=== PATIENT | male | born 1975 | race Caucasian/White ===

== ENCOUNTER 2020-05-23 20:58 | Inpatient (IN) | payer OTHER, SELFPAY ==
[2020-05-23] VITALS (8 sets, daily range): BP systolic 117–168; BP diastolic 77–93; PULSE 79–92; RESP 18–23; TEMP 36.1–36.9; O2SAT 96–98; BMI 35.6
--- NOTE | 2020-05-23 21:04 | EKG12_ITS ---
Test Reason : CP Blood Pressure : / mmHG Vent. Rate : 090 BPM Atrial Rate : 090 BPM P-R Int : 144 ms QRS Dur : 094 ms QT Int : 364 ms P-R-T Axes : 040 -57 058 degrees QTc Int : 445 ms Normal sinus rhythm Left axis deviation Nonspecific ST abnormality Abnormal ECG Confirmed by GABRIEL DUBON, ANA ([id number]), editorial writer MISHA WILSON ([id number]) on 05/26/2020 11:47:55 A M Referred By: TRACI Confirmed By:RUPESH RIOS MD
--- NOTE | 2020-05-23 21:04 | ED.DCSUM_ITS ---
History of Present Illness Chief Complaint: Chest Pain Informant: Patient Narrative: 44-year-old male with past medical history of diet-controlled diabetes presents with concern for left-sided chest pain radiating into his left arm. States it began yesterday. States it is sharp in nature. Intermittent. Patient states he gets short of breath whenever he exerts himself. Denies any nausea, vomiting, diaphoresis. Patient smokes 1 pack/day. No family history of early heart disease. Past Medical History - Allergies and Home Meds Allergies/Adverse Reactions: Allergies No Known Allergies Allergy (Verified 05/23/20 20:59) Prior records reviewed: Yes Past Medical History: - - DMII - diet controlled Surgical History: noncontributory Lives: Spouse/ Significant Other Smoking Status: Current some day smoker Alcohol: None Drugs: None - Family History Maternal Family History: Reports: Heart Disease Paternal Family History: Reports: Heart Disease Review of Systems General: Denies: Chills, Fever, Sweats Eyes: Denies: Visual changes - bilaterally, Diplopia ENT: Denies: Rhinorrhea, Sore throat Cardiovascular: Reports: Chest pain. Denies: Palpitations Respiratory: Reports: Dyspnea on exertion. Denies: Dyspnea, Cough Gastrointestinal: Denies: Abdominal pain, Nausea, Vomiting, Diarrhea, Melena, Hematochezia Genitourinary: Denies: Dysuria, Hematuria, Frequency Musculoskeletal: Denies: Back pain, Extremity Pain Skin: Denies: Rash, Wounds Neurological: Denies: Headache, Weakness, Numbness Physical Exam Vital Signs/Narrative: Vital Signs Temp Pulse Resp BP Pulse Ox 05/23/20 20:59 97.0 F L 91 23 H 168/93 H 97 Inital Vital Signs reviewed: Yes General: Well nourished, Well developed, No Acute Distress Head: Normocephalic, Atraumatic Eyes: Perrl, EOMI ENT: Moist mucous membranes, No rhinorrhea Neck: Supple, Nontender Cardiovascular: Regular rate, Regular rhythm, No murmurs Respiratory: No distress, CTA bilaterally, Chest nontender Abdomen: Soft, Nontender, Nondistended, Normal bowel sounds Back: Nontender, Normal Inspection Extremities: Nontender, No edema Skin: Normal color, No rash Neurological: Alert, Oriented x3, Cranial nerves II-XII grossly intact, Normal Strength, Normal Sensation Psychological: Normal affect, Normal Mood Diagnostic/Tx/Re-eval Chest X-Ray - ED: 1 View, Read by ED Physician, Read by Radiologist, Normal Clinical Impression(s) from Imaging Studies Chest X-Ray 05/23/20 21:20 IMPRESSION: Degenerative changes, as described above. No demonstrated acute cardiopulmonary process. Electronically Signed: Enmanuel Bruce DO at 21:32 EST Tel [phone], Service support , Chest CTA 05/23/20 21:40 IMPRESSION: Normal CTA chest examination, without a demonstrated pulmonary embolism or arterial dissection. Electronically Signed: Enmanuel Bruce DO at 23:04 EST Tel [phone], Service support , Laboratory Data 05/23/20 05/23/20 05/23/20 21:00 21:00 21:00 WBC 8.8 RBC 5.66 Hgb 16.2 Hct 48.2 MCV 85.2 MCH 28.6 MCHC 33.6 RDW Std Deviation 36.1 RDW Coeff of Sebastián 11.7 Plt Count 246 MPV 10.0 Immature Gran % (Auto) 0.500 Neut % (Auto) 55.2 Lymph % (Auto) 34.5 [place] % (Auto) 7.4 Eos % (Auto) 1.9 Baso % (Auto) 0.5 Absolute Neuts (auto) 4.9 Absolute Lymphs (auto) 3.04 Nucleated RBC % 0 APTT 26.5 Sodium 136 Potassium 4.3 Chloride 104 Carbon Dioxide 27.0 Anion Gap 5 BUN 17 Creatinine 1.01 Estim Creat Clear Calc 107.38 Est GFR (MDRD) Af Amer 102 Est GFR (MDRD) Non-Af 85 BUN/Creatinine Ratio 16.8 Glucose 264 H Calcium 9.3 Troponin I 0.465 H - Rhythm Strip Rhythm Strip: Sinus Rhythm Rate: 90 Ectopy: None - EKG Initial EKG Interpretation: Sinus Rhythm - Normal sinus rhythm at 90 bpm. NV interval of 144 ms. QTC of [address] changes. Left axis deviation. - Medical Decision Making Patient appears well and nontoxic. Vital signs within normal limits. EKG shows nonspecific ST changes. Patient given aspirin. Troponin elevated at 0.465. Spoke with cardiology on-call Dr. Fountain who requested CTA given the patient's nature of pain being sharp. CTA negative. Patient started on heparin infusion. Spoke with hospitalist who is agreeable with admission. Patient did have increasing chest pain and was given nitroglycerin without relief. EKG was repeated which was unchanged. Patient was given a dose of morphine which did improve his pain. Stable at time of admission. Impression: 1. NSTEMI 2. Unstable angina - Critical Care Time Critical care time (excluding procedures): 30-74 minutes, Discussing w/Patient &/or Family/Rd Mechanical Engineer, Discussing w/Consultants, Arranging Admission or Transfer, Performing Direct Patient Care at Bedside ED Disposition - Plan for ED Patient: Disposition: Acute Care Hospital [facility]
[2020-05-23 21:16] LABS: Absolute Lymphocyte Count 3.04 X10^3/uL (0.83-4.51); Absolute Neutrophil Count 4.9 X10^3/uL (2.0-7.7); Basophil# 0.04 X10^3/uL; Basophil% 0.5 % (0-1); Eosinophil# 0.17 X10^3/uL; Eosinophils% 1.9 % (0-5); Hematocrit 48.2 % (40-54); Hemoglobin 16.2 g/dL (13.0-16.5); Lymphocyte # 3.04 X10^3/ul (4.0); Lymphocyte % 34.5 % (19-41); Mean Corp Hgb Conc 33.6 g/dL (32-36); Mean Corpuscular Hgb 28.6 pg (27.0-32.0); Mean Corpuscular Volume 85.2 fL (80-94); Monocyte# 0.65 X10^3/uL; Monocyte% 7.4 % (0-10); NRBC Flagged by Analyzer 0 % (0-5); Neutrophil # 4.87 X10^3/uL (2.7-7.7); Neutrophil % 55.2 % (47-70); Platelet Count 246 K/mm3 (150-450); RBC Distribution Width CV 11.7 % (11.6-14.6); RBC Distribution Width SD 36.1 fl (35.1-43.9); Red Blood Count 5.66 M/mm3 (4.6-6.2); White Blood Count 8.8 K/mm3 (4.4-11.0)
[2020-05-23] MEDS: Aspirin 81 MG TAB.CHEW 324 MG PO (21:20)
--- NOTE | 2020-05-23 21:20 | RAD_ITS ---
STUDY: X-RAY CHEST REASON FOR EXAM: Male, 44 years old. Internal chest pain radiates to left arm. Symptoms began yesterday. TECHNIQUE: Single AP portable view of the chest. COMPARISON: 04/25/2017. FINDINGS: The lungs are clear and expanded. There is no demonstrated pleural abnormality. Normal size heart. Normal mediastinum and melissa. Normal visualized pulmonary arteries. Normal visualized aortic arch and descending thoracic aorta. There are diffuse degenerative changes of the visualized thoracic spine. Normal visualized ribs, clavicles, and shoulders. There is no demonstrated abnormality of the visualized soft tissue structures of the upper abdomen. RAD/Chest 1 View (Portable) IMPRESSION: Degenerative changes, as described above. No demonstrated acute cardiopulmonary process. Electronically Signed: Enmanuel Bruce DO at 21:32 EST Tel [phone], Service support ,
[2020-05-23 21:29] LABS: Anion Gap 5 (5-15); BUN 17 mg/dL (7-18); BUN/Creat Ratio 16.8 RATIO (10-20); Calcium,Total 9.3 mg/dL (8.5-10.1); Chloride 104 mmol/L (98-107); Creatinine, Serum 1.01 mg/dL (0.70-1.30); EST Glomerular Filtration Rate 85 mL/min (>60); Est Glom Filt Rate - Afr Amer 102 mL/min (>60); Estimated Creatinine Clearance 107.38 ml/min; Glucose 264 mg/dL (74-106); Potassium 4.3 mmol/L (3.5-5.1); Sodium Level 136 mmol/L (136-145)
--- NOTE | 2020-05-23 21:40 | CT_ITS ---
STUDY: CTA CHEST REASON FOR EXAM: Male, 44 years old. Sternal chest pain radiating to left arm which began yesterday. RADIATION DOSAGE (If Supplied By Facility): CTDIvol = ( 12.595 ) mGy, DLP = ( 502.98 ) mGycm TECHNIQUE: The examination was performed with the intravenous administration of IV 100mL Isovue-370. Post-processing of the angiographic images was performed, with multiplanar reformation and 3D reconstruction. Individualized dose optimization techniques were used for this CT. COMPARISON: Chest, 05/23/2020. FINDINGS: Normal enhancement of the main pulmonary artery and right and left pulmonary arteries. Normal enhancement of the bilateral peripheral pulmonary arteries. There is no demonstrated pulmonary embolism. Normal thoracic aorta and visualized great vessels. There is no demonstrated aortic dissection. Normal heart and pericardium. Normal mediastinum. Normal hilar regions. Normal visualized trachea and bronchi. The lungs are well expanded. Normal pulmonary parenchyma. Normal pleura. Normal chest wall structures. Degenerative changes of the thoracic spine The liver is enlarged and fatty infiltrated. Calcified granulomata are noted in segment 4A. CT/CTA Chest W/WO Contrast IMPRESSION: Normal CTA chest examination, without a demonstrated pulmonary embolism or arterial dissection. Electronically Signed: Enmanuel Bruce DO at 23:04 EST Tel [phone], Service support ,
--- NOTE | 2020-05-23 21:57 | EKG12_ITS ---
Test Reason : REPEAT CP Blood Pressure : / mmHG Vent. Rate : 083 BPM Atrial Rate : 083 BPM P-R Int : 136 ms QRS Dur : 094 ms QT Int : 372 ms P-R-T Axes : 035 -51 061 degrees QTc Int : 437 ms Normal sinus rhythm Left anterior fascicular block Cannot rule out Inferior infarct (masked by fascicular block?) , age undetermined Abnormal ECG Confirmed by GABRIEL DUBON, ANA ([id number]), editor managing director MISHA WILSON ([id number]) on 05/26/2020 11:48:13 A M Referred By: TRACI Confirmed By:RUPESH RIOS MD
[2020-05-23] MEDS: Nitroglycerin SL (ED/IMG/CATH) 0.4 MG TABLET SUBLINGUAL ×3 (21:59→22:09)
[2020-05-23] MEDS: Morphine 4 MG/ML Syringe IV (22:36)
[2020-05-23] MEDS: Ondansetron 4 MG/2 ML Vial IV (22:36)
--- NOTE | 2020-05-23 23:21 | HP.PCM_ITS ---
History of Present Illness Date of Admission: 05/23/20 Chief Complaint: chest pain The patient is a 44 year old M with a PMH of diabetes mellitus who was admitted via the ED on 05/23/2020 with a complaint of chest pain. Chest pain was sharp, intermittent, radiated down his left arm, and he had no aggravated or relieving factors. He has not had such symptoms before. He denied any lightheadedness, nausea, vomiting, fever or chills. Review of systems was otherwise negative. Chest pain had been going on for about 2 days prior to him coming in. He has never had a heart attack before, though he says both parents have a strong family history of heart disease. Vitals in the ED were stable. CBC was unremarkable and BMP was also unremarkable. Initial troponin was 0.465. CTA was negative for any PE. EKG showed no acute ST changes. He is being admitted to be managed for nonstemi. He was started on heparin drip. Cardiology was consulted by ER doctor. Past Medical History Past Medical History (Chronic Problems): Chronic Problems Smoker (Chronic) Allergies No Known Allergies Allergy (Verified 05/23/20 20:59) Home Medications: Ambulatory Orders Medication Instructions Recorded Multivitamin [Daily Value] 1 ea PO DAILY 05/23/20 Surgical History: noncontributory Lives: Spouse/ Significant Other Smoking Status: Heavy Smoker (>10/day) Alcohol: None Drugs: None - *Family History Maternal History Items: Heart Disease Paternal History Items: Heart Disease Review of Systems Constitutional: Denies: Chills, Fever, Weight Change HEENT: Denies: Head Aches, Sinus Congestion, Sinus Drainage Cardiovascular: Reports: Chest Pain, Chest Pressure. Denies: Palpitations Respiratory: Denies: Cough, Shortness of Breath, Shortness of breath at rest, Sputum production Gastrointestinal: Denies: Abdominal Pain, Nausea, Vomiting Genitourinary: Denies: Dysuria Musculoskeletal: Denies: Joint Pain, Joint Tenderness Skin: Denies: Rash, Wounds Neurological: Denies: Numbness, Tingling, Focal weakness Psychiatric: Denies: Anxiety, Depression, Homicidal Ideations, Suicidal Ideations Hematologic/ Lymphatic: Denies: Easy Bruising, Easy Bleeding VTE Information - Inpt Only VTE Present on Admission: No VTE Pharm Prophylaxis ordered?: Yes - Physical Exam Vitals/I&O's: Vital Signs Temp Pulse Resp BP Pulse Ox 97.0 F L 79 18 118/77 98 05/23/20 20:59 05/23/20 23:00 05/23/20 23:00 05/23/20 23:00 05/23/20 23:00 Oxygen Delivery Method Room Air Weight: 277 lb 12.519 oz Body Mass Index (BMI) 35.6 General: Alert, Oriented x3, Cooperative HEENT: Atraumatic, PERRLA, EOMI, Normocephalic Oral: Moist Mucosa Neck: Supple, No JVD, Negative Carotid Bruits Lungs: Clear to auscultation, Normal air movement Cardiovascular: Regular rate, No murmurs Abdomen: Bowel Sounds Present, Soft, Non Tender Extremities: No edema, Capillary Refill Less than 3 Seconds Skin: No rashes, No breakdown Musculoskeletal: No Tenderness to Palpation of Joints or Extremities Neurological: Cranial nerves II-XII grossly intact Psych/Mental Status: Normal Affect, Appropriate, Alert and oriented to time, place, person, mood and affect Laboratory Results 05/23/20 21:00: WBC 8.8, RBC 5.66, Hgb 16.2, Hct 48.2, MCV 85.2, MCH 28.6, MCHC 33.6, RDW Std Deviation 36.1, RDW Coeff of Sebastián 11.7, Plt Count 246, MPV 10.0, Immature Gran % (Auto) 0.500, Neut % (Auto) 55.2, Lymph % (Auto) 34.5, [place]pp % (Auto) 7.4, Eos % (Auto) 1.9, Baso % (Auto) 0.5, Absolute Neuts (auto) 4.9, Absolute Lymphs (auto) 3.04, Nucleated RBC % 0 05/23/20 21:00: Sodium 136, Potassium 4.3, Chloride 104, Carbon Dioxide 27.0, Anion Gap 5, BUN 17, Creatinine 1.01, Estim Creat Clear Calc 107.38, Est GFR (MDRD) Af Amer 102, Est GFR (MDRD) Non-Af 85, BUN/Creatinine Ratio 16.8, Glucose 264 H, Calcium 9.3, Troponin I 0.465 H Diagnostic Data Chest X-Ray 05/23/20 21:20 IMPRESSION: Degenerative changes, as described above. No demonstrated acute cardiopulmonary process. Electronically Signed: Enmanuel Bruce DO at 21:32 EST Tel [phone], Service support , Chest CTA 05/23/20 21:40 IMPRESSION: Normal CTA chest examination, without a demonstrated pulmonary embolism or arterial dissection. Electronically Signed: Enmanuel Bruce DO at 23:04 EST Tel [phone], Service support , Current Medications Heparin Sodium/Dextrose () 25,000 units in 250 mls @ 0 mls/hr IV .Q0M RAYMOND; Protocol Assessment/Plan All Active Problems Chest pain (Acute) 44 y/o admitted with a complaint of chest pain #Nonstemi * admit to PCu with telemetry * on heparin drip * pO aspirin 81mg daily. * give high intensity statin * cycle troponins * consult cardiology * 2D echo * SL nitroglycerin prn * #History of nicotine dependence: counseled to quit. Nicotine patch 21mg daily. DVT prophylaxis: on nicotine patch Code status: full code * Patient counseled extensively about different types of CODE STATUS including full code, DNR CCA and DNR CCA. Patient elects to be full code. Total [id number] time 18 minutes. Inpatient E&M: 21732 Init Hosp L3 Procedures: 99445 Advncd Care Plan 30 Min
[2020-05-23 23:30] LABS: Partial Thromboplast Time 26.5 Seconds (24.1-36.2)
[2020-05-23] MEDS: HEPARIN/D5w 25,000 UNITS 25,000 UNITS/250 ML IV.SOLN. 16 UNITS IV (23:40)
[2020-05-24] VITALS (23 sets, daily range): BP systolic 105–143; BP diastolic 68–86; PULSE 69–84; RESP 16–18; TEMP 36.5–36.9; O2SAT 93–98; BMI 25.0
--- NOTE | 2020-05-24 00:37 | EKG12_ITS ---
Test Reason : Blood Pressure : / mmHG Vent. Rate : 068 BPM Atrial Rate : 068 BPM P-R Int : 146 ms QRS Dur : 090 ms QT Int : 408 ms P-R-T Axes : 041 -59 -38 degrees QTc Int : 433 ms Normal sinus rhythm Left anterior fascicular block Inferior infarct , age undetermined Abnormal ECG When compared with ECG of 24-MAY-2020 13:50, MANUAL COMPARISON REQUIRED, DATA IS UNCONFIRMED Confirmed by DILLON DUBON, JUDITH ([id number]), manuscript editor MISHA WILSON ([id number]) on 05/27/2020 10:58:57 AM Referred By: THAI Confirmed By:JUDITH CARRANZA MD
[2020-05-24] MEDS: 0.9% Saline Lock 10 ML Syringe IV (01:21)
[2020-05-24] MEDS: 0.9% Normal Saline 1,000 ML 125 ML IV ×2 (01:25→09:48)
[2020-05-24] MEDS: Morphine 2 MG/ML Syringe IV ×5 (01:33→22:13)
[2020-05-24] MEDS: Atorvastatin Calcium 80 MG Tablet PO ×2 (01:33→22:03)
--- NOTE | 2020-05-24 01:44 | PCS.PANDOC ---
PANDEMIC DOCUMENTATION INITIATED: Date: 05/24/20 Time: 00:02
[2020-05-24 03:46] LABS: Absolute Lymphocyte Count 2.86 X10^3/uL (0.83-4.51); Absolute Neutrophil Count 3.7 X10^3/uL (2.0-7.7); Basophil# 0.05 X10^3/uL; Basophil% 0.7 % (0-1); Eosinophil# 0.17 X10^3/uL; Eosinophils% 2.3 % (0-5); Hematocrit 45.9 % (40-54); Hemoglobin 15.2 g/dL (13.0-16.5); Lymphocyte # 2.86 X10^3/ul (4.0); Lymphocyte % 38.7 % (19-41); Mean Corp Hgb Conc 33.1 g/dL (32-36); Mean Corpuscular Hgb 28.3 pg (27.0-32.0); Mean Corpuscular Volume 85.3 fL (80-94); Mean Platelet Vol. 9.9 fl (6.2-12.0); Monocyte# 0.62 X10^3/uL; Monocyte% 8.4 % (0-10); NRBC Flagged by Analyzer 0 % (0-5); Neutrophil # 3.68 X10^3/uL (2.7-7.7); Neutrophil % 49.8 % (47-70); Platelet Count 222 K/mm3 (150-450); RBC Distribution Width CV 11.9 % (11.6-14.6); RBC Distribution Width SD 36.8 fl (35.1-43.9); Red Blood Count 5.38 M/mm3 (4.6-6.2); White Blood Count 7.4 K/mm3 (4.4-11.0)
[2020-05-24 04:11] LABS: Anion Gap 6 (5-15); BUN 17 mg/dL (7-18); BUN/Creat Ratio 21.1 RATIO (10-20); Calcium,Total 8.5 mg/dL (8.5-10.1); Chloride 107 mmol/L (98-107); Cholesterol 184 mg/dL (200); Creatinine, Serum 0.81 mg/dL (0.70-1.30); EST Glomerular Filtration Rate 110 mL/min (>60); Est Glom Filt Rate - Afr Amer 133 mL/min (>60); Glucose 277 mg/dL (74-106); High Density Lipoprotein 28 mg/dL; Potassium 3.9 mmol/L (3.5-5.1); Sodium Level 139 mmol/L (136-145); Triglycerides 368 mg/dL; Very Low Density Lipoprotein 74 mg/dL (5-40)
[2020-05-24 04:56] LABS: BNP,B-Type NATRIURETIC PEPTIDE 18.7 pg/mL (0-100)
--- NOTE | 2020-05-24 05:55 | ECHOCS_ITS ---
Reason For Study: Chest Pain Procedure This was a 2D Doppler, Color Flow transthoracic echocardiogram. The study was technically difficult. Contrast injection was performed. Exam performed portable in patient room. Left Ventricle Normal LV size. The estimated ejection fraction is 45-50 %. No evidence for diastolic dysfunction. mild hypokinesis of the posterolateral wall. Right Ventricle Normal RV size. Normal systolic function. Atria Normal left atrium. Normal right atrium. No doppler evidence for ASD. Mitral Valve There is no mitral valve stenosis. No mitral valve insufficiency. Tricuspid Valve There is no tricuspid stenosis. Unable to estimate RV systolic pressure due to inadequate jet, pulmonary artery pressure probably normal. Aortic Valve Trisinus/trileaflet aortic valve. There is no aortic stenosis. No aortic valve insufficiency. Pulmonic Valve There is no pulmonic valvular stenosis. No pulmonic valve insufficiency. Great Vessels Normal aortic root. Pericardium/Pleural No pericardial effusion. Medication Diluted definity 3ml given slow IV push to enhance endocardial definition. MMode/2D Measurements & Calculations LVIDd: 4.9 cm IVSd: 1.2 cm LA dimension: 4.1 cm LVIDs: 3.8 cm LVPWd: 1.3 cm RVDd: 4.3 cm FS: 22.4 % LAV(MOD-bp): 53.4 ml LA A4 area: 18.7 cm2 RA A4 area: 14.0 cm2 LAV(MOD-bp) Indexed: 24.8 ml/m2 LAV(MOD-sp2): 57.5 ml LAV(MOD-sp4): 50.1 ml Time Measurements MV dec time: 0.26 sec Doppler Measurements & Calculations MV E max sammy: 69.8 cm/sec Lat Peak E' Sammy: 12.3 cm/sec Med Peak E' Sammy: 9.4 cm/sec MV A max sammy: 56.6 cm/sec E/E' lat: 5.7 E/E' med: 7.5 MV E/A: 1.2 MV V2 max: 69.5 cm/sec MV P1/2t max sammy: 69.8 cm/sec Ao V2 max: 128.1 cm/sec MV max P.9 mmHg MV P1/2t: 68.9 msec Ao max P.6 mmHg MV V2 mean: 40.3 cm/sec MV dec slope: 296.9 cm/sec2 MV mean P.76 mmHg MV V2 VTI: 20.6 cm MVA(P1/2t): 3.2 cm2 LV V1 max: 109.1 cm/sec PA V2 max: 98.2 cm/sec LV V1 max P.8 mmHg Interpretation Summary The estimated ejection fraction is 45-50 %. No evidence for diastolic dysfunction. mild hypokinesis of the posterolateral wall Ordering Physician: Maddy Brownlee Referring Physician: no PCP noted Performed By: Carmine Hebert RCS
[2020-05-24 06:54] LABS: Partial Thromboplast Time 33.8 Seconds (24.1-36.2)
[2020-05-24] MEDS: Heparin Injection (Vial) 5,000 UNIT/ML VIAL IV (07:08)
[2020-05-24] MEDS: Aspirin E.C. 81 MG Tablet PO (07:49)
--- NOTE | 2020-05-24 08:35 | EKG12_ITS ---
Test Reason : POSTPCI Blood Pressure : / mmHG Vent. Rate : 071 BPM Atrial Rate : 071 BPM P-R Int : 144 ms QRS Dur : 088 ms QT Int : 370 ms P-R-T Axes : 035 -47 014 degrees QTc Int : 402 ms Normal sinus rhythm Left axis deviation Inferior infarct , age undetermined Abnormal ECG When compared with ECG of 24-MAY-2020 08:48, MANUAL COMPARISON REQUIRED, DATA IS UNCONFIRMED Confirmed by DILLON DUBON, JUDITH ([id number]), continuity editor MISHA WILSON ([id number]) on 05/27/2020 11:00:37 AM Referred By: SUMEET Confirmed By:JUDITH CARRANZA MD
--- NOTE | 2020-05-24 09:39 | CASEMGMT ---
Addendum entered by Maryellen Herndon 05/24/20 16:28: Pt had PCI done today. Will go home on Brilinta. Dr Faulkner has provided pt w/30-day Bril[employer] Savings card. PARTH CORTEZ to room and reviewed card/instructions of use with pt and . They were both made aware of importance of talking with process server if refills are not-affordable to discuss other more affordable options. They voice understanding. Original Note: RN CM SUPERVISOR SHOP DANA to room to meet with patient for initial transition planning/care coordination assessment. PARTH CORTEZ introduced self and role at [facility]. Pt voices understanding and consents to assessment at this time. Pt resting in bed in no distress at this time. Pt is A/O at this time and answers all questions appropriately. Care providers, pharmacy, and demographics verified/updated at this time. PCP: No PCP. States has [facility] [place] in the past, but it has been a couple of years. Specialists: None Preferred Pharmacy: [facility]. States if they are not open when he is ready for discharge, then [facility] in [place]. Insurance: No insurance/self-pay Prescription Benefit: None Living Will/HPOA: [facility] does not have LW or HCPOA . Interested in more information but states does not want to talk with SW at this time to complete paperwork. Provided information on advanced directives and given Social Service rac card with number to call if chooses in the future to utilize [facility] social work for advanced directive completion. Educated patient that, if patient so chooses, can come back to [facility] and meet with a SW as an outpatient to complete health care advanced directives. Patient expresses understanding. LNOK: Living Arrangements: Lives in 2-story home with his and 5 kids (all 16 yrs old and younger). Independent. Self-employed. [employer]. Transportation: Pt states drives self and states no transportation concerns at this time. also drives DME: Has a glucometer, but states It is not accurate. Made aware [facility] sells inexpensive [employer] brand that can be purchased [id number]. Pt states no need for further DME at this time. HHC/SNF: No history of either and no needs identified. Pt wishes to return home and states has no concerns with going home at time of discharge. Pt states does not smoke or drink ETOH. CM to follow for any discharge planning/needs. Pt voices no concerns/needs at this time. Advised pt to ask for CM if any questions/concerns/needs arise. Voices understanding. PLAN: Home w/spousal support and discharge plans in place. Pt to have heart cath done today. If PCI is needed, follow for any anti-coagulant prescribed at discharge. Pt will need 30-day savings card and instructions on use. Ann-Marie JETER RN CM
[2020-05-24] MEDS: oxyCODONE 5 MG Tablet PO ×3 (09:52→20:07)
--- NOTE | 2020-05-24 11:47 | PN_ITS ---
Subjective: Patient seen and examined. Reports ongoing chest discomfort as well as left arm pain. Plan for heart cath at noon. He denies shortness of breath or other associated complaints. - Physical Exam Vitals/I&O's: Vital Signs Temp Pulse Resp BP Pulse Ox 98.2 F 80 16 141/81 H 95 05/24/20 10:23 05/24/20 10:23 05/24/20 10:23 05/24/20 10:23 05/24/20 10:23 Oxygen Delivery Method Room Air Weight: 195 lb Body Mass Index (BMI) 25.0 Intake and Output for Last 24 Hours 05/22/20 05/23/20 05/24/20 23:59 23:59 23:59 Intake Total 5.07 / 5.07 1115.2 / 1115.2 Balance 5.07 / 5.07 1115.2 / 1115.2 General: Alert, Oriented x3, Cooperative HEENT: Atraumatic, PERRLA, EOMI, Normocephalic Neck: Supple, No JVD, Negative Carotid Bruits Lungs: Clear to auscultation, Normal air movement Cardiovascular: Regular rate, No murmurs Abdomen: Bowel Sounds Present, Soft, Non Tender, Non-Distended Extremities: No clubbing, No cyanosis, No edema, Capillary Refill Less than 3 Seconds Skin: No rashes, No breakdown Musculoskeletal: No Tenderness to Palpation of Joints or Extremities Neurological: Cranial nerves II-XII grossly intact, Neuro grossly intact Psych/Mental Status: Normal Affect, Appropriate Laboratory Results 05/23/20 21:00: WBC 8.8, RBC 5.66, Hgb 16.2, Hct 48.2, MCV 85.2, MCH 28.6, MCHC 33.6, RDW Std Deviation 36.1, RDW Coeff of Sebastián 11.7, Plt Count 246, MPV 10.0, Immature Gran % (Auto) 0.500, Neut % (Auto) 55.2, Lymph % (Auto) 34.5, Taney % (Auto) 7.4, Eos % (Auto) 1.9, Baso % (Auto) 0.5, Absolute Neuts (auto) 4.9, Absolute Lymphs (auto) 3.04, Nucleated RBC % 0 05/23/20 21:00: Sodium 136, Potassium 4.3, Chloride 104, Carbon Dioxide 27.0, Anion Gap 5, BUN 17, Creatinine 1.01, Estim Creat Clear Calc 107.38, Est GFR (MDRD) Af Amer 102, Est GFR (MDRD) Non-Af 85, BUN/Creatinine Ratio 16.8, Glucose 264 H, Calcium 9.3, Troponin I 0.465 H 05/23/20 21:00: APTT 26.5 05/24/20 00:45: Troponin I 1.170 H* 05/24/20 03:40: WBC 7.4, RBC 5.38, Hgb 15.2, Hct 45.9, MCV 85.3, MCH 28.3, MCHC 33.1, RDW Std Deviation 36.8, RDW Coeff of Sebastián 11.9, Plt Count 222, MPV 9.9, Immature Gran % (Auto) 0.100, Neut % (Auto) 49.8, Lymph % (Auto) 38.7, Taney % (Auto) 8.4, Eos % (Auto) 2.3, Baso % (Auto) 0.7, Absolute Neuts (auto) 3.7, Absolute Lymphs (auto) 2.86, Nucleated RBC % 0 05/24/20 03:40: Sodium 139, Potassium 3.9, Chloride 107, Carbon Dioxide 26.0, Anion Gap 6, BUN 17, Creatinine 0.81, Estim Creat Clear Calc 133.90, Est GFR (MDRD) Af Amer 133, Est GFR (MDRD) Non-Af 110, BUN/Creatinine Ratio 21.1 H, Glucose 277 H, Calcium 8.5, Triglycerides 368 H, Cholesterol 184, LDL Cholesterol 82, VLDL Cholesterol 74 H, HDL Cholesterol 28 L 05/24/20 03:40: B-Natriuretic Peptide 18.7 05/24/20 03:40: Troponin I 1.640 H* 05/24/20 06:20: APTT 33.8 Current Medications Acetaminophen (Acetaminophen 325 Mg Tablet) 650 mg PO Q6H PRN PRN PRN Reason: Pain Score 1-10/Temp > 100.7 F Aspirin (Aspirin E.C. 81 Mg Tablet) 81 mg PO DAILY@0800 [facility] Last Admin: 05/24/20 07:49 Dose: 81 mg Documented by: Atorvastatin Calcium (Atorvastatin Calcium 80 Mg Tablet) 80 mg PO QHS [facility] Last Admin: 05/24/20 01:33 Dose: 80 mg Documented by: Heparin Sodium (Porcine) (Heparin Injection (Vial) 5,000 Unit/Ml Vial) 0 unit IV UD PRN; Protocol PRN Reason: dose adjustment Last Admin: 05/24/20 07:08 Dose: 3,000 unit Documented by: Heparin Sodium/Dextrose () 25,000 units in 250 mls @ 16 mls/hr IV .[id number] [facility]; Protocol Last Titration: 05/24/20 07:11 Dose: 1,800 units/hr, 18 mls/hr Documented by: Sodium Chloride () 1,000 mls @ 125 mls/hr IV .Q8H RAYMOND Stop: 05/24/20 16:39 Last Admin: 05/24/20 09:48 Dose: 125 mls/hr Documented by: Morphine Sulfate (Morphine 2 Mg/Ml Syringe) 2 mg IV Q3H PRN PRN PRN Reason: Pain Score 6-10 Last Admin: 05/24/20 07:49 Dose: 2 mg Documented by: Multivitamins (Multivitamins,Therapeutic Tablet) [facility] Nitroglycerin (Nitroglycerin (Inpatient Use) 0.4 Mg Tab.Subl) 0.4 mg SUBLINGUAL Q5M PRN PRN Reason: CARDIAC/CHEST PAIN Ondansetron HCl (Ondansetron 4 Mg/2 Ml Vial) 4 mg IV Q8H PRN PRN PRN Reason: NAUSEA/VOMITING Oxycodone HCl (Oxycodone 5 Mg Tablet) 5 mg PO Q4H PRN PRN PRN Reason: Pain Score 4-5 Last Admin: 05/24/20 09:52 Dose: 5 mg Documented by: Sodium Chloride (0.9% Saline Lock 10 Ml Syringe) 10 - 40 ml IV UD PRN PRN Reason: SALINE FLUSH Last Admin: 05/24/20 01:21 Dose: 10 ml Documented by: Medical Necessity - Tobacco Use Smoking Status: Heavy Smoker (>10/day) Tobacco Use: Cigarettes Assessment/Plan All Active Problems Chest pain (Acute) 1. NSTEMI-cardiology consulted. Continue aspirin, statin, heparin drip. Plan for heart cath at noon. 2. Tobacco dependence-advised smoking cessation. 3. Hyperlipidemia-initiate statin. DVT prophylaxis-Heparin drip. This patient was seen by MAYA Goins under the supervision of Dr. Faulkner.
--- NOTE | 2020-05-24 11:54 | CON.PCM_ITS ---
Reason for Consult Date of Consultation: 05/24/20 Reason for Consultation: Non-STEMI History of Present Illness: The patient is a 44 year old M [admitted with chest pain. Chest pain is retrosternal radiating to the back and to the left arm. His troponin has gone up to 1.6. CTA was negative for PE or aortic dissection. Review of systems: All systems reviewed. All else is negative except that in HPI.] Past Medical History Allergies/Adverse Reactions: Allergies No Known Allergies Allergy (Verified 05/23/20 20:59) Home Medications: Ambulatory Orders Medication Instructions Recorded Multivitamin [Daily Value] 1 ea PO DAILY 05/23/20 Past Medical History (Chronic Problems): Chronic Problems Smoker (Chronic) Surgical History: noncontributory - *Family History Maternal History Items: Heart Disease Paternal History Items: Heart Disease Lives: Spouse/ Significant Other Smoking Status: Heavy Smoker (>10/day) Tobacco Use: Cigarettes Alcohol: None Drugs: None Objective: Vital Signs Temp Pulse Resp BP Pulse Ox 98.2 F 80 16 141/81 H 95 05/24/20 10:23 05/24/20 10:23 05/24/20 10:23 05/24/20 10:23 05/24/20 10:23 Oxygen Delivery Method Room Air Weight: 195 lb Body Mass Index (BMI) 25.0 Intake and Output for Last 24 Hours 05/22/20 05/23/20 05/24/20 23:59 23:59 23:59 Intake Total 5.07 / 5.07 1115.2 / 1115.2 Balance 5.07 / 5.07 1115.2 / 1115.2 General: Awake, Alert, Oriented x 3 HEENT: Atraumatic Oral: Moist Mucosa Neck: Supple Cardiovascular: Regular Rhythm Psych/Mental Status: Appropriate 05/23/20 21:00: WBC 8.8, RBC 5.66, Hgb 16.2, Hct 48.2, MCV 85.2, MCH 28.6, MCHC 33.6, Plt Count 246, MPV 10.0, Immature Gran % (Auto) 0.500, Neut % (Auto) 55.2, Lymph % (Auto) 34.5, [place] % (Auto) 7.4, Eos % (Auto) 1.9, Baso % (Auto) 0.5, Absolute Neuts (auto) 4.9, Nucleated RBC % 0 05/23/20 21:00: Sodium 136, Potassium 4.3, Chloride 104, Carbon Dioxide 27.0, Anion Gap 5, BUN 17, Creatinine 1.01, Est GFR (MDRD) Af Amer 102, Est GFR (MDRD) Non-Af 85, BUN/Creatinine Ratio 16.8, Glucose 264 H, Calcium 9.3, Troponin I 0.465 H 05/23/20 21:00: APTT 26.5 05/24/20 00:45: Troponin I 1.170 H* 05/24/20 03:40: WBC 7.4, RBC 5.38, Hgb 15.2, Hct 45.9, MCV 85.3, MCH 28.3, MCHC 33.1, Plt Count 222, MPV 9.9, Immature Gran % (Auto) 0.100, Neut % (Auto) 49.8, Lymph % (Auto) 38.7, Greenlee % (Auto) 8.4, Eos % (Auto) 2.3, Baso % (Auto) 0.7, Absolute Neuts (auto) 3.7, Nucleated RBC % 0 05/24/20 03:40: Sodium 139, Potassium 3.9, Chloride 107, Carbon Dioxide 26.0, Anion Gap 6, BUN 17, Creatinine 0.81, Est GFR (MDRD) Af Amer 133, Est GFR (MDRD) Non-Af 110, BUN/Creatinine Ratio 21.1 H, Glucose 277 H, Calcium 8.5, Triglycerides 368 H, Cholesterol 184, LDL Cholesterol 82, VLDL Cholesterol 74 H, HDL Cholesterol 28 L 05/24/20 03:40: B-Natriuretic Peptide 18.7 05/24/20 03:40: Troponin I 1.640 H* 05/24/20 06:20: APTT 33.8 Rhythm: EKG: ECHO: Stress Test: Cardiac Cath: PCI: CT Surgery: Holter monitor: EPS: PPM: CXR: Chest CT Scan: Assessment/Plan 1. Non-STEMI: We will proceed with coronary angiography. Risks and benefits explained to the patient. Rest of the management will be based on the angiography findings.
--- NOTE | 2020-05-24 12:45 | EKG12_ITS ---
Test Reason : CP Blood Pressure : / mmHG Vent. Rate : 075 BPM Atrial Rate : 075 BPM P-R Int : 148 ms QRS Dur : 088 ms QT Int : 378 ms P-R-T Axes : 035 -52 051 degrees QTc Int : 422 ms Sinus rhythm with Premature supraventricular complexes Left axis deviation Inferior infarct , age undetermined Abnormal ECG When compared with ECG of 24-MAY-2020 00:41, MANUAL COMPARISON REQUIRED, DATA IS UNCONFIRMED Confirmed by DILLON DUBON, JUDITH ([id number]), society editor MISHA WILSON ([id number]) on 05/27/2020 11:00:50 AM Referred By: SUMEET Confirmed By:JUDITH CARRANZA MD
[2020-05-24] MEDS: 0.9% Normal Saline 1,000 ML 100 ML IV (12:50)
--- NOTE | 2020-05-24 13:12 | CL.I_ITS ---
Patient Name: NORBERTO REYES Study Date: 05/24/2020 Performing: Renata Fountain MD Ht: 75 inches 190.5 cm : 1975 Wt: 197.2 lbs 89.35 kg Age: 44 Gender: male BSA: 2.18 PROCEDURE(S) PERFORMED [id number]/COR/LV [id number] W OR WO PTCA, SINGLE CORONARY ARTERY CLINICAL PROFILE AND CO-MORBIDITIES Indications: ACS <= 24 hrs Heart Failure: None Stress/Imaging Stress/Image Study Performed: No CAD Presentations: Non-STEMI. Symptom onset Date/Time: 05/23/20 Time Not Available CONCLUSIONS CAD as described. LVEF is 35-40% with regional wall motion abnormalities as described. No signiifcant or MR. Successful PCI of mLCx with SILVA RECOMMENDATIONS ASA Indefinitley Brilinta for at least 12 months Consider PCI of RCA if patient has anginal symptoms despite medical therapy. DESCRIPTION OF PROCEDURE The patient arrived to the procedure lab. The risks and benefits of the procedure as well as a full d escription of our services here and lack of surgical backup were fully explained to the patient and/o r their significant other prior to the catheterization. The Timeout was completed, verifying the patti ect patient and procedure. The patient's procedural site was prepped and draped in the usual fashion. Local anesthetic was given subcutaneously to right radial region with Lidocaine 2%. Using a modified Seldinger technique, arterial access was obtained via the right radial artery, a 6Fr sheath was inse rted.. Left Coronary Artery selective angiography was performed in multiple views using a 5 Fr. JL3. 5 catheter. Right Coronary Artery selective angiography was then performed in multiple views using a 5 Fr. JR 4 catheter. Left Ventriculography was performed in HANSEN projection using a 5 Fr.. LV to AO pu llback pressures were then recordedThe images were reviewed and options discussed. A decision was then made to proceed with an Intervention, IVUS or other adjunct procedure. XB 3 CORDIS Guide catheter was inserted and engaged into the LCA. BMW Guide wire was advanced to the Circumflex. EMERGE 2.5 X 12 Balloon catheter was advanced across lesion in the circumflex, mid. P TCA balloon inflated at 8 atms for 12 secs. Angiogram performed post balloon dilatation. SYNERGY 3.00 X 16 Drug Eluting stent was advanced across the lesion in the circumflex, mid. Angiogram performed p ost stent deployment. NC EMERGE 3.5 X 8 Balloon catheter was inserted post stent. Angiogram performed post balloon dilatation. The arterial sheath was pulled and a TR Band was applied for hemostasis CORONARY ANGIOGRAPHY DOMINANCE: Right Dominant LEFT HEART ASSESSMENT Left Ventricular Ejection Fraction: by LV Gram 35-40 % Severe hypokinesis of the mid inferior and mid anterior wall. LEFT MAIN: Mild luminal irregularities LEFT ANTERIOR DESCENDING ARTERY: Mild luminal irregularities CIRCUMFLEX ARTERY: MID CIRC: 95 % Stenosis RIGHT CORONARY ARTERY: MID RCA: 60-70 % Stenosis INTERVENTION INFORMATION LESION SITE: Circumflex (Mid) Lesion Complexity: High/C, chronic total occlusion: No, lesion at bifurcation: No, thrombus present: No, lesion length: 12 mm, culprit lesion: Yes, Previously treated lesion: No Pre Stenosis: 95 % Pre intervention SARAH flow: 3 PROCEDURE: Drug Eluting Stent with pre and post dilatation BMS vs SILVA was discussed with patient in detail and patient preferred SILVA and promised to be complian t with DAPT. Post Stenosis: 0 % Post intervention SARAH flow: 3 Lesion Devices: Cardinal 6 Fr XB3.0 100cm Guide Catheter [employer] EMERGE MR 2.50x12 BALLOON [place] .014 [employer] [place] Straight 190cm Tomas Sci Synergy MR SILVA 3.00x16 Tomas Sci NC EMERGE MR 3.50x08 BALLOON COMPLICATIONS No Complications PROCEDURE MEDICATIONS Versed 1 mg IV Fentanyl 50 mcg IV Oxygen: 2 L/min via nasal cannula Brilinta 180 mg PO @ 05/24/2020 12:43:51 Heparin given IA 05/24/2020 12:05:51 Heparin 2000 unit(s) IV 05/24/2020 12:17:10 Verapamil 2.5mg, Ntg 100mcgs, 3000 units of Heparin given IA 05/24/2020 12:05:51 SUMMARY OF HEMODYNAMIC DATA Time AIR REST ECG 11:57:20 AO 99/76 (87) SA 12:08:30 LV 126/0, 14 12:13:09 LV 114/2, 13 12:13:15 LV 112/1, 11 12:13:44 LV 113/1, 11 12:13:50 LVp 117/1, 12 12:14:01 AOp 105/67 (85) 12:14:06 Signed By Renata Fountain MD On 05/24/2020 13:11:58 Renata Fountain MD
[2020-05-24 13:20] LABS: Hematocrit 43.8 % (40-54); Hemoglobin 14.6 g/dL (13.0-16.5); Mean Corp Hgb Conc 33.3 g/dL (32-36); Mean Corpuscular Hgb 28.5 pg (27.0-32.0); Mean Corpuscular Volume 85.4 fL (80-94); Mean Platelet Vol. 9.9 fl (6.2-12.0); Platelet Count 210 K/mm3 (150-450); RBC Distribution Width CV 11.9 % (11.6-14.6); RBC Distribution Width SD 36.6 fl (35.1-43.9); Red Blood Count 5.13 M/mm3 (4.6-6.2); White Blood Count 7.7 K/mm3 (4.4-11.0)
[2020-05-24] MEDS: Multivitamins,Therapeutic Tablet 1 TABLET PO (14:18)
[2020-05-24] MEDS: Acetaminophen 325 MG Tablet 650 MG PO (18:18)
[2020-05-24] MEDS: Metoprolol Tartrate 25 MG Tablet PO (22:03)
[2020-05-24] MEDS: TICAGRELOR 90 MG TABLET PO (22:03)
[2020-05-25 03:00] VITALS: PULSE 70
[2020-05-25 04:00] VITALS: BP 102/68; PULSE 75; RESP 18; TEMP 36.2; O2SAT 97
[2020-05-25] MEDS: oxyCODONE 5 MG Tablet PO ×2 (04:15→08:33)
[2020-05-25 06:13] LABS: Hematocrit 44.7 % (40-54); Hemoglobin 14.7 g/dL (13.0-16.5); Mean Corp Hgb Conc 32.9 g/dL (32-36); Mean Corpuscular Hgb 28.1 pg (27.0-32.0); Mean Corpuscular Volume 85.3 fL (80-94); Mean Platelet Vol. 10.1 fl (6.2-12.0); Platelet Count 207 K/mm3 (150-450); RBC Distribution Width CV 11.8 % (11.6-14.6); RBC Distribution Width SD 36.7 fl (35.1-43.9); Red Blood Count 5.24 M/mm3 (4.6-6.2); White Blood Count 8.1 K/mm3 (4.4-11.0)
[2020-05-25 06:27] LABS: ALB/GLOB Ratio 1.1 RATIO (0.9-2.4); AST(SGOT) 23 U/L (15-37); Alanine Aminotransfer ALT/SGPT 37 U/L (16-61); Albumin, Serum 3.5 g/dL (3.2-5.0); Alkaline Phosphatase 77 U/L (45-117); Anion Gap 7 (5-15); BUN 11 mg/dL (7-18); BUN/Creat Ratio 15.5 RATIO (10-20); Calcium,Total 8.5 mg/dL (8.5-10.1); Chloride 108 mmol/L (98-107); Creatinine, Serum 0.71 mg/dL (0.70-1.30); EST Glomerular Filtration Rate 127 mL/min (>60); Est Glom Filt Rate - Afr Amer 154 mL/min (>60); Estimated Creatinine Clearance 152.76 ml/min; Globulin 3.2 g/dL (2.2-4.2); Glucose 187 mg/dL (74-106); Protein, Total 6.7 g/dL (6.4-8.2); Sodium Level 139 mmol/L (136-145)
[2020-05-25 06:57] VITALS: PULSE 72
[2020-05-25 07:18] VITALS: O2SAT 98
[2020-05-25 07:31] LABS: Hemoglobin A1c 10.6 % (3.8-5.6)
[2020-05-25 08:24] VITALS: BP 125/56; PULSE 80; RESP 18; TEMP 36.7; O2SAT 96
[2020-05-25 08:26] VITALS: PULSE 80
[2020-05-25] MEDS: Metoprolol Tartrate 25 MG Tablet PO (08:26)
[2020-05-25] MEDS: Multivitamins,Therapeutic Tablet 1 TABLET PO (08:26)
[2020-05-25] MEDS: Aspirin E.C. 81 MG Tablet PO (08:26)
[2020-05-25] MEDS: TICAGRELOR 90 MG TABLET PO (08:26)
--- NOTE | 2020-05-25 08:41 | DCINST_ITS ---
You will use the following diet at home:: No restrictions Your food should be the consistency of: Regular Your liquids should be the consistency of: Regular/Thin Discharge Activity: Return to Normal Activity Weight Bearing Status: Full weight bearing Additional Instructions: No use of Ibuprofen, Aleve, or addtional aspirin. Use Tylenol or [place] for pain Allergies/Adverse Reactions: Allergies No Known Allergies Allergy (Verified 05/23/20 20:59) Medications to take at Discharge Multivitamin [Daily Value] 1 ea PO DAILY 05/23/20 Acetaminophen [Tylenol Tablet] 650 mg PO Q6H PRN PRN tab 05/25/20 Aspirin E.C. [Ecotrin] 81 mg PO DAILY@0800 tab 05/25/20 Atorvastatin Calcium [Lipitor] 80 mg PO QHS #30 tab 05/25/20 Hydrocodone Bitart/Apap 5-325 [[place] 5MG-325MG] 1 - 2 tab PO Q6H PRN PRN 7 Days #20 tab 05/25/20 Lisinopril [Zestril] 5 mg PO DAILY #30 tab 05/25/20 Metoprolol Tartrate [Lopressor (beta harriet)] 25 mg PO BID #60 tab 05/25/20 Nicotine [Nicoderm] 14 mg TD DAILY #30 patch 05/25/20 Ticagrelor [Brilinta] 90 mg PO BID #60 tab 05/25/20 The following prescriptions were given: Ticagrelor [Brilinta] 90 mg PO BID #60 tab Transmission Status: Received by MARY DHILLON [facility] Atorvastatin Calcium [Lipitor] 80 mg PO QHS #30 tab Transmission Status: Received by MARY DHILLON [facility] Metoprolol Tartrate [Lopressor (beta harriet)] 25 mg PO BID #60 tab Transmission Status: Received by MARY DHILLON [facility] Nicotine [Nicoderm] 14 mg TD DAILY #30 patch Transmission Status: [facility] Hydrocodone Bitart/Apap 5-325 [[place] 5MG-325MG] 1 - 2 tab PO Q6H PRN PRN 7 Days #20 tab PRN Reason: Pain Transmission Status: Received by MARY DHILLON [facility] Lisinopril [Zestril] 5 mg PO DAILY #30 tab Transmission Status: Received by MARY DHILLON [facility] Primary Care Physician: Care Physician,No Primary [Primary Care Provider] - Test Results: Test results from this visit will be discussed in further detail at your follow- up appointment, if applicable. Please Follow Up With: Carlos Ag MD When: in 3 weeks,
--- NOTE | 2020-05-25 08:50 | DS.PCM_ITS ---
Discharge Date and Diagnosis Date of Admission: 05/23/20 Date of Discharge: 05/25/20 - Primary Discharge Diagnosis Acute Problems: 1. NSTEMI, CAD s/p PCI of mLCx with SILVA 2. Tobacco dependence 3. Hyperlipidemia - Secondary Discharge Diagnosis Chronic Problems: Chronic Problems Smoker (Chronic) Hospital Course and Treatment Imaging Results: Diagnostic Data Chest X-Ray 05/23/20 21:20 IMPRESSION: Degenerative changes, as described above. No demonstrated acute cardiopulmonary process. Electronically Signed: Enmanuel Bruce DO at 21:32 EST Tel [phone], Service support , Chest CTA 05/23/20 21:40 IMPRESSION: Normal CTA chest examination, without a demonstrated pulmonary embolism or arterial dissection. Electronically Signed: Enmanuel Bruce DO at 23:04 EST Tel [phone], Service support , Operations: None Procedures: 2-D Echocardiogram, Cardiac catheterization Summary of Care Provided: The patient is a 44 year old M admitted 05/23/20 due to chest pain. 1. NSTEMI, CAD s/p PCI of mLCx with SILVA 05/24/20- Echo demonstrates an EF 45-50%. Continue aspirin, statin, brilinta, metoprolol, lisinopril. Follow-up with cardiology in 3 weeks. 2. Tobacco dependence- encouraged cessation. Nicotine replacement patch. 3. Hyperlipidemia-continue statin. General: Alert, Oriented x3, Cooperative HEENT: Atraumatic, PERRLA, EOMI, Normocephalic Neck: Supple, No JVD, Negative Carotid Bruits Lungs: Clear to auscultation, Normal air movement Cardiovascular: Regular rate, No murmurs Abdomen: Bowel Sounds Present, Soft, Non Tender, Non-Distended Extremities: No clubbing, No cyanosis, No edema, Capillary Refill Less than 3 Seconds Skin: No rashes, No breakdown Musculoskeletal: No Tenderness to Palpation of Joints or Extremities Neurological: Cranial nerves II-XII grossly intact, Neuro grossly intact Psych/Mental Status: Normal Affect, Appropriate Patient seen and examined prior to discharge. Physical assessment as noted above. Patient is stable for discharge with follow up recommendations as noted above. This patient was seen by MAYA Goins under the supervision of Dr. King. - Physical Exam Vitals/I&O's: Vital Signs Temp Pulse Resp BP Pulse Ox 98.0 F 80 18 125/56 H 96 05/25/20 08:24 05/25/20 08:26 05/25/20 08:24 05/25/20 08:24 05/25/20 08:24 Oxygen Delivery Method Room Air Weight: 195 lb 0.017 oz Body Mass Index (BMI) 25.0 Intake and Output for Last 24 Hours 05/23/20 05/24/20 05/25/20 23:59 23:59 23:59 Intake Total 5.07 / 5.07 3621.78 / 3741.78 240 / 240 Balance 5.07 / 5.07 3621.78 / 3741.78 240 / 240 Laboratory Results 05/24/20 13:05: WBC 7.7, RBC 5.13, Hgb 14.6, Hct 43.8, MCV 85.4, MCH 28.5, MCHC 33.3, RDW Std Deviation 36.6, RDW Coeff of Sebastián 11.9, Plt Count 210, MPV 9.9 05/25/20 05:55: Hemoglobin A1c 10.6 H 05/25/20 05:55: WBC 8.1, RBC 5.24, Hgb 14.7, Hct 44.7, MCV 85.3, MCH 28.1, MCHC 32.9, RDW Std Deviation 36.7, RDW Coeff of Sebastián 11.8, Plt Count 207, MPV 10.1 05/25/20 05:55: Sodium 139, Potassium 4.0, Chloride 108 H, Carbon Dioxide 24.0, Anion Gap 7, BUN 11, Creatinine 0.71, Estim Creat Clear Calc 152.76, Est GFR (MDRD) Af Amer 154, Est GFR (MDRD) Non-Af 127, BUN/Creatinine Ratio 15.5, Glucose 187 H, Calcium 8.5, Total Bilirubin 0.70, AST 23, ALT 37, Alkaline Phosphatase 77, Total Protein 6.7, Albumin 3.5, Globulin 3.2, Albumin/Globulin Ratio 1.1 Current Medications Acetaminophen (Acetaminophen 325 Mg Tablet) 650 mg PO Q6H PRN PRN PRN Reason: Pain Score 1-10/Temp > 100.7 F Last Admin: 05/24/20 18:18 Dose: 650 mg Documented by: Aspirin (Aspirin E.C. 81 Mg Tablet) 81 mg PO DAILY@0800 [facility] Last Admin: 05/25/20 08:26 Dose: 81 mg Documented by: Atorvastatin Calcium (Atorvastatin Calcium 80 Mg Tablet) 80 mg PO QHS [facility] Last Admin: 05/24/20 22:03 Dose: 80 mg Documented by: Atropine Sulfate (Atropine Sulfate 1 Mg/10 Ml Syringe) 0.5 mg IV UD PRN PRN Reason: HR <50 bpm Heparin Sodium (Beef Lung) (Heparin Lock 500 Unit/5 Ml In 10 Ml Syringe) 500 unit IV UD PRN PRN Reason: HEPARIN FLUSH Heparin Sodium (Porcine) (Heparin Injection (Vial) 5,000 Unit/Ml Vial) 0 unit IV UD PRN; Protocol PRN Reason: dose adjustment Last Admin: 05/24/20 07:08 Dose: 3,000 unit Documented by: Labetalol HCl (Labetalol (Prefilled) 20 Mg/4 Ml) 5 mg IV X1 PRN PRN Reason: SBP >160 when pulling sheath Stop: 05/26/20 12:41 Metoprolol Tartrate (Metoprolol Tartrate 25 Mg Tablet) 25 mg PO BID [facility] Last Admin: 05/25/20 08:26 Dose: 25 mg Documented by: Morphine Sulfate (Morphine 2 Mg/Ml Syringe) 2 mg IV Q3H PRN PRN PRN Reason: Pain Score 6-10 Last Admin: 05/24/20 22:13 Dose: 2 mg Documented by: [facility]ivitamins ([facility]ivit[facility],Therapeutic Tablet) [facility] Last Admin: 05/25/20 08:26 Dose: 1 tablet Documented by: Nicotine (Nicotine 14 Mg Patch) 14 mg TD DAILY [facility] Last Admin: 05/25/20 08:26 Dose: 14 mg Documented by: Nitroglycerin (Nitroglycerin (Inpatient Use) 0.4 Mg Tab.Subl) 0.4 mg SUBLINGUAL Q5M PRN PRN Reason: CARDIAC/CHEST PAIN Ondansetron HCl (Ondansetron 4 Mg/2 Ml Vial) 4 mg IV Q8H PRN PRN PRN Reason: NAUSEA/VOMITING Oxycodone HCl (Oxycodone 5 Mg Tablet) 5 mg PO Q4H PRN PRN PRN Reason: Pain Score 4-5 Last Admin: 05/25/20 08:33 Dose: 5 mg Documented by: Sodium Chloride (0.9% Saline Lock 10 Ml Syringe) 10 - 40 ml IV UD PRN PRN Reason: SALINE FLUSH Last Admin: 05/24/20 01:21 Dose: 10 ml Documented by: Sodium Chloride (0.9% Normal Saline 500 Ml Iv.Soln.) 500 ml IV BOLUS PRN PRN Reason: VASO-VAGAL PROTOCOL Ticagrelor (Ticagrelor 90 Mg Tablet) 90 mg PO BID RAYMOND Last Admin: 05/25/20 08:26 Dose: 90 mg Documented by: Discharge Diet: Low fat/ Low Cholesterol Discharge Activity: Return to Normal Activity Weight Bearing Status: Full weight bearing Home Medications: Medications to take at Discharge Multivitamin [Daily Value] 1 ea PO DAILY 05/23/20 Acetaminophen [Tylenol Tablet] 650 mg PO Q6H PRN PRN tab 05/25/20 Aspirin E.C. [Ecotrin] 81 mg PO DAILY@0800 tab 05/25/20 Atorvastatin Calcium [Lipitor] 80 mg PO QHS #30 tab 05/25/20 Hydrocodone Bitart/Apap 5-325 [[place] 5MG-325MG] 1 - 2 tab PO Q6H PRN PRN 7 Days #20 tab 05/25/20 Lisinopril [Zestril] 5 mg PO DAILY #30 tab 05/25/20 Metoprolol Tartrate [Lopressor (beta azalea)] 25 mg PO BID #60 tab 05/25/20 Nicotine [Nicoderm] 14 mg TD DAILY #30 patch 05/25/20 Ticagrelor [Brilinta] 90 mg PO BID #60 tab 05/25/20 Following Prescriptions Were Given to Patient: Ticagrelor [Brilinta] 90 mg PO BID #60 tab Transmission Status: Received by MARY VAUGHAN RD Atorvastatin Calcium [Lipitor] 80 mg PO QHS #30 tab Transmission Status: Received by MARY VAUGHAN RD Metoprolol Tartrate [Lopressor (beta azalea)] 25 mg PO BID #60 tab Transmission Status: Received by MARY VAUGHAN RD Nicotine [Nicoderm] 14 mg TD DAILY #30 patch Transmission Status: Received by MARY VAUGHAN RD Hydrocodone Bitart/Apap 5-325 [[place] 5MG-325MG] 1 - 2 tab PO Q6H PRN PRN 7 Days #20 tab PRN Reason: Pain Transmission Status: Received by MARY [id number] [facility] Lisinopril [Zestril] 5 mg PO DAILY #30 tab Transmission Status: Received by MARY [id number] [facility]LEX[facility] Primary Care Physician: Care Physician,No Primary [Primary Care Provider] - Please follow up with your Primary Care Physician in: 1 Week Please Follow Up With: Carlos Ag MD When: in 3 weeks, Disposition: Home Minutes spent on discharge:: 35 Patient Condition:: Stable Medical Necessity - Tobacco Use Smoking Status: Heavy Smoker (>10/day) Tobacco Use: Cigarettes Meaningful Use Info Meaningful Use Diagnoses (Choose all that apply): AMI - AMI/Post PCI/Angioplasty Aspirin given w/in 24hrs of arrival?: Yes ASA at discharge?: Yes Statins at discharge?: Yes Sal/ARB at discharge?: Yes Beta Azalea at discharge?: Yes Done w/ Acute ND measure.: Yes
--- NOTE | 2020-05-25 10:00 | EKG12_ITS ---
Test Reason : CP AMDMIT Blood Pressure : / mmHG Vent. Rate : 078 BPM Atrial Rate : 078 BPM P-R Int : 138 ms QRS Dur : 090 ms QT Int : 384 ms P-R-T Axes : 040 -37 046 degrees QTc Int : 437 ms Normal sinus rhythm Left axis deviation Abnormal ECG When compared with ECG of 26-APR-2017 04:46, No significant change was found Confirmed by DILLON DUBON, JUDITH ([id number]), managing editor MISHA WILSON ([id number]) on 05/27/2020 11:01:21 AM Referred By: DR FAY Confirmed By:JUDITH CARRANZA MD
--- NOTE | 2020-05-26 06:21 | CRPHASE1_ITS ---
Patient Communication Choice Letter Given to Patient:: Yes - Givent o patient prior to dicharge by RN Guide to Cardiac Rehab Given by ICU Staff Prior to Discharge: Yes Guide to Cardiac Rehab Mailed to Patient by CR Staff:: No - Patient received prior to discharge from RN Patient Contacted Post Discharge by CR Staff:: Yes - Discussed CR adn risk factors with patient via phone. PHII Cardiac Rehab Referral:: [facility] Cardiac Rehabilitation Info Cardiac Rehabilitation Program Information: Cardiac Rehabilitation is important for patients like you who are recovering from a heart problem. Cardiac rehabilitation programs are recognized as integral to the continued care of the patient with coronary heart disease. The cardiac rehabilitation program is designed to optimize a patient's physical, psychological, and social functioning. Health rn urgent care work in cardiac rehabilitation programs and assist you with getting the treatments you need to get stronger and healthier - like exercise, healthy eating habits, and medications. Cardiac rehabilitation has been show to help people with heart problems live longer and have better life enjoyment than people who do not go to cardiac rehabilitation. Please contact the Cardiac Rehabilitation Program at [facility] at in two weeks if you have not heard from them.
--- NOTE | 2020-05-26 06:24 | CRPH1.INST_ITS ---
General Education CAD and cardiac anatomy and function:: Patient communicates acknowledgment Explanation of diagnoses and procedures:: Patient communicates acknowledgment Sign/Symptoms of SD:: Patient communicates acknowledgment Antiplatelet therapy: Patient communicates acknowledgment Proper use of NTG-SL: Patient communicates acknowledgment Emergency procedures and activation of EMS: Patient communicates acknowledgment Compliance of all prescribed medications: Patient communicates acknowledgment Smoking Patient Nicotine/Smoking Risk Factors Are:: Cigarettes Recommendations Include:: Smoking cessation strategies/Smoking packet, Second- hand smoke recommendation, Participation in a smoking cessation program Nicotine/Smoking Response Code:: Patient communicates acknowledgment, Needs reinforcement Dyslipidemia Patient Dyslipidemia Risk Factors Are:: Total Cholesterol, Triglycerides, HDL, LDL Recommendations Include:: Lipid profile not available, Reviewed NCEP/ATP guidelines, Therapeutic Lifestyle Change dietary guidelines Dyslipidemia Response Code:: Patient communicates acknowledgment Hypertension Patient Hypertension Risk Factors Are:: No documented hx of HTN Recommendations Include:: Maintain BP <130/85, DASH dietary guidelines Hypertension:: Patient communicates acknowledgment
== END 2020-05-25 09:19 | disposition home or self-care (01) | DRG 247 ==
LOC: ED 21:58 → PCU 23:36
PROVIDERS: Specialist; Admitting Provider Student in an Organized Health Care Education/Training Program; Emergency Provider Emergency Medicine; Visit Provider Internal Medicine
DX: I21.4 Non-ST elevation (NSTEMI) myocardial infarction (principal); I25.110 Atherosclerotic heart disease of native coronary artery with unstable angina pectoris; E78.5 Hyperlipidemia, unspecified; F17.210 Nicotine dependence, cigarettes, uncomplicated
CPT/HCPCS: 36415; 71045; 71275; 80048; 80053; 80061; 83036; 83880; 84484; 85025; 85027; 85730; 92928; 93005; 93306; 93458; 99152; 99153; 99285; 99406; J7030; Q9957; Q9967; A4216; C1725; C1769; C1874; C1887; C1894; C8929; C9600; J1327; J2405

== ENCOUNTER 2022-06-12 23:50 | Inpatient (IN) | payer MEDICAID, SELFPAY ==
--- NOTE | 2022-06-12 00:20 | RAD_ITS ---
INDICATION: Chest pain EXAMINATION/TECHNIQUE: X-RAY - XR Chest 1 View COMPARISON: May 23, 2020 chest x-ray. FINDINGS: LINES/DEVICES: None. LUNGS: No focal consolidation or pleural effusion. No pneumothorax. MEDIASTINUM AND CARDIOVASCULAR STRUCTURES: Cardiac silhouette not enlarged. Central airways and mediastinal contour are unremarkable. BONES AND SOFT TISSUES: Stable degenerative changes of the thoracic spine. RAD/Chest 1 View (Portable) IMPRESSION: No acute cardiopulmonary disease. Electronically Signed: Carlos Ibrahim MD at 0:46 EST ,
[2022-06-12 23:51] VITALS: BP 159/100; PULSE 83; RESP 22; TEMP 36.4; O2SAT 99; BMI 31.7
[2022-06-12 23:57] VITALS: PULSE 76; RESP 15; O2SAT 97
--- NOTE | 2022-06-12 23:57 | EKG12_ITS ---
Test Reason : CP Blood Pressure : / mmHG Vent. Rate : 080 BPM Atrial Rate : 080 BPM P-R Int : 148 ms QRS Dur : 090 ms QT Int : 360 ms P-R-T Axes : 045 -53 082 degrees QTc Int : 415 ms Normal sinus rhythm Left anterior fascicular block Nonspecific T wave abnormality Abnormal ECG Confirmed by JAMES DUBON, KATIE ([id number]), telegraph editor MISHA WILSON ([id number]) on 06/14/2022 2:32:43 PM Referred By: LAVONNE Confirmed By:KATIE RAMIREZ MD
[2022-06-13] VITALS (49 sets, daily range): BP systolic 107–142; BP diastolic 63–84; PULSE 66–86; RESP 13–26; TEMP 36.6–37.2; O2SAT 94–99; BMI 31.6
--- NOTE | 2022-06-13 00:04 | ED.VIS.CHEST ---
HPI History of Present Illness Chief Complaint: Chest Pain Informant: patient Narrative Narrative: Patient presents with chest pain. Its been waxing and waning since Tuesday. It goes back and forth across the mid to lower sternum. When it is bad it does seem to radiate toward the left arm and the jaws. But it does not always radiate there. It sounds like he has gotten diaphoretic but no dyspnea and no nausea or vomiting. He does have a history of heart disease and had an CO with stenting about 2 years ago. He was on medicines for this for about 6 months but has stopped since. He had been on meds for blood pressure cholesterol Plavix. He has stopped all these. He does take baby aspirin though. He also still smokes but is trying to cut back. Mom and dad both had heart disease but it sounds like they started in their mid 60s. He cannot think of anything specific that makes his pain better or makes it come on. Patient was seen for this at a different hospital on Tuesday. He states they did blood work and an x-ray. He does not know what the results were. But they recommend he stay in the hospital over the weekend and have a stress test. He did not want to do that. He wanted to just come back on Tuesday for a stress test. Therefore he signed the papers and left. [facility] Medical History Atherosclerosis of coronary artery without angina pectoris NSTEMI (non-ST elevated myocardial infarction) Home Medications NK 06/12/22 [History Last Taken Unknown] Allergy/AdvReac Type Severity Reaction Status Date / Time No Known Allergies Allergy Verified 06/30/20 15:53 Family History Other Heart disease Surgical History History of coronary artery stent placement (05/24/20) Social History (Updated 06/13/22 @ 02:18 by Meredith Nolan) household members: family housing: house Smoking Status: Heavy Smoker (>10/day) ROS ROS ED Constitutional Constitutional ED: Reports sweats; Denies chills or fever(s) Eyes Eyes: Denies change in vision ENT ENT ED: Denies rhinorrhea or sore throat Cardiovascular Cardiovascular: Reports as per HPI Respiratory/Chest Respiratory/Chest: Denies cough or dyspnea Gastrointestinal Gastrointestinal: Denies nausea or vomiting Musculoskeletal Musculoskeletal: Denies back pain Integumentary Denies rash Neurologic Neurologic: Denies headache(s), paresthesias or other Endocrine Endocrinology: Denies polydipsia or polyuria Hematologic/Lymphatic Hematologic/Lymphatic: Denies easy bleeding or easy bruising Allergic/Immunologic Allergic/Immunologic ED: Denies urticaria EXAM Physical Exam Narrative Exam Narrative: Patient is awake alert no acute distress. HEENT shows no trauma or nasal discharge. Voice is normal. Neck shows no JVD or pain with motion. Lungs are clear bilaterally. Breathing is easy and unlabored and saturations are normal at 99% on room air. Heart is regular. I hear no murmur gallop rub or muffled tones. Peripheral pulses are equal x4. Abdomen is soft normal bowel sounds nondistended and no tenderness including no epigastric or right upper quadrant tenderness. shows no CVA or suprapubic tenderness Extremities show no cord edema tenderness asymmetry or distended veins. Skin shows no diaphoresis or rash Const Vital Signs: 06/12/22 23:51 06/12/22 23:55 06/12/22 23:57 Temperature 97.5 F L Temperature Source Temporal Pulse Rate 83 Respiratory Rate 22 H Respiratory Effort Normal Non-Labored Blood Pressure 159/100 H Blood Pressure Mean 119 Pulse Ox 99 Oxygen Delivery Method Room Air Room Air 06/13/22 01:00 06/13/22 01:29 06/12/22 23:57 Temperature 97.8 F Temperature Source Temporal Pulse Rate 75 74 76 Respiratory Rate 18 26 H 15 Respiratory Effort Blood Pressure 133/84 H 130/78 H Blood Pressure Mean 100 95 Pulse Ox 99 97 Oxygen Delivery Method Room Air 06/13/22 00:00 06/13/22 00:02 06/13/22 00:10 Temperature Temperature Source Pulse Rate 76 77 76 Respiratory Rate 13 15 15 Respiratory Effort Blood Pressure Blood Pressure Mean Pulse Ox 97 97 95 Oxygen Delivery Method 06/13/22 00:17 06/13/22 00:20 06/13/22 00:30 Temperature Temperature Source Pulse Rate 73 74 76 Respiratory Rate 16 17 17 Respiratory Effort Blood Pressure Blood Pressure Mean Pulse Ox 94 Oxygen Delivery Method 06/13/22 00:31 06/13/22 00:40 06/13/22 00:46 Temperature Temperature Source Pulse Rate 75 75 74 Respiratory Rate 16 17 15 Respiratory Effort Blood Pressure Blood Pressure Mean Pulse Ox 96 96 Oxygen Delivery Method 06/13/22 00:50 06/13/22 01:00 06/13/22 01:01 Temperature Temperature Source Pulse Rate 78 78 78 Respiratory Rate 19 H 13 14 Respiratory Effort Blood Pressure Blood Pressure Mean Pulse Ox 96 98 97 Oxygen Delivery Method 06/13/22 01:10 06/13/22 01:17 06/13/22 01:20 Temperature Temperature Source Pulse Rate 79 73 73 Respiratory Rate 15 16 17 Respiratory Effort Blood Pressure Blood Pressure Mean Pulse Ox 96 96 96 Oxygen Delivery Method 06/13/22 01:30 06/13/22 01:31 Temperature Temperature Source Pulse Rate 72 71 Respiratory Rate 15 16 Respiratory Effort Blood Pressure Blood Pressure Mean Pulse Ox 96 97 Oxygen Delivery Method Heart Score History: Moderately Suspicious ECG: Nonspecific Repolarization Age: >45 - <65 years Risk Factors: >/= 3 Risk Factors or History of CAD Troponin: </= Normal Limit Score: 5 MDM MDM MDM Narrative Medical decision making narrative: My independent interpretation of the patient's single view chest x-ray shows no acute process. No pneumothorax. Mediastinum looks normal. Cardiac silhouette looks normal. Final reading by radiology is no acute cardiopulmonary disease. CBC is normal. Electrolytes are normal other than a high glucose at 322. He had not stated about being diabetic before. But I looked on his prior testing and his sugar was up but not quite this high. This patient does have an elevated heart score. He has a concerning story with a new change in his EKG. Although his troponin is normal at 75 it is very high normal. His symptoms have been waxing and waning. He feels that he is getting a little bit of symptoms now. I will place him on some nitro ointment. I talked with the patient. I explained that he should come in. This is concerning. He needs at least a stress test and may need a repeat heart catheterization with his symptoms. He asked about coming back Tuesday for a stress test. I explained that the disadvantage of that is that he could not be watched in the hospital and make sure that this does not worsen on him. He is relatively high risk with a heart score of 5 and I do not recommend going home. At this point he agreed to come in. I am discussing the history work-up results with the hospitalist. Plan will be to place in PCU. Lab Data Attestation: I reviewed the patient's lab results. Labs: Laboratory Results - last 24 hr 06/12/22 06/12/22 23:55 23:55 WBC 8.5 RBC 5.06 Hgb 14.6 Hct 44.0 MCV 87.0 MCH 28.9 MCHC 33.2 RDW Std Deviation 38.7 RDW Coeff of Sebastián 12.1 Plt Count 235 MPV 10.7 Immature Gran % (Auto) 0.500 Neut % (Auto) 51.0 Lymph % (Auto) 38.9 Garza % (Auto) 7.0 Eos % (Auto) 2.1 Baso % (Auto) 0.5 Absolute Neuts (auto) 4.3 Absolute Lymphs (auto) 3.30 Nucleated RBC % 0 Sodium 137 Potassium 3.8 Chloride 102 Carbon Dioxide 28.0 Anion Gap 7 BUN 18 Creatinine 0.97 Estim Creat Clear Calc 109.46 Est GFR (MDRD) Af Amer 107 Est GFR (MDRD) Non-Af 88 BUN/Creatinine Ratio 18.6 Glucose 322 H Calcium 9.2 Troponin I High Sens 75 Radiography Diagnostic Testing: Clinical Impression(s) from Imaging Studies Chest X-Ray 06/12/22 00:20 IMPRESSION: No acute cardiopulmonary disease. Electronically Signed: Carlos Ibrahim MD at 0:46 EST , EKG Initial EKG: Comments: My independent interpretation of the patient's EKG done for chest pain shows a sinus rhythm with overall rate of 80. Activity. However, there is some mild. ST elevation anteriorly but this is less than half a millimeter. There is some hinting of T wave inversion. No inferior changes. NJ interval QRS duration and QTc are normal. Although these ST changes are not large, they are a different from his last EKG that I have from 05/25/2020. Discharge Plan Dx/Rx/DC Orders Clinical Impression: Chest pain, History of CAD (coronary artery disease), Acute hyperglycemia Disposition Disposition: Acute Care Hospital [facility] Discharge Date/Time: 06/13/22 02:03
[2022-06-13 00:32] LABS: Absolute Neutrophil Count 4.3 X10^3/uL (2.0-7.7); Anion Gap 7 (5-15); BUN 18 mg/dL (7-18); BUN/Creat Ratio 18.6 RATIO (10-20); Basophil# 0.04 X10^3/uL; Basophil% 0.5 % (0-1); Calcium,Total 9.2 mg/dL (8.5-10.1); Chloride 102 mmol/L (98-107); Creatinine, Serum 0.97 mg/dL (0.70-1.30); EST Glomerular Filtration Rate 88 mL/min (>60); Eosinophil# 0.18 X10^3/uL; Eosinophils% 2.1 % (0-5); Est Glom Filt Rate - Afr Amer 107 mL/min (>60); Estimated Creatinine Clearance 109.46 ml/min; Glucose 322 mg/dL (74-106); Hemoglobin 14.6 g/dL (13.0-16.5); Lymphocyte % 38.9 % (19-41); Mean Corp Hgb Conc 33.2 g/dL (32-36); Mean Corpuscular Hgb 28.9 pg (27.0-32.0); Mean Platelet Vol. 10.7 fl (6.2-12.0); Monocyte# 0.59 X10^3/uL; NRBC Flagged by Analyzer 0 % (0-5); Neutrophil # 4.33 X10^3/uL (2.7-7.7); Platelet Count 235 K/mm3 (150-450); Potassium 3.8 mmol/L (3.5-5.1); RBC Distribution Width CV 12.1 % (11.6-14.6); RBC Distribution Width SD 38.7 fl (35.1-43.9); Red Blood Count 5.06 M/mm3 (4.6-6.2); Sodium Level 137 mmol/L (136-145); Troponin-I HS (w/2H Reflex) 75 pg/mL (3.0-78.0); White Blood Count 8.5 K/mm3 (4.4-11.0)
--- NOTE | 2022-06-13 01:38 | EKG12_ITS ---
Test Reason : AM EKG Blood Pressure : / mmHG Vent. Rate : 067 BPM Atrial Rate : 067 BPM P-R Int : 142 ms QRS Dur : 100 ms QT Int : 442 ms P-R-T Axes : 032 -53 107 degrees QTc Int : 467 ms Normal sinus rhythm Left anterior fascicular block Cannot rule out Inferior infarct (masked by fascicular block?) , age undetermined ST & Marked T wave abnormality, consider anterolateral ischemia Abnormal ECG Confirmed by DILLON DUBON, JUDITH ([id number]), assignment desk editor MISHA WILSON ([id number]) on 06/15/2022 8:08:51 AM Referred By: THAI Confirmed By:JUDITH CARRANZA MD
--- NOTE | 2022-06-13 01:39 | HP.PCM.HOS_ITS ---
HPI - General General Date of Admission: 06/13/22 Date of Service: 06/13/22 Chief Complaint: Chest pain HPI Narrative NORBERTO REYES, is a 46 M with a significant history of tobacco abuse; diabetes mellitus; CAD status post stenting 2020 who presents to the emergency department with excruciating substernal chest pain that started about 2 days ago. He described chest pain as sharp. For the past 2 days he has had chest pain all the time. Occasionally his chest pain increases. He rated chest pain as 9-10 on a scale of 1-10. He denies any aggravating ameliorating factors to the pain. He denies any nausea or vomiting or chest pain. He reports diaphoresis with the pain. Patient went to an outside hospital ED and he was offered admission but because he would have to stay over the weekend he left AGAINST MEDICAL ADVICE. Patient takes aspirin on some days. [facility] Medical History Atherosclerosis of coronary artery without angina pectoris NSTEMI (non-ST elevated myocardial infarction) Home Medications NK 06/12/22 [History Last Taken Unknown] Allergy/AdvReac Type Severity Reaction Status Date / Time No Known Allergies Allergy Verified 06/30/20 15:53 Family History Other Heart disease Surgical History History of coronary artery stent placement (05/24/20) Social History Smoking Status: Heavy Smoker (>10/day) ROS ROS Narrative Pertinent positives and pertinent negatives as noted in HPI. All other systems were reviewed and are negative Vital Signs Vital Signs Vital Signs: 06/12/22 23:51 06/12/22 23:55 06/12/22 23:57 Temperature 97.5 F L Temperature Source Temporal Pulse Rate 83 Respiratory Rate 22 H Respiratory Effort Normal Non-Labored Blood Pressure 159/100 H Blood Pressure Mean 119 Pulse Ox 99 Oxygen Delivery Method Room Air Room Air 06/13/22 01:00 Temperature Temperature Source Pulse Rate 75 Respiratory Rate 18 Respiratory Effort Blood Pressure 133/84 H Blood Pressure Mean 100 Pulse Ox Oxygen Delivery Method Weight Weight: 112.2 kg Body Mass Index (BMI) 31.7 Physical Exam Narrative Physical exam: General: Well-nourished, well-developed. Head: Normocephalic, atraumatic, no tenderness Eyes: Vision is grossly intact. EOMI ENT, no trauma, moist mucous membranes, no rhinorrhea Neck: Nontender, No thyromegaly. CVS: Regular rate and rhythm. S1-S2 present. No murmur, gallop or rub. Respiratory : clear to auscultation bilaterally, chest wall nontender, no wheezing Abdomen: Soft, nontender, nondistended, normal bowel sounds, no masses : Deferred Back: Nontender, no CVA tenderness, no midline spinal tenderness, deformities, step-offs Extremities: Nontender full range of motion, no trauma Skin: Normal color, no trauma, abrasions Neuro: Alert, oriented, cranial nerves II through XII grossly intact. Psychiatry: Normal mood. Normal affect. Not depressed. Not anxious. Results Lab / Micro Data Result Diagrams: 06/12/22 23:55 06/12/22 23:55 Labs: Laboratory Results - last 24 hr 06/12/22 23:55: WBC 8.5, RBC 5.06, Hgb 14.6, Hct 44.0, MCV 87.0, MCH 28.9, MCHC 33.2, RDW Std Deviation 38.7, RDW Coeff of Sebastián 12.1, Plt Count 235, MPV 10.7, Immature Gran % (Auto) 0.500, Neut % (Auto) 51.0, Lymph % (Auto) 38.9, [place] % (Auto) 7.0, Eos % (Auto) 2.1, Baso % (Auto) 0.5, Absolute Neuts (auto) 4.3, Absolute Lymphs (auto) 3.30, Nucleated RBC % 0 06/12/22 23:55: Sodium 137, Potassium 3.8, Chloride 102, Carbon Dioxide 28.0, Anion Gap 7, BUN 18, Creatinine 0.97, Estim Creat Clear Calc 109.46, Est GFR (MDRD) Af Amer 107, Est GFR (MDRD) Non-Af 88, BUN/Creatinine Ratio 18.6, Glucose 322 H, Calcium 9.2, Troponin I High Sens 75 Radiology Impression Chest X-Ray 06/12/22 00:20 IMPRESSION: No acute cardiopulmonary disease. Electronically Signed: Carlos Ibrahim MD at 0:46 EST , Assessment & Plan Assessment/Plan (1) History of CAD (coronary artery disease): (2) Acute hyperglycemia: (3) Diabetes mellitus: (4) Chest pain: PLAN: Plan Chest pain Place on a monitored bed at progressive care unit. Actual CXR image was independently visualized. No acute cardiopulmonary process was noted. Actual EKG tracing was independently visualized. EKG tracing showed no ST elevations but with nonspecific T wave abnormalities which is different from ASA 81 mg p.o. daily ordered Nitroglycerin paste ordered at the emergency department and continued We will check lipid panel. Statin: High intensity statin ordered. Initial high-sensitivity troponin was 75, high normal. Serial cardiac enzymes ordered Stat EKG as needed for chest pain Stress test in the AM of 06/14/2022 if the cardiac enzymes are negative Diabetes mellitus with hyperglycemia Not on any home insulin. A1c ordered. Accu-Chek with correction scale insulin ordered. DVT prophylaxis Subcutaneous Lovenox ordered. Charges/Coding Visit Charges Inpatient E&M: 93416 Init Hosp L2
[2022-06-13] MEDS: Nitroglycerin Oint 1 INCH PACKET TD ×2 (01:51→06:51)
[2022-06-13] MEDS: Insulin Lispro 100 UNIT/ML INSULN.PEN 6 UNIT SC (01:52)
[2022-06-13 02:08] LABS: Reflex Troponin-HS? (from REC) Y
[2022-06-13 02:59] LABS: Troponin-I HS 80 pg/mL (3.0-78.0)
[2022-06-13 06:58] LABS: Absolute Lymphocyte Count 2.91 X10^3/uL (0.83-4.51); Absolute Neutrophil Count 3.4 X10^3/uL (2.0-7.7); Basophil# 0.03 X10^3/uL; Basophil% 0.4 % (0-1); Eosinophil# 0.18 X10^3/uL; Eosinophils% 2.5 % (0-5); Hematocrit 43.7 % (40-54); Lymphocyte # 2.91 X10^3/ul (0.83-4.51); Lymphocyte % 41.2 % (19-41); Mean Corp Hgb Conc 34.3 g/dL (32-36); Mean Corpuscular Hgb 29.6 pg (27.0-32.0); Mean Corpuscular Volume 86.2 fL (80-94); Mean Platelet Vol. 10.9 fl (6.2-12.0); Monocyte# 0.57 X10^3/uL; Monocyte% 8.1 % (0-10); NRBC Flagged by Analyzer 0 % (0-5); Neutrophil # 3.36 X10^3/uL (2.7-7.7); Neutrophil % 47.5 % (47-70); Platelet Count 224 K/mm3 (150-450); Red Blood Count 5.07 M/mm3 (4.6-6.2); White Blood Count 7.1 K/mm3 (4.4-11.0)
[2022-06-13 07:25] LABS: Troponin-I HS 97 pg/mL (3.0-78.0)
[2022-06-13 07:36] LABS: Anion Gap 10 (5-15); BUN 16 mg/dL (7-18); BUN/Creat Ratio 19.4 RATIO (10-20); Calcium,Total 8.9 mg/dL (8.5-10.1); Chloride 107 mmol/L (98-107); Cholesterol 188 mg/dL (200); Creatinine, Serum 0.82 mg/dL (0.70-1.30); EST Glomerular Filtration Rate 106 mL/min (>60); Est Glom Filt Rate - Afr Amer 128 mL/min (>60); Estimated Creatinine Clearance 129.48 ml/min; Glucose 207 mg/dL (74-106); High Density Lipoprotein 33 mg/dL; Potassium 3.8 mmol/L (3.5-5.1); Sodium Level 140 mmol/L (136-145); Triglycerides 118 mg/dL; Very Low Density Lipoprotein 24 mg/dL (5-40)
--- NOTE | 2022-06-13 07:49 | ECHOD_ITS ---
Reason For Study: CAD/ASHD Procedure This was a 2D Doppler, Color Flow transthoracic echocardiogram. The exam was of adequate technical quality. Exam performed portable in ICU/CCU. Left Ventricle Normal LV size. Segmental dysfunction with preserved ejection fraction (see wall motion). The estimated ejection fraction is 55 %. No evidence for diastolic dysfunction. Mid-inferoseptal : Hypokinetic. Mid-anteroseptal : Hypokinetic. Septal [place] : Hypokinetic. Right Ventricle Normal RV size. Normal systolic function. Atria Normal left atrium. Normal right atrium. No doppler evidence for ASD. Mitral Valve There is no mitral annular calcification. Normal mitral valve. Trivial mitral valve insufficiency. Tricuspid Valve Normal tricuspid valve. Trivial tricuspid valve insufficiency. Unable to estimate RV systolic pressure due to insufficient tricuspid regurgitant envelope. Aortic Valve Trisinus/trileaflet aortic valve. Normal aortic valve. Pulmonic Valve The pulmonic valve is not well visualized. Trivial pulmonic valve insufficiency. Great Vessels The aortic valve is not well visualized. Pericardium/Pleural No pericardial effusion. MMode/2D Measurements & Calculations LVIDd: 4.7 cm IVSd: 1.3 cm LAV(MOD-sp4): 64.4 ml LVIDs: 3.4 cm LVPWd: 1.1 cm FS: 27.9 % LVAd ap4: 35.7 cm2 SV(MOD-sp4): 59.1 ml SV(sp4-el): 63.1 ml LVLd ap4: 8.8 cm EDV(MOD-sp4): 117.5 ml EDV(sp4-el): 123.6 ml LVAs ap4: 22.5 cm2 LVLs ap4: 7.1 cm ESV(MOD-sp4): 58.4 ml ESV(sp4-el): 60.5 ml EF(MOD-sp4): 50.3 % EF(sp4-el): 51.1 % LA A4 area: 21.8 cm2 RA A4 area: 20.2 cm2 Time Measurements MV dec time: 0.27 sec Doppler Measurements & Calculations MV E max sammy: 56.1 cm/sec Lat Peak E' Sammy: 11.8 cm/sec Med Peak E' Sammy: 11.8 cm/sec MV A max sammy: 59.0 cm/sec E/E' lat: 4.8 E/E' med: 4.7 MV E/A: 0.95 MV V2 max: 78.0 cm/sec Ao V2 max: 117.2 cm/sec MV max P.4 mmHg MV dec slope: 222.1 cm/sec2 Ao max P.5 mmHg MV V2 mean: 47.8 cm/sec Ao V2 mean: 82.4 cm/sec MV mean P.0 mmHg Ao mean P.1 mmHg MV V2 VTI: 21.3 cm Ao V2 VTI: 24.9 cm AV (velocity ratio): 0.98 LV V1 max: 120.9 cm/sec PA V2 max: 80.9 cm/sec LV V1 max P.9 mmHg PA V2 mean: 62.2 cm/sec LV V1 mean P.5 mmHg LV V1 mean: 89.0 cm/sec LV V1 VTI: 24.5 cm ECHO/Echo Complete Interpretation Summary Segmental dysfunction with preserved ejection fraction (see wall motion). The estimated ejection fraction is 55 %. Trivial mitral valve insufficiency. Trivial tricuspid valve insufficiency. Trivial pulmonic valve insufficiency. Unable to estimate RV systolic pressure due to insufficient tricuspid regurgita nt envelope. No evidence for diastolic dysfunction. Ordering Physician: Baljinder Faulkner Referring Physician: PANKAJ PCP Performed By: Ricarda Diaz RCS
[2022-06-13] MEDS: Insulin Lispro 100 UNIT/ML INSULN.PEN SC ×4 (07:56→21:28)
[2022-06-13] MEDS: Aspirin E.C. 81 MG Tablet PO (07:56)
[2022-06-13 08:30] LABS: Bedside Glucose 245 mg/dL (74-106)
--- NOTE | 2022-06-13 08:54 | PCM.HOSP.N ---
Hospitalist Note Patient was seen and examined today, his troponin was elevated slightly, I talked to him briefly, he stopped all his cardiac medications sometime ago-he was not able to give me a reason why. I talked with Dr. Ag about his case, it appears it may be more prudent to proceed with a cardiac cath rather than a stress test tomorrow, I ordered an echo on the patient in Dr. Ag will see the patient today and discuss catheterization tomorrow.
--- NOTE | 2022-06-13 11:15 | EKG12_ITS ---
Test Reason : CP Blood Pressure : / mmHG Vent. Rate : 075 BPM Atrial Rate : 075 BPM P-R Int : 138 ms QRS Dur : 090 ms QT Int : 392 ms P-R-T Axes : 037 -50 104 degrees QTc Int : 437 ms Normal sinus rhythm Left anterior fascicular block Cannot rule out Inferior infarct (masked by fascicular block?) , age undetermined T wave abnormality, consider anterolateral ischemia Abnormal ECG When compared with ECG of 12-JUN-2022 23:49, MANUAL COMPARISON REQUIRED, DATA IS UNCONFIRMED Confirmed by DILLON DUBON, JUDITH ([id number]), society editor MISHA WILSON ([id number]) on 06/15/2022 8:08:59 AM Referred By: Confirmed By:JUDITH CARRANZA MD
[2022-06-13] MEDS: Insulin Glargine-YFGN 100 UNIT/ML Pen 15 UNIT SC (11:31)
[2022-06-13 11:46] LABS: Bedside Glucose 265 mg/dL (74-106)
--- NOTE | 2022-06-13 11:50 | PCM.CONS.C ---
Assessment & Plan Assessment/Plan (1) Unstable angina: PLAN: The patient has had waxing and waning symptoms compatible with angina pectoris which have occurred at rest being compatible with unstable angina pectoris. At the present time the patient has been evaluated. His cardiac enzymes have increased. His ECG has demonstrated T wave abnormalities compatible with myocardial ischemia. His previous noninvasive and invasive studies have been reviewed. At the present time he should continue medical therapy. This would include agents such as aspirin, nitrates, the addition of beta-blockers, lipid-lowering agents, and anticoagulant agents all as deemed appropriate. He can be further evaluated with respect to his left ventricle with a transthoracic echocardiogram. However, it appears that he is in need of further evaluation of his coronary anatomy with diagnostic cardiac catheterization. The procedure and risk were discussed with him. He was agreeable to this approach. (2) NSTEMI (non-ST elevated myocardial infarction): PLAN: The patient has objective findings compatible with an acute non-ST segment elevation CO. He will continue to be monitored. He will continue medical therapy such as aspirin 81 mg p.o. daily, nitrates-topically or intravenously as needed, the initiation of beta-harriet such as metoprolol tartrate 25 mg p.o. twice daily, the addition of lipid-lowering agents such as atorvastatin at 40 mg p.o. daily, and anticoagulants. With respect to anticoagulants if he has not received the aforementioned subcutaneous enoxaparin/Lovenox he could also be placed on IV heparin. He will continue both noninvasive and invasive valuation as noted. (3) CAD (coronary artery disease): PLAN: The patient has a history of premature CAD. He has undergone previous evaluation in 2020 as noted. He admits he stopped his medications and did not continue with outpatient follow-up. He is now undergoing evaluation for unstable angina and a recurrent acute non-ST segment elevation CO. He will continue evaluation and care as noted above (4) History of coronary artery stent placement: PLAN: The patient has previously undergone evaluation with diagnostic cardiac catheterization and PCI. He received PCI to the LCx system with a Synergy 3.0 x 16 mm drug-eluting stent. In his report it was recommended that he be considered for PCI of the RCA system if he had recurrent concerning symptoms despite ongoing medical management. Addt'l Comments The patient's case has been discussed and reviewed with the patient as well as Dr. Faulkner of the [facility] hospital staff. Comment: Time spent in evaluation of the patient, examination, review of medical records, review of previous imaging studies, review of radiologic studies, questions and answers, discussion with medical staff, placing orders, documentation, etc.: 60 minutes HPI Consult Data Date of Consult: 06/13/22 HPI Narrative HPI Narrative: NORBERTO REYES, is a 46 year old white male who presents for cardiovascular consultation based upon concerns of symptoms compatible with unstable angina and objective findings compatible with an acute non-ST segment elevation CO superimposed upon history of underlying premature CAD status post previous PCI (2020). The patient underwent evaluation in May [address] Fountain of interventional cardiology. At that time he underwent evaluation for concerns of a non-ST segment elevation CO. This included a transthoracic echocardiogram and a diagnostic cardiac catheterization. This led to a PCI procedure. The results of these diagnostic/therapeutic studies are noted below. It appears the patient had 1 outpatient cardiovascular visit in June 2020. Since that time he has not presented for outpatient evaluation or care. He states over time he discontinued his medications himself. He states that 2 days ago he presented to his local hospital in [place], [place] for concerns of chest discomfort. He states he was in the emergency department. He waited for several hours without any obvious results. He states he signed himself out. He now presented to [facility] for recurrent chest discomfort. He describes chest discomfort in the center of his chest is sharp but at other times a nonsharp discomfort that may radiate to his left pectoral area. He has denied nausea, emesis, or dyspnea. He does admit to an element of diaphoresis. He denied any obvious palpitations, near-syncope, or syncope. In the [facility] emergency department he was evaluated with high-sensitivity troponin I levels.? His initial level was 75. Since that time his level has increased to 97. His initial ECG demonstrated sinus rhythm with left axis deviation with a left anterior fascicular block pattern and nonspecific T wave. A subsequent ECG demonstrated sinus rhythm with left axis deviation and a T wave abnormality potentially compatible with myocardial ischemia in the anterior distribution. His chest x-ray was reviewed. It was a portable chest x-ray. It did not appear to suggest any acute cardiopulmonary disease process. At the time of consultation he stated that he was resting comfortably. He was not complaining of ongoing chest discomfort or difficulty breathing. He did not have any other new complaints. He stated he felt that he was going to remain in the hospital pending further evaluation and care. [facility] Medical History (Updated 06/13/22 @ 12:[address] Carlos Ag MD) Atherosclerosis of coronary artery without angina pectoris NSTEMI (non-ST elevated myocardial infarction) Home Medications NK 06/12/22 [History Last Taken Unknown] Allergy/AdvReac Type Severity Reaction Status Date / Time No Known Allergies Allergy Verified 06/30/20 15:53 Family History Other Heart disease Surgical History History of coronary artery stent placement (05/24/20) Social History (Updated 06/13/22 @ 02:18 by Meredith Nolan) household members: family housing: house Smoking Status: Heavy Smoker (>10/day) ROS Constitutional Constitutional: Reports as per HPI Eyes Eyes: Reports as per HPI ENT HEENT: Reports as per HPI Cardiovascular Cardiovascular: Reports chest pain, chest pain at rest and diaphoresis Respiratory/Chest Respiratory/Chest: Reports as per HPI Gastrointestinal Gastrointestinal: Reports as per HPI Genitourinary Genitourinary: Reports as per HPI Musculoskeletal Musculoskeletal: Reports as per HPI Integumentary Integumentary: Reports as per HPI Neurologic Neurologic: Reports as per HPI Physical Exam Const alert, oriented x3, no apparent distress and healthy appearing Orientation / Consciousness: awake HEENT normocephalic, head/scalp atraumatic and hearing grossly normal bilaterally Eyes PERRL, EOMs intact bilaterally, conjunctivae normal and no scleral icterus Neck full ROM, supple and no JVD Carotids: normal carotid upstroke Chest inspection of chest normal Resp normal respiratory effort and clear to auscultation bilaterally Cardio regular rate, regular rhythm, S1 normal heart sound and S2 normal heart sound GI normal to inspection, nondistended, normoactive bowel sounds Extremity no pedal edema Skin no rashes or lesions noted Psych mental status grossly normal Risk Stratification Risk Stratification Applicable: Yes Age >/= 65: No >/= 3 CAD Risk Factors (HTN, HLD, DM, family hx of CAD, or current smoker): No Aspirin Use in the Past 7 Days: No Severe Angina (>/= episodes in 24 hours): Yes EKG ST Changes >/= 0.5mm: No Positive Cardiac Marker: Yes SARAH Risk Stratification Score: 2 SARAH % Risk: 8% Risk Procedure Criteria Type of Procedure Procedure Type: Elective Elective Risks - COVID COVID Risk Discussion: The surgeon/proceduralist and patient have discussed in detail the risk of exposure to and/or potential harm posed by the COVID-19 virus with having a surgery/procedure at this time versus the risk of delaying the surgery/procedure. It is not possible to know either the risk of delaying the surgery or procedure or chance of getting an infection with perfect accuracy, but a joint decision was made between the patient and the surgeon/proceduralist to proceed at this time with the scheduled surgery/procedure as indicated on the consent form. Objective Data Vital Signs: Vital Signs Temp Pulse Resp BP Pulse Ox O2 Del Method 98.9 F 74 16 126/70 H 95 Room Air 06/13/22 11:14 06/13/22 11:14 06/13/22 11:14 06/13/22 11:14 06/13/22 11:14 06/13/22 11:14 Oxygen Delivery Method Room Air Weight: 246 lb 7.629 oz Body Mass Index (BMI) 31.6 Lab / Micro Data Result Diagrams: 06/13/22 05:46 06/13/22 05:46 Labs: Laboratory Results - last 24 hr 06/12/22 23:55: WBC 8.5, RBC 5.06, Hgb 14.6, Hct 44.0, MCV 87.0, MCH 28.9, MCHC 33.2, RDW Std Deviation 38.7, RDW Coeff of Sebastián 12.1, Plt Count 235, MPV 10.7, Immature Gran % (Auto) 0.500, Neut % (Auto) 51.0, Lymph % (Auto) 38.9, Mathews % (Auto) 7.0, Eos % (Auto) 2.1, Baso % (Auto) 0.5, Absolute Neuts (auto) 4.3, Absolute Lymphs (auto) 3.30, Nucleated RBC % 0 06/12/22 23:55: Sodium 137, Potassium 3.8, Chloride 102, Carbon Dioxide 28.0, Anion Gap 7, BUN 18, Creatinine 0.97, Estim Creat Clear Calc 109.46, Est GFR (MDRD) Af Amer 107, Est GFR (MDRD) Non-Af 88, BUN/Creatinine Ratio 18.6, Glucose 322 H, Calcium 9.2, Troponin I High Sens 75 06/13/22 02:23: Troponin I High Sens 80 H 06/13/22 05:46: WBC 7.1, RBC 5.07, Hgb 15.0, Hct 43.7, MCV 86.2, MCH 29.6, MCHC 34.3, RDW Std Deviation 38.0, RDW Coeff of Sebastián 12.0, Plt Count 224, MPV 10.9, Immature Gran % (Auto) 0.300, Neut % (Auto) 47.5, Lymph % (Auto) 41.2 H, Mathews % (Auto) 8.1, Eos % (Auto) 2.5, Baso % (Auto) 0.4, Absolute Neuts (auto) 3.4, Absolute Lymphs (auto) 2.91, Nucleated RBC % 0 06/13/22 05:46: Sodium 140, Potassium 3.8, Chloride 107, Carbon Dioxide 23.0, Anion Gap 10, BUN 16, Creatinine 0.82, Estim Creat Clear Calc 129.48, Est GFR (MDRD) Af Amer 128, Est GFR (MDRD) Non-Af 106, BUN/Creatinine Ratio 19.4, Glucose 207 H, Calcium 8.9, Triglycerides 118, Cholesterol 188, LDL Cholesterol 131 H, VLDL Cholesterol 24, HDL Cholesterol 33 L 06/13/22 05:46: Hemoglobin A1c 10.0 H 06/13/22 05:46: Troponin I High Sens 97 H 06/13/22 07:53: POC Glucose 245 H 06/13/22 11:26: POC Glucose 265 H Cardiology Labs/Tests 06/12/22 23:55: WBC 8.5, RBC 5.06, Hgb 14.6, Hct 44.0, MCV 87.0, MCH 28.9, MCHC 33.2, Plt Count 235, MPV 10.7, Immature Gran % (Auto) 0.500, Neut % (Auto) 51.0, Lymph % (Auto) 38.9, Mathews % (Auto) 7.0, Eos % (Auto) 2.1, Baso % (Auto) 0.5, Absolute Neuts (auto) 4.3, Nucleated RBC % 0 06/12/22 23:55: Sodium 137, Potassium 3.8, Chloride 102, Carbon Dioxide 28.0, Anion Gap 7, BUN 18, Creatinine 0.97, Est GFR (MDRD) Af Amer 107, Est GFR (MDRD) Non-Af 88, BUN/Creatinine Ratio 18.6, Glucose 322 H, Calcium 9.2 06/13/22 05:46: WBC 7.1, RBC 5.07, Hgb 15.0, Hct 43.7, MCV 86.2, MCH 29.6, MCHC 34.3, Plt Count 224, MPV 10.9, Immature Gran % (Auto) 0.300, Neut % (Auto) 47.5, Lymph % (Auto) 41.2 H, Mathews % (Auto) 8.1, Eos % (Auto) 2.5, Baso % (Auto) 0.4, Absolute Neuts (auto) 3.4, Nucleated RBC % 0 06/13/22 05:46: Sodium 140, Potassium 3.8, Chloride 107, Carbon Dioxide 23.0, Anion Gap 10, BUN 16, Creatinine 0.82, Est GFR (MDRD) Af Amer 128, Est GFR (MDRD) Non-Af 106, BUN/Creatinine Ratio 19.4, Glucose 207 H, Calcium 8.9, Triglycerides 118, Cholesterol 188, LDL Cholesterol 131 H, VLDL Cholesterol 24, HDL Cholesterol 33 L 06/13/22 05:46: Hemoglobin A1c 10.0 H Rhythm: Sinus rhythm EKG: As noted above ECHO: 05-24-2020 Interpretation Summary The estimated ejection fraction is 45-50 %. No evidence for diastolic dysfunction. mild hypokinesis of the posterolateral wall Stress Test Report Date: 04/26/2017 Procedure: Exercise tolerance test/nuclear imaging study Indications: Chest pain Consent: Per the patient Procedure: The patient exercised on a Tanner protocol for 7 minutes completing stage II and 1 minute of stage III achieving a peak heart rate of 157 bpm (88% predicted maximal heart rate) with a peak blood pressure 168/68 mmHg and a peak MET capacity of approximately 8 MET's. The baseline ECG demonstrated normal sinus rhythm.? The peak exercise ECG demonstrated somatic/motion artifact with no obvious ECG changes. There were no cardiac dysrhythmias pretest, during exercise, or recovery. The functional capacity was considered average. The patient had chronic shoulder discomfort pretest, during exercise, and recovery. The examination was discontinued secondary to dyspnea and fatigue. Impression: 1 technically adequate (percent predicted maximal heart rate greater than 85%) exercise tolerance test 2.? Peak exercise ECG was somatic/motion artifact with no obvious ECG changes 3.? Nuclear images pending Myocardial perfusion imaging study: Technique: The patient was injected with 14.6 mCi of technetium 99m Cardiolite and subsequently rest SPECT Cardiolite nuclear imaging was obtained in the horizontal long, vertical long, and short axis views. The patient exercised on a Tanner protocol for 7 minutes completing stage II and 1 minute of stage III achieving a peak heart rate of 157 bpm (88% predicted maximal heart rate) with a peak blood pressure 168/68 mmHg and a peak MET capacity of approximately 8 MET's.? The patient was injected with 44.7 mCi of technetium 99m Cardiolite and subsequently stress SPECT Cardiolite nuclear imaging was obtained in the horizontal long, vertical long, and short axis views.? A gated Cardiolite study at peak stress was obtained. Interpretation: Rest and stress SPECT Cardiolite nuclear imaging status post realignment, normalization, and pre-attenuation correction (no attenuation corrected images obtained) demonstrates subtle diminished tracer uptake in portions of the basal inferior septal and basal inferior segments and a small area of subtle diminished tracer uptake in the apical segments without significant change between rest and stress.? There are similar type findings on the resting and stress polar map images.? There is end systolic thickening and brightening.? The gated Cardiolite study demonstrates myocardial thickening and inward wall motion.? The reported LVEF is 56%. Impression: 1.? Rest and stress SPECT cardio light nuclear imaging demonstrate myocardial perfusion changes appearing compatible with the effects of soft tissue attenuation/artifact and physiologic apical thinning with no myocardial perfusion changes consider diagnostic for associated stress-induced myocardial ischemia or previous myocardial injury/infarction. 2.? The gated Cardiolite study reports an LVEF of 56%. Cardiac Cath/PCI: 05-24-2020 CONCLUSIONS CAD as described. LVEF is 35-40% with regional wall motion abnormalities as described. No signiifcant or MR. Successful PCI of mLCx with SILVA RECOMMENDATIONS ASA Indefinitley Brilinta for at least 12 months Consider PCI of RCA if patient has anginal symptoms despite medical therapy. DESCRIPTION OF? PROCEDURE The patient arrived to the procedure lab. The risks and benefits of the procedure as well as a full description of our services here and lack of surgical backup were fully explained to the patient and/or their significant other prior to the catheterization. The Timeout was completed, verifying the correct patient and procedure. The patient's procedural site was prepped and draped in the usual fashion. Local anesthetic was given subcutaneously to right radial region with Lidocaine 2%. Using a modified Seldinger technique, arterial access was obtained via the right radial artery, a 6Fr sheath was inserted..? Left Coronary Artery selective angiography was performed in multiple views using a 5 Fr. JL3.5 catheter. Right Coronary Artery selective angiography was then performed in multiple views using a 5 Fr. JR 4 catheter. Left Ventriculography was performed in HANSEN projection using a 5 Fr.. LV to AO pullback pressures were then recordedThe images were reviewed and options discussed. A decision was then made to proceed with an Intervention, IVUS or other adjunct procedure. ? ? XB 3 CORDIS Guide catheter was inserted and engaged into the LCA. BMW Guide wire was advanced to the Circumflex. EMERGE 2.5 X 12 Balloon catheter was advanced across lesion in the circumflex, mid. PTCA balloon inflated at 8 atms for 12 secs. Angiogram performed post balloon dilatation. SYNERGY 3.00 X 16 Drug Eluting stent was advanced across the lesion in the circumflex, mid. Angiogram performed post stent deployment. NC EMERGE 3.5 X 8 Balloon catheter was inserted post stent. Angiogram performed post balloon dilatation. ? The arterial sheath was pulled and a TR Band was applied for hemostasis CORONARY ANGIOGRAPHY DOMINANCE:? Right Dominant LEFT HEART ASSESSMENT Left Ventricular Ejection Fraction: by LV Gram 35-40 % Severe hypokinesis of the mid inferior and mid anterior wall. LEFT MAIN: ?Mild luminal irregularities LEFT ANTERIOR DESCENDING ARTERY: Mild luminal irregularities CIRCUMFLEX ARTERY: MID CIRC: 95 % Stenosis RIGHT CORONARY ARTERY: MID RCA: 60-70 % Stenosis INTERVENTION INFORMATION LESION SITE: Circumflex (Mid) Lesion Complexity: High/C, chronic total occlusion: No, lesion at bifurcation: No, thrombus present: No, lesion length: 12 mm, culprit lesion: Yes, Previously treated lesion: No ?Pre Stenosis: 95 % Pre intervention SARAH flow: 3 PROCEDURE: Drug Eluting Stent with pre and post dilatation BMS vs SILVA was discussed with patient in detail and patient preferred SILVA and promised to be compliant with DAPT. Post Stenosis: 0 %? Post intervention SARAH flow: 3 Lesion Devices: Cardinal 6 Fr XB3.0 100cm Guide Catheter Tomas Sci EMERGE MR 2.50x12 BALLOON Michaud .014 [employer] [place] Straight 190cm Tomas Sci Synergy MR SILVA 3.00x16 Tomas Sci NC EMERGE MR 3.50x08 BALLOON COMPLICATIONS No Complications PROCEDURE MEDICATIONS Versed 1 mg IV Fentanyl 50 mcg IV Oxygen: 2 L/min via nasal cannula Brilinta 180 mg PO @ 05/24/2020 12:43:51 Heparin given IA 05/24/2020 12:05:51 Heparin 2000 unit(s) IV 05/24/2020 12:17:10 Verapamil 2.5mg, Ntg 100mcgs, 3000 units of Heparin given IA 05/24/2020 12:05:51 SUMMARY OF HEMODYNAMIC DATA ? Time ?? ? AIR REST ?? ? ECG? ? ? 11:57:20 ?? ? AO? 99/76? (87)? SA? ? 12:08:30 ?? ? LV? 126/0,? 14? ? ? 12:13:09 ?? ? LV? 114/2,? 13? ? ? 12:13:15 ?? ? LV? 112/1,? 11? ? ? 12:13:44 ?? ? LV? 113/1,? 11? ? ? 12:13:50 ?? ? LVp? 117/1,? 12? ? ? 12:14:01 ?? ? AOp? 105/67? (85)? ? ? 12:14:06 Signed By Renata Fountain? On 05/24/2020 13:11:58 Renata Fountain? Radiography Diagnostic Testing: Radiology Impression Chest X-Ray 06/12/22 00:20 IMPRESSION: No acute cardiopulmonary disease. Electronically Signed: Carlos Ibrahim MD at 0:46 EST ,
[2022-06-13] MEDS: Morphine 4 MG/ML Syringe IV (12:15)
[2022-06-13] MEDS: Metoprolol Tartrate 25 MG Tablet PO ×2 (12:19→21:27)
[2022-06-13 13:04] LABS: Absolute Lymphocyte Count 2.07 X10^3/uL (0.83-4.51); Absolute Neutrophil Count 6.2 X10^3/uL (2.0-7.7); Basophil# 0.04 X10^3/uL; Basophil% 0.4 % (0-1); Eosinophil# 0.17 X10^3/uL; Eosinophils% 1.9 % (0-5); Hematocrit 42.2 % (40-54); Hemoglobin 14.6 g/dL (13.0-16.5); Lymphocyte # 2.07 X10^3/ul (0.83-4.51); Lymphocyte % 22.7 % (19-41); Mean Corp Hgb Conc 34.6 g/dL (32-36); Mean Corpuscular Hgb 29.2 pg (27.0-32.0); Mean Corpuscular Volume 84.4 fL (80-94); Mean Platelet Vol. 9.8 fl (6.2-12.0); Monocyte# 0.58 X10^3/uL; Monocyte% 6.4 % (0-10); NRBC Flagged by Analyzer 0 % (0-5); Neutrophil # 6.24 X10^3/uL (2.7-7.7); Neutrophil % 68.4 % (47-70); Platelet Count 220 K/mm3 (150-450); RBC Distribution Width CV 12.1 % (11.6-14.6); RBC Distribution Width SD 36.7 fl (35.1-43.9); White Blood Count 9.1 K/mm3 (4.4-11.0)
[2022-06-13 13:15] LABS: Prothrombin Time (Protime)PT. 12.9 SECONDS (11.7-14.9)
[2022-06-13] MEDS: Nitroglycerin Infusion 250 ML 3 MG CONT INF (13:38)
[2022-06-13] MEDS: HEPARIN/D5w 25,000 UNITS 25,000 UNITS/250 ML IV.SOLN. 15 UNITS CONT INF (13:44)
[2022-06-13] MEDS: Heparin Injection (Vial) 5,000 UNIT/ML VIAL 8000 UNIT IV (13:47)
[2022-06-13 16:55] LABS: Bedside Glucose 237 mg/dL (74-106)
[2022-06-13 17:20] LABS: Troponin-I HS 118 pg/mL (3.0-78.0)
[2022-06-13] MEDS: Atorvastatin Calcium 80 MG Tablet PO (21:27)
[2022-06-13 21:36] LABS: Bedside Glucose 219 mg/dL (74-106)
[2022-06-13 21:52] LABS: Partial Thromboplast Time 37.2 Seconds (24.1-36.2)
[2022-06-13] MEDS: Heparin Injection (Vial) 5,000 UNIT/ML VIAL IV (22:26)
[2022-06-14] VITALS (33 sets, daily range): BP systolic 86–162; BP diastolic 52–93; PULSE 63–83; RESP 11–20; TEMP 36.3–37.1; O2SAT 78–100; BMI 31.4
[2022-06-14 04:11] LABS: Partial Thromboplast Time 48.4 Seconds (24.1-36.2)
[2022-06-14 04:19] LABS: Absolute Lymphocyte Count 2.85 X10^3/uL (0.83-4.51); Basophil# 0.04 X10^3/uL; Basophil% 0.5 % (0-1); Eosinophil# 0.19 X10^3/uL; Eosinophils% 2.2 % (0-5); Hematocrit 41.6 % (40-54); Lymphocyte # 2.85 X10^3/ul (0.83-4.51); Lymphocyte % 32.5 % (19-41); Mean Corp Hgb Conc 33.7 g/dL (32-36); Mean Corpuscular Hgb 28.9 pg (27.0-32.0); Mean Platelet Vol. 10.5 fl (6.2-12.0); NRBC Flagged by Analyzer 0 % (0-5); Neutrophil # 4.97 X10^3/uL (2.7-7.7); Neutrophil % 56.5 % (47-70); Platelet Count 205 K/mm3 (150-450); RBC Distribution Width SD 37.8 fl (35.1-43.9); Red Blood Count 4.84 M/mm3 (4.6-6.2); White Blood Count 8.8 K/mm3 (4.4-11.0)
[2022-06-14 04:28] LABS: Anion Gap 7 (5-15); BUN 16 mg/dL (7-18); BUN/Creat Ratio 19.7 RATIO (10-20); Calcium,Total 8.9 mg/dL (8.5-10.1); Chloride 107 mmol/L (98-107); Creatinine, Serum 0.81 mg/dL (0.70-1.30); EST Glomerular Filtration Rate 108 mL/min (>60); Est Glom Filt Rate - Afr Amer 130 mL/min (>60); Estimated Creatinine Clearance 131.08 ml/min; Glucose 230 mg/dL (74-106); Sodium Level 138 mmol/L (136-145)
--- NOTE | 2022-06-14 05:00 | EKG12_ITS ---
Test Reason : AM EKG Blood Pressure : / mmHG Vent. Rate : 074 BPM Atrial Rate : 074 BPM P-R Int : 140 ms QRS Dur : 100 ms QT Int : 424 ms P-R-T Axes : 041 -36 087 degrees QTc Int : 470 ms Normal sinus rhythm Left axis deviation ST & Marked T wave abnormality, consider anterolateral ischemia Prolonged QT Abnormal ECG Confirmed by JAMES DUBON, KATIE ([id number]), food expeditor MISHA WILSON ([id number]) on 06/17/2022 9:14:15 AM Referred By: RALF Confirmed By:KATIE RAMIREZ MD
[2022-06-14] MEDS: Aspirin E.C. 81 MG Tablet PO (05:43)
[2022-06-14 06:05] LABS: Bedside Glucose 220 mg/dL (74-106)
--- NOTE | 2022-06-14 06:37 | EKG12_ITS ---
Test Reason : POST STEMI Blood Pressure : / mmHG Vent. Rate : 066 BPM Atrial Rate : 066 BPM P-R Int : 144 ms QRS Dur : 096 ms QT Int : 426 ms P-R-T Axes : 038 -25 112 degrees QTc Int : 446 ms Normal sinus rhythm ST & Marked T wave abnormality, consider anterolateral ischemia Abnormal ECG Confirmed by JAMES DUBON, KATIE ([id number]), supervising editor trailer MISHA WILSON ([id number]) on 06/23/2022 9:59:41 AM Referred By: CHICHO Confirmed By:KATIE RAMIREZ MD
[2022-06-14] MEDS: Morphine 4 MG/ML Syringe IV ×2 (06:44→21:03)
--- NOTE | 2022-06-14 07:58 | PCM.PN.HOSP ---
Reason for Visit Reason for Visit: Diagnoses Type 2 diabetes mellitus without complications (06/13/22) Unstable angina (06/13/22) Non-ST elevation (NSTEMI) myocardial infarction (06/13/22) Atherosclerotic heart disease of [place] coronary artery without angina pectoris (06/13/22) Chest pain, unspecified (06/13/22) Hyperglycemia, unspecified (06/13/22) Personal history of other diseases of the circulatory system (06/13/22) Presence of coronary angioplasty implant and graft (06/13/22) Subjective Subjective Patient is a 46-year-old gentleman admitted with chest pain. Please on a monitored bed consultation placed to cardiology plans for patient to undergo left heart catheterization Objective Data Objective Data Vital Signs: Vital Signs Temp Pulse Resp BP Pulse Ox O2 Del Method 98.8 F 74 14 116/73 94 Room Air 06/14/22 00:21 06/14/22 06:30 06/14/22 06:00 06/14/22 06:45 06/14/22 06:55 06/14/22 06:55 Oxygen Delivery Method Room Air Weight: 111.2 kg Body Mass Index (BMI) 31.4 Intake & Output: Intake and Output for Last 24 Hours 06/12/22 06/13/22 06/14/22 23:59 23:59 23:59 Intake Total 1125.35 / 1125.35 142.17 / 142.17 Balance 1125.35 / 1125.35 142.17 / 142.17 Lab / Micro Data Result Diagrams: 06/14/22 03:45 06/14/22 03:45 Labs: Laboratory Results - last 24 hr 06/13/22 05:46: Hemoglobin A1c 10.0 H 06/13/22 07:53: POC Glucose 245 H 06/13/22 11:26: POC Glucose 265 H 06/13/22 12:57: WBC 9.1, RBC 5.00, Hgb 14.6, Hct 42.2, MCV 84.4, MCH 29.2, MCHC 34.6, RDW Std Deviation 36.7, RDW Coeff of Sebast[place] 12.1, Plt Count 220, MPV 9.8, Immature Gran % (Auto) 0.200, Neut % (Auto) 68.4, Lymph % (Auto) 22.7, [place] % (Auto) 6.4, Eos % (Auto) 1.9, Baso % (Auto) 0.4, Absolute Neuts (auto) 6.2, Absolute Lymphs (auto) 2.07, Nucleated RBC % 0 06/13/22 12:57: PT 12.9, INR 1.0, APTT 26.0 06/13/22 16:31: POC Glucose 237 H 06/13/22 16:43: Troponin I High Sens 118 H 06/13/22 20:08: APTT 37.2 H 06/13/22 21:14: POC Glucose 219 H 06/14/22 03:45: APTT 48.4 H 06/14/22 03:45: WBC 8.8, RBC 4.84, Hgb 14.0, Hct 41.6, MCV 86.0, MCH 28.9, MCHC 33.7, RDW Std Deviation 37.8, RDW Coeff of Sebastián 12.0, Plt Count 205, MPV 10.5, Immature Gran % (Auto) 0.300, Neut % (Auto) 56.5, Lymph % (Auto) 32.5, [place] % (Auto) 8.0, Eos % (Auto) 2.2, Baso % (Auto) 0.5, Absolute Neuts (auto) 5.0, Absolute Lymphs (auto) 2.85, Nucleated RBC % 0 06/14/22 03:45: Sodium 138, Potassium 4.0, Chloride 107, Carbon Dioxide 24.0, Anion Gap 7, BUN 16, Creatinine 0.81, Estim Creat Clear Calc 131.08, Est GFR (MDRD) Af Amer 130, Est GFR (MDRD) Non-Af 108, BUN/Creatinine Ratio 19.7, Glucose 230 H, Calcium 8.9 06/14/22 05:43: POC Glucose 220 H Physical Exam Narrative Physical exam: General: Well-nourished, well-developed. Head: Normocephalic, atraumatic, no tenderness Eyes: Vision is grossly intact. EOMI ENT, no trauma, moist mucous membranes, no rhinorrhea Neck: Nontender, No thyromegaly. CVS: Regular rate and rhythm. S1-S2 present. No murmur, gallop or rub. Respiratory : clear to auscultation bilaterally, chest wall nontender, no wheezing Abdomen: Soft, nontender, nondistended, normal bowel sounds, no masses : Deferred Back: Nontender, no CVA tenderness, no midline spinal tenderness, deformities, step-offs Extremities: Nontender full range of motion, no trauma Skin: Normal color, no trauma, abrasions Neuro: Alert, oriented, cranial nerves II through XII grossly intact. Psychiatry: Normal mood. Normal affect. Not depressed. Not anxious. Assessment & Plan Assessment/Plan (1) History of CAD (coronary artery disease): (2) Acute hyperglycemia: (3) Diabetes mellitus: (4) Chest pain: (5) STEMI (ST elevation myocardial infarction): PLAN: Plan Patient is a 46-year-old gentleman admitted with chest pain. Please on a monitored bed consultation placed to cardiology plans for patient to undergo left heart catheterization 1. Acute myocardial myocardial infarction (Initially non-STEMI later evolved to ST segment elevation [place] involving the anterolateral distribution ) ? Patient was initially placed on a monitored bed managed per protocol with plans put in place for patient to undergo left heart catheterization with intervention if needed patient however did develop recurrent chest pain EKG demonstrated ST segment elevation NJ. Underwent emergency left heart catheterization with PCI to SILVA to an LAD lesion with plans for patient to come back for a staged intervention of an RCA lesion 2. Coronary artery disease ? With previous recurrent non-ST NJ with PCI to circumflex as well as RCA lesion 3. Diabetes mellitus type 2 ? Patient not on any medication hemoglobin A1c on admission was 10.0 patient started on long-acting insulin with Accu-Cheks before meals and at bedtime with sliding scale coverage 4. Class I obesity with BMI of 31.5 ? Weight loss advised 5. DVT prophylaxis ? SC Lovenox Time spent in the patient's overall evaluation,decision-making process, review of diagnostic data, adjustment of management, discussion with other providers, nursing nursing and ancillary staff involved in patient's care documentation, 55 Minutes Charges/Coding Visit Charges Inpatient E&M: 96388 [facility] Hosp L3
--- NOTE | 2022-06-14 08:05 | PCM.PN.CARD ---
Subjective Subjective The patient was evaluated earlier this day. At the time he started to complain of recurrent chest discomfort with radiation to the left upper extremity on the jaw. A follow-up ECG was performed. As compared to his previous ECGs which had demonstrated sinus rhythm with T wave abnormality compatible with myocardial ischemia in the anterolateral distribution his ECG this morning demonstrated what appeared to be the initiation of ST segment elevation in the anterior distribution. Thus, a STEMI alert was initiated. The patient was subsequently transferred to the [facility] cardiac catheterization laboratory for further evaluation care. His case was discussed with Dr. Durand of the interventional cardiology staff. Objective Data Vital Signs: Vital Signs Temp Pulse Resp BP Pulse Ox O2 Del Method 98.8 F 74 14 116/73 94 Room Air 06/14/22 00:21 06/14/22 06:30 06/14/22 06:00 06/14/22 06:45 06/14/22 06:55 06/14/22 06:55 Oxygen Delivery Method Room Air Weight: 245 lb 2.464 oz Body Mass Index (BMI) 31.4 Intake & Output: Intake and Output for Last 24 Hours 06/12/22 06/13/22 06/14/22 23:59 23:59 23:59 Intake Total 1125.35 / 1125.35 142.17 / 142.17 Balance 1125.35 / 1125.35 142.17 / 142.17 Lab / Micro Data Result Diagrams: 06/14/22 03:45 06/14/22 03:45 Labs: Laboratory Results - last 24 hr 06/13/22 05:46: Hemoglobin A1c 10.0 H 06/13/22 07:53: POC Glucose 245 H 06/13/22 11:26: POC Glucose 265 H 06/13/22 12:57: WBC 9.1, RBC 5.00, Hgb 14.6, Hct 42.2, MCV 84.4, MCH 29.2, MCHC 34.6, RDW Std Deviation 36.7, RDW Coeff of Sebastián 12.1, Plt Count 220, MPV 9.8, Immature Gran % (Auto) 0.200, Neut % (Auto) 68.4, Lymph % (Auto) 22.7, [place] % (Auto) 6.4, Eos % (Auto) 1.9, Baso % (Auto) 0.4, Absolute Neuts (auto) 6.2, Absolute Lymphs (auto) 2.07, Nucleated RBC % 0 06/13/22 12:57: PT 12.9, INR 1.0, APTT 26.0 06/13/22 16:31: POC Glucose 237 H 06/13/22 16:43: Troponin I High Sens 118 H 06/13/22 20:08: APTT 37.2 H 06/13/22 21:14: POC Glucose 219 H 06/14/22 03:45: APTT 48.4 H 06/14/22 03:45: WBC 8.8, RBC 4.84, Hgb 14.0, Hct 41.6, MCV 86.0, MCH 28.9, MCHC 33.7, RDW Std Deviation 37.8, RDW Coeff of Sebastián 12.0, Plt Count 205, MPV 10.5, Immature Gran % (Auto) 0.300, Neut % (Auto) 56.5, Lymph % (Auto) 32.5, [place] % (Auto) 8.0, Eos % (Auto) 2.2, Baso % (Auto) 0.5, Absolute Neuts (auto) 5.0, Absolute Lymphs (auto) 2.85, Nucleated RBC % 0 06/14/22 03:45: Sodium 138, Potassium 4.0, Chloride 107, Carbon Dioxide 24.0, Anion Gap 7, BUN 16, Creatinine 0.81, Estim Creat Clear Calc 131.08, Est GFR (MDRD) Af Amer 130, Est GFR (MDRD) Non-Af 108, BUN/Creatinine Ratio 19.7, Glucose 230 H, Calcium 8.9 06/14/22 05:43: POC Glucose 220 H Cardiology Labs/Tests 06/13/22 05:46: Hemoglobin A1c 10.0 H 06/13/22 12:57: WBC 9.1, RBC 5.00, Hgb 14.6, Hct 42.2, MCV 84.4, MCH 29.2, MCHC 34.6, Plt Count 220, MPV 9.8, Immature Gran % (Auto) 0.200, Neut % (Auto) 68.4, Lymph % (Auto) 22.7, [place] % (Auto) 6.4, Eos % (Auto) 1.9, Baso % (Auto) 0.4, Absolute Neuts (auto) 6.2, Nucleated RBC % 0 06/13/22 12:57: PT 12.9, INR 1.0, APTT 26.0 06/13/22 20:08: APTT 37.2 H 06/14/22 03:45: APTT 48.4 H 06/14/22 03:45: WBC 8.8, RBC 4.84, Hgb 14.0, Hct 41.6, MCV 86.0, MCH 28.9, MCHC 33.7, Plt Count 205, MPV 10.5, Immature Gran % (Auto) 0.300, Neut % (Auto) 56.5, Lymph % (Auto) 32.5, [place] % (Auto) 8.0, Eos % (Auto) 2.2, Baso % (Auto) 0.5, Absolute Neuts (auto) 5.0, Nucleated RBC % 0 06/14/22 03:45: Sodium 138, Potassium 4.0, Chloride 107, Carbon Dioxide 24.0, Anion Gap 7, BUN 16, Creatinine 0.81, Est GFR (MDRD) Af Amer 130, Est GFR (MDRD) Non-Af 108, BUN/Creatinine Ratio 19.7, Glucose 230 H, Calcium 8.9 Rhythm: Sinus rhythm EKG: As noted above Physical Exam Const alert and oriented x3 Constitutional Narrative: Uncomfortable appearing Orientation / Consciousness: awake HEENT normocephalic, head/scalp atraumatic and hearing grossly normal bilaterally Eyes PERRL, EOMs intact bilaterally, conjunctivae normal and no scleral icterus Neck full ROM, supple and no JVD Carotids: normal carotid upstroke Chest inspection of chest normal Resp normal respiratory effort and clear to auscultation bilaterally Cardio regular rate, regular rhythm, S1 normal heart sound and S2 normal heart sound GI normal to inspection, nondistended, normoactive bowel sounds Extremity no pedal edema Skin no rashes or lesions noted Psych mental status grossly normal Assessment & Plan Assessment/Plan (1) Unstable angina: PLAN: The patient has had waxing and waning symptoms compatible with angina pectoris which have occurred at rest being compatible with unstable angina pectoris. The patient was evaluated and thought to have findings compatible with an acute non-ST segment elevation MA. He was continuing medical therapy. However, this a.m. he had recurrent symptoms and electrocardiographic changes as noted above suggestive of the initiation of a STEMI. Thus, STEMI alert was initiated and the patient was transferred to the cardiac catheterization laboratory for further evaluation care under the direction of Dr. Durand of interventional cardiology. His previous noninvasive and invasive studies have been reviewed. (2) NSTEMI (non-ST elevated myocardial infarction): PLAN: The patient has objective findings compatible with an acute non-ST segment elevation MA. As noted above his clinical course has changed to raise concerns of the initiation of a STEMI. He will continue to be monitored. He will continue medical therapy. He has been transferred to the cardiac catheterization laboratory for further evaluation and care. (3) STEMI (ST elevation myocardial infarction): PLAN: The patient, based upon his ongoing clinical course and changing electrocardiogram this a.m., appears to have initiated a STEMI. He has been treated medically with a combination of agents which have included aspirin, IV heparin, beta-blockers, statins, as well as morphine sulfate. He has currently been transferred to the cardiac catheterization laboratory for further evaluation and care under the direction of Dr. Durand of interventional cardiology. (4) CAD (coronary artery disease): PLAN: The patient has a history of premature CAD. He has undergone previous evaluation in 2020 as noted. He admits he stopped his medications and did not continue with outpatient follow-up. He is now undergoing evaluation for a recurrent acute coronary syndrome as described above. He will continue evaluation and care as noted above (5) History of coronary artery stent placement: PLAN: The patient has previously undergone evaluation with diagnostic cardiac catheterization and PCI. He received PCI to the LCx system with a Synergy 3.0 x 16 mm drug-eluting stent. In his report it was recommended that he be considered for PCI of the RCA system if he had recurrent concerning symptoms despite ongoing medical management. Addt'l Comments The patient's case was discussed and reviewed with the patient and with Dr. Durand of interventional cardiology. Comment: Time spent the patient's evaluation, examination, review of medical records, review of electrocardiograms, discussion, placing orders, documentation,: 40 minutes. Procedure Criteria Type of Procedure Procedure Type: Elective Elective Risks - COVID COVID Risk Discussion: The surgeon/proceduralist and patient have discussed in detail the risk of exposure to and/or potential harm posed by the COVID-19 virus with having a surgery/procedure at this time versus the risk of delaying the surgery/procedure. It is not possible to know either the risk of delaying the surgery or procedure or chance of getting an infection with perfect accuracy, but a joint decision was made between the patient and the surgeon/proceduralist to proceed at this time with the scheduled surgery/procedure as indicated on the consent form.
--- NOTE | 2022-06-14 08:36 | CL.I_ITS ---
Patient Name: NORBERTO REYES Study Date: 06/14/2022 Performing: James Durand MD Ht: 74 inches 187.96 cm : 1975 Wt: 245.15 lbs 111.2 kg Age: 46 Gender: male BSA: 2.37 PROCEDURE(S) PERFORMED DC01-(82908)LHC/COR/LV IC16-(52013/C9606)AMI, SILVA OR PTCA, ARTERY/GRAFT, SINGLE VESSEL CLINICAL PROFILE AND CO-MORBIDITIES Heart Failure: None CONCLUSIONS 99% Mid LAD Stent to Mid LCX patent RECOMMENDATIONS ASA Indefinitley Plavix for at least 12 months Staged PCI to RCA as OP DESCRIPTION OF PROCEDURE The patient arrived to the procedure lab. The risks and benefits of the procedure as well as a full description of our services here and lack of surgical backup were fully explained to the patient and/or their significant other prior to the catheterization. The Timeout was completed, verifying the correct patient and procedure. The patient's procedural site was prepped and draped in the usual fashion. Local anesthetic was given subcutaneously to right radial region with Lidocaine 2%. Using a modified Seldinger technique, arterial access was obtained via the right radial artery, a 6Fr sheath was inserted.. Right Coronary Artery selective angiography was then performed in multiple views using a 5 Fr. JR 4 catheter. Left Ventriculography was performed in HANSEN projection using a 5 Fr. Pigtail catheter XB 3.0 Guide catheter was inserted and engaged into the LCA. Runthrough Guide wire was advanced to the LAD. SC Euphora 2.0x20 Balloon catheter was inserted. PTCA balloon inflated at 12 atms for 16 secs. Angiogram performed post balloon dilatation. Resolute [place] 3.0x38 Drug Eluting stent was inserted. Angiogram performed post stent deployment. Resolute 3.0x15 Drug Eluting stent was inserted. Angiogram performed post stent deployment. NC Emerge 3.0x20 Balloon catheter was inserted. Angiogram performed post balloon dilatation. The arterial sheath was pulled and a TR Band was applied for hemostasis CORONARY ANGIOGRAPHY DOMINANCE: Right Dominant LEFT HEART ASSESSMENT Left Ventricular Ejection Fraction: by LV Gram 40 % LVEDP: 10 mmHg LEFT ANTERIOR DESCENDING ARTERY: LAD: Tubular 99% Mid lesion in LAD OM 2: Tubular 30% Proximal lesion in 2nd OM RIGHT CORONARY ARTERY: RCA: Tubular 80% Proximal lesion in RCA INTERVENTION INFORMATION LESION SITE: LAD (Mid) Lesion Complexity: High/C, culprit lesion: Yes, lesion length: 51 mm Pre Stenosis: 99 % Pre intervention SARAH flow: 1 PROCEDURE: Drug Eluting Stent with pre and post dilatation Post Stenosis: 0 % Post intervention SARAH flow: 3 Lesion Devices: Terumo .014 180cm Runthrough Extra Floppy straight Cordis 6 Fr XB3.0 100cm Guide Catheter Medtronic SC EUPHORA RX 2.0x20 BALLOON Medtronic Resolute Dirk RX SILVA 3.0x38 Medtronic Resolute Dirk RX SILVA 3.0x38 Medtronic Resolute [place] RX SILVA 3.0x15 Tomas Sci NC EMERGE MR 3.00x20 BALLOON COMPLICATIONS No Complications PROCEDURE MEDICATIONS Fentanyl 50 mcg IV Versed 1 mg IV Oxygen: 2 L/min via nasal cannula Brilinta 180 mg PO @ 06/14/2022 07:42:14 Heparin 8000 unit(s) IV 06/14/2022 07:34:02 Heparin 3000 unit(s) IV 06/14/2022 07:45:36 Heparin 3000 unit(s) IV 06/14/2022 08:20:59 Nitro glycerin 25mg / 250ml D5W @ 20 mcg/min IV started in PCU 06/14/2022 07:14:00 Nitro 200 mcg IC 06/14/2022 07:45:23 Nitro glycerin 25mg / 250ml D5W @ 20 mcg/min discontinued 06/14/2022 07:52:18 Verapamil 2.5mg, Ntg 200mcgs, given IA 06/14/2022 07:34:07 SUMMARY OF HEMODYNAMIC DATA Time AIR REST ECG 07:11:24 AO 116/63 (86) SA 07:43:01 LV 105/3, 10 08:10:35 LV 117/4, 10 08:10:44 08:28:59 Signed By James Durand MD On 06/14/2022 08:35:50 James Durand MD
[2022-06-14] MEDS: 0.9% Normal Saline 1,000 ML 100 ML IV (09:15)
[2022-06-14] MEDS: Insulin Lispro 100 UNIT/ML INSULN.PEN SC ×4 (09:21→21:02)
[2022-06-14 09:30] LABS: Bedside Glucose 235 mg/dL (74-106)
[2022-06-14] MEDS: Insulin Glargine-YFGN 100 UNIT/ML Pen 15 UNIT SC (09:32)
[2022-06-14] MEDS: Metoprolol Tartrate 25 MG Tablet PO ×2 (09:34→21:02)
[2022-06-14] MEDS: Lisinopril 2.5 MG Tablet PO (09:37)
--- NOTE | 2022-06-14 11:14 | CASEMGMT ---
Social Work SW met w/pt, reviewed prior level of care and anticipated plan at discharge. PCP: None Specialists: None Insurance/Prescription Benefits: Self Pay. Pt completed Medicaid application w/Vicki from [employer] Preferred Pharmacy: Pt states usually uses [place], is okay with [facility] also for sake of ease when discharged LNOK: , 4 children, 18 and under LW/POA: Pt states has completed the documents, is POA. Forms not on file here at [facility]. Living arrangements: Pt lives in a one story home w/ and children. Pt is independent with all ADLs. Pt drives. DME/SNF/HHC: Pt has a glucometer and test strips, no other DME. Pt has never been to SNF or needed HHC. Plan: Home SW did also provide to pt some resources, including prescription assist programs, [facility] assist, the [employer] [facility], and a list of other resources from [facility]. Pt familiar w/[facility], he has used this in the past. Pt did complete a Medicaid application w/Vicki. SW spoke w/pt about what happened leading up to his surgery, support offered. Physician came in while SW speaking to pt, he reiterated the importance of pt taking his medication. SW spoke w/pt about the medications. Pt states he does not take his diabetic meds as he controls it with diet and feels better without the medication. He states he does monitor his blood sugar, has a meter and strips. Pt did state his medications were expensive, used [facility] to help with the cost of blood thinners. SW remains available, pt may benefit from utilizing hospital assist for medications at discharge, will need to see the cost and if it is affordable for pt. SW will follow up if needed for med assist. GUSTAVO Sierra
[2022-06-14 12:25] LABS: Bedside Glucose 265 mg/dL (74-106)
[2022-06-14 16:18] LABS: ACT Activated Clotting Time 233 sec (74-137)
[2022-06-14 16:19] LABS: ACT Activated Clotting Time 209 sec (74-137)
[2022-06-14 16:45] LABS: Bedside Glucose 233 mg/dL (74-106)
[2022-06-14] MEDS: Clopidogrel Bisulfate 300 MG Tablet PO (17:29)
[2022-06-14] MEDS: Acetaminophen 325 MG Tablet 650 MG PO (18:27)
[2022-06-14] MEDS: Atorvastatin Calcium 80 MG Tablet PO (21:02)
[2022-06-14] MEDS: 0.9% Saline Lock 10 ML Syringe IV (21:03)
[2022-06-14 22:25] LABS: Bedside Glucose 161 mg/dL (74-106)
[2022-06-15] VITALS (13 sets, daily range): BP systolic 99–159; BP diastolic 54–82; PULSE 54–77; RESP 10–17; TEMP 36.1–36.6; O2SAT 94–100; BMI 31.4
[2022-06-15 04:22] LABS: Hematocrit 42.6 % (40-54); Hemoglobin 14.2 g/dL (13.0-16.5); Mean Corp Hgb Conc 33.3 g/dL (32-36); Mean Corpuscular Hgb 28.9 pg (27.0-32.0); Mean Corpuscular Volume 86.8 fL (80-94); Mean Platelet Vol. 10.2 fl (6.2-12.0); Platelet Count 212 K/mm3 (150-450); RBC Distribution Width SD 38.4 fl (35.1-43.9); Red Blood Count 4.91 M/mm3 (4.6-6.2); White Blood Count 6.6 K/mm3 (4.4-11.0)
[2022-06-15 04:39] LABS: ALB/GLOB Ratio 1.1 RATIO (0.9-2.4); AST(SGOT) 19 U/L (15-37); Alanine Aminotransfer ALT/SGPT 31 U/L (16-61); Albumin, Serum 3.4 g/dL (3.2-5.0); Alkaline Phosphatase 63 U/L (45-117); Anion Gap 6 (5-15); BUN 14 mg/dL (7-18); BUN/Creat Ratio 17.8 RATIO (10-20); Calcium,Total 8.8 mg/dL (8.5-10.1); Chloride 110 mmol/L (98-107); Creatinine, Serum 0.78 mg/dL (0.70-1.30); EST Glomerular Filtration Rate 112 mL/min (>60); Est Glom Filt Rate - Afr Amer 136 mL/min (>60); Estimated Creatinine Clearance 136.12 ml/min; Globulin 3.2 g/dL (2.2-4.2); Glucose 160 mg/dL (74-106); Potassium 4.4 mmol/L (3.5-5.1); Protein, Total 6.6 g/dL (6.4-8.2); Sodium Level 140 mmol/L (136-145)
[2022-06-15] MEDS: Insulin Lispro 100 UNIT/ML INSULN.PEN SC (07:00)
--- NOTE | 2022-06-15 07:15 | PCM.PN.HOSP ---
Reason for Visit Reason for Visit: Diagnoses Type 2 diabetes mellitus without complications (06/13/22) Unstable angina (06/13/22) ST elevation (STEMI) myocardial infarction of unspecified site (06/13/22) Non-ST elevation (NSTEMI) myocardial infarction (06/13/22) Atherosclerotic heart disease of [place] coronary artery without angina pectoris (06/13/22) Chest pain, unspecified (06/13/22) Hyperglycemia, unspecified (06/13/22) Personal history of other diseases of the circulatory system (06/13/22) Presence of coronary angioplasty implant and graft (06/13/22) Subjective Subjective Patient seen no chest pain Case discussed with Dr. Ag plan is for patient to be discharged home to be brought back for staged PCI of an RCA lesion Objective Data Objective Data Vital Signs: Vital Signs Temp Pulse Resp BP Pulse Ox O2 Del Method 97.2 F L 72 13 119/76 94 Room Air 06/15/22 00:00 06/15/22 06:00 06/15/22 06:00 06/15/22 06:00 06/15/22 06:00 06/15/22 06:00 Oxygen Delivery Method Room Air Weight: 111.1 kg Body Mass Index (BMI) 31.4 Intake & Output: Intake and Output for Last 24 Hours 06/13/22 06/14/22 06/15/22 23:59 23:59 23:59 Intake Total 1125.35 / 1125.35 1577.17 / 1577.17 Balance 1125.35 / 1125.35 1577.17 / 1577.17 Lab / Micro Data Result Diagrams: 06/15/22 04:15 06/15/22 04:15 Labs: Laboratory Results - last 24 hr 06/14/22 07:45: Activated Clotting Time 233 H 06/14/22 08:20: Activated Clotting Time 209 H 06/14/22 09:10: POC Glucose 235 H 06/14/22 11:56: POC Glucose 265 H 06/14/22 16:25: POC Glucose 233 H 06/14/22 20:57: POC Glucose 161 H 06/15/22 04:15: WBC 6.6, RBC 4.91, Hgb 14.2, Hct 42.6, MCV 86.8, MCH 28.9, MCHC 33.3, RDW Std Deviation 38.4, RDW Coeff of Sebastián 12.0, Plt Count 212, MPV 10.2 06/15/22 04:15: Sodium 140, Potassium 4.4, Chloride 110 H, Carbon Dioxide 24.0, Anion Gap 6, BUN 14, Creatinine 0.78, Estim Creat Clear Calc 136.12, Est GFR (MDRD) Af Amer 136, Est GFR (MDRD) Non-Af 112, BUN/Creatinine Ratio 17.8, Glucose 160 H, Calcium 8.8, Total Bilirubin 0.70, AST 19, ALT 31, Alkaline Phosphatase 63, Total Protein 6.6, Albumin 3.4, Globulin 3.2, Albumin/Globulin Ratio 1.1 Radiography Diagnostic Testing: Radiology Impression Echocardiogram 06/13/22 07:49 Interpretation Summary Segmental dysfunction with preserved ejection fraction (see wall motion). The estimated ejection fraction is 55 %. Trivial mitral valve insufficiency. Trivial tricuspid valve insufficiency. Trivial pulmonic valve insufficiency. Unable to estimate RV systolic pressure due to insufficient tricuspid regurgitant envelope. No evidence for diastolic dysfunction. Ordering Physician: Baljinder Faulkner Referring Physician: PANKAJ PCP Performed By: Ricarda Diaz RCS Physical Exam Narrative Physical exam: General: Well-nourished, well-developed. Head: Normocephalic, atraumatic, no tenderness Eyes: Vision is grossly intact. EOMI ENT, no trauma, moist mucous membranes, no rhinorrhea Neck: Nontender, No thyromegaly. CVS: Regular rate and rhythm. S1-S2 present. No murmur, gallop or rub. Respiratory : clear to auscultation bilaterally, chest wall nontender, no wheezing Abdomen: Soft, nontender, nondistended, normal bowel sounds, no masses : Deferred Back: Nontender, no CVA tenderness, no midline spinal tenderness, deformities, step-offs Extremities: Nontender full range of motion, no trauma Skin: Normal color, no trauma, abrasions Neuro: Alert, oriented, cranial nerves II through XII grossly intact. Psychiatry: Normal mood. Normal affect. Not depressed. Not anxious. Assessment & Plan Assessment/Plan (1) History of CAD (coronary artery disease): (2) Acute hyperglycemia: (3) Diabetes mellitus: (4) Chest pain: (5) STEMI (ST elevation myocardial infarction): PLAN: Plan Patient is a 46-year-old gentleman admitted with chest pain. Please on a monitored bed consultation placed to cardiology plans for patient to undergo left heart catheterization 1. Acute myocardial myocardial infarction (Initially non-STEMI later evolved to ST segment elevation [place] involving the anterolateral distribution ) ? Patient was initially placed on a monitored bed managed per protocol with plans put in place for patient to undergo left heart catheterization with intervention if needed patient however did develop recurrent chest pain EKG demonstrated ST segment elevation SD. Underwent emergency left heart catheterization with PCI to SILVA to an LAD lesion with plans for patient to come back for a staged intervention of an RCA lesion 2. Coronary artery disease ? With previous recurrent non-ST [place] with PCI to circumflex as well as RCA lesion 3. Diabetes mellitus type 2 ? Patient not on any medication hemoglobin A1c on admission was 10.0 patient started on long-acting insulin with Accu-Cheks before meals and at bedtime with sliding scale coverage 4. Class I obesity with BMI of 31.5 ? Weight loss advised 5. DVT prophylaxis ? SC Lovenox Time spent in the patient's overall evaluation,decision-making process, review of diagnostic data, adjustment of management, discussion with other providers, nursing nursing and ancillary staff involved in patient's care documentation, 35 Minutes Charges/Coding Visit Charges Inpatient E&M: 36915 Subs Hosp L2
--- NOTE | 2022-06-15 07:16 | PCM.DC.SUM ---
Providers Date of Admission: 06/13/22 Date of Discharge: 06/15/22 Primary Care Physician: Jessica Primary Care Phys Consultations 06/13/22 07:49 Consult: Cardiology Routine Consulting Provider: Carlos Ag Reason for Consult: chest pain, CAD EMERGENT Consult: No MD Notified: Yes Date Notified: 06/13/22 Time Notified: 07:49 Method of Notification: Verbal Reason For Visit: chest pain Diagnosis Discharge Diagnosis (1) History of CAD (coronary artery disease): Status: Acute Code(s): Z86.79 - Personal history of other diseases of the circulatory system (2) Acute hyperglycemia: Status: Acute Code(s): R73.9 - Hyperglycemia, unspecified (3) Diabetes mellitus: Status: Acute Code(s): E11.9 - Type 2 diabetes mellitus without complications (4) Chest pain: Status: Acute Code(s): R07.9 - Chest pain, unspecified (5) STEMI (ST elevation myocardial infarction): Status: Acute Code(s): I21.3 - ST elevation (STEMI) myocardial infarction of unspecified site Plan Patient is a 46-year-old gentleman admitted with chest pain. Please on a monitored bed consultation placed to cardiology plans for patient to undergo left heart catheterization 1. Acute myocardial myocardial infarction (Initially non-STEMI later evolved to ST segment elevation HI involving the anterolateral distribution ) ? Patient was initially placed on a monitored bed managed per protocol with plans put in place for patient to undergo left heart catheterization with intervention if needed patient however did develop recurrent chest pain EKG demonstrated ST segment elevation HI. Underwent emergency left heart catheterization with PCI to SILVA to an LAD lesion with plans for patient to come back for a staged intervention of an RCA lesion 2. Coronary artery disease ? With previous recurrent non-ST HI with PCI to circumflex as well as RCA lesion 3. Diabetes mellitus type 2 ? Patient not on any medication hemoglobin A1c on admission was 10.0 patient started on long-acting insulin with Accu-Cheks before meals and at bedtime with sliding scale coverage 4. Class I obesity with BMI of 31.5 ? Weight loss advised 5. DVT prophylaxis ? SC Lovenox Time spent in the patient's overall evaluation,decision-making process, review of diagnostic data, adjustment of management, discussion with other providers, nursing nursing and ancillary staff involved in patient's care documentation, 35 Minutes Medications at Discharge Home Medications aspirin 81 mg tablet,delayed release 81 mg PO BREAKFAST #90 tabs 06/15/22 atorvastatin 80 mg tablet 80 mg PO QHS #90 tabs 06/15/22 clopidogrel 75 mg tablet 75 mg PO DAILY #90 tabs 06/15/22 glimepiride 2 mg tablet (Amaryl) 2 mg PO DAILY #90 tabs 06/15/22 lisinopril 2.5 mg tablet 2.5 mg PO DAILY #90 tabs 06/15/22 metformin 1,000 mg tablet 1,000 mg PO BID #180 tabs 06/15/22 metoprolol tartrate 25 mg tablet 25 mg PO BID #180 tabs 06/15/22 Hospital Course Summary of Care Provided Minutes Spent on Discharge: 35 Physical Exam Narrative Physical exam: General: Well-nourished, well-developed. Head: Normocephalic, atraumatic, no tenderness Eyes: Vision is grossly intact. EOMI ENT, no trauma, moist mucous membranes, no rhinorrhea Neck: Nontender, No thyromegaly. CVS: Regular rate and rhythm. S1-S2 present. No murmur, gallop or rub. Respiratory : clear to auscultation bilaterally, chest wall nontender, no wheezing Abdomen: Soft, nontender, nondistended, normal bowel sounds, no masses : Deferred Back: Nontender, no CVA tenderness, no midline spinal tenderness, deformities, step-offs Extremities: Nontender full range of motion, no trauma Skin: Normal color, no trauma, abrasions Neuro: Alert, oriented, cranial nerves II through XII grossly intact. Psychiatry: Normal mood. Normal affect. Not depressed. Not anxious. Weight / BMI Weight Weight: 111.1 kg Body Mass Index (BMI) 31.4 ABG / Lab / Microbiology Data Result Diagrams: 06/15/22 04:15 06/15/22 04:15 Laboratory: Laboratory Results - last 24 hr 06/14/22 07:45: Activated Clotting Time 233 H 06/14/22 08:20: Activated Clotting Time 209 H 06/14/22 09:10: POC Glucose 235 H 06/14/22 11:56: POC Glucose 265 H 06/14/22 16:25: POC Glucose 233 H 06/14/22 20:57: POC Glucose 161 H 06/15/22 04:15: WBC 6.6, RBC 4.91, Hgb 14.2, Hct 42.6, MCV 86.8, MCH 28.9, MCHC 33.3, RDW Std Deviation 38.4, RDW Coeff of Sebastián 12.0, Plt Count 212, MPV 10.2 06/15/22 04:15: Sodium 140, Potassium 4.4, Chloride 110 H, Carbon Dioxide 24.0, Anion Gap 6, BUN 14, Creatinine 0.78, Estim Creat Clear Calc 136.12, Est GFR (MDRD) Af Amer 136, Est GFR (MDRD) Non-Af 112, BUN/Creatinine Ratio 17.8, Glucose 160 H, Calcium 8.8, Total Bilirubin 0.70, AST 19, ALT 31, Alkaline Phosphatase 63, Total Protein 6.6, Albumin 3.4, Globulin 3.2, Albumin/Globulin Ratio 1.1 Radiography Diagnostic Testing: Radiology Impression Echocardiogram 06/13/22 07:49 Interpretation Summary Segmental dysfunction with preserved ejection fraction (see wall motion). The estimated ejection fraction is 55 %. Trivial mitral valve insufficiency. Trivial tricuspid valve insufficiency. Trivial pulmonic valve insufficiency. Unable to estimate RV systolic pressure due to insufficient tricuspid regurgitant envelope. No evidence for diastolic dysfunction. Ordering Physician: Baljinder Faulkner Referring Physician: JESSICA PCP Performed By: Ricarda Diaz RCS D/C Instructions Discharge Diet: Low fat / Low cholesterol and 1800 Calorie Control Diet Discharge Activity: Return to Normal Activity Call your doctor if you observe: Fever of 101 or Higher, Shortness of breath, Fainting spells and Chest pain Meaningful Use Info Meaningful Use Diagnoses (Choose all that apply): AMI AMI/Post PCI/Angioplasty Aspirin given w/in 24hrs of arrival?: Yes ASA at discharge?: Yes Antiplatelet Therapy at Discharge:: Yes Statins at discharge?: Yes Sal/ARB at discharge?: Yes Beta Azalea at discharge?: Yes Done w/ Acute HI measure.: Yes Documented LVEF (%): 55 Discharge Plan Admission Admit Date/Time: 06/13/22 01:24 Attending Provider: Neel Hawkins Primary Care Provider: Care Physician,No Primary Consulting Providers: Du Sebastian ; Carlos Ag ; Baljinder Faulkner Discharge Orders/Prescriptions Prescriptions: New atorvastatin 80 mg Tablet 80 mg PO QHS Qty: 90 0RF clopidogrel 75 mg Tablet 75 mg PO DAILY Qty: 90 3RF aspirin 81 mg Tablet,Delayed Release (Dr/Ec) 81 mg PO BREAKFAST Qty: 90 0RF lisinopril 2.5 mg Tablet 2.5 mg PO DAILY Qty: 90 0RF metoprolol tartrate 25 mg Tablet 25 mg PO BID Qty: 180 0RF metformin 1,000 mg tablet 1,000 mg PO BID Qty: 180 0RF glimepiride [Amaryl] 2 mg tablet 2 mg PO DAILY Qty: 90 0RF Referrals / Follow Up: James Durand MD [Med Staff - Active Staff] - Within 2 Weeks (For staged PCI of an RCA lesion) Carlos Ag MD [Med Staff - Active Staff] - Within 2 Weeks Care Physician,No Primary [Primary Care Provider] - Disposition Disposition (needs filled in before D/C Order can be placed): Home, Self Care Charges/Coding Visit Charges Inpatient E&M: 04485 Disch Hosp >30min
[2022-06-15 07:20] LABS: Bedside Glucose 191 mg/dL (74-106)
[2022-06-15] MEDS: Metoprolol Tartrate 25 MG Tablet PO (08:01)
[2022-06-15] MEDS: Aspirin E.C. 81 MG Tablet PO (08:03)
[2022-06-15] MEDS: Clopidogrel Bisulfate 75 MG Tablet PO (08:04)
[2022-06-15] MEDS: Lisinopril 2.5 MG Tablet PO (08:04)
[2022-06-15] MEDS: Insulin Glargine-YFGN 100 UNIT/ML Pen 20 UNIT SC (08:05)
--- NOTE | 2022-06-15 08:15 | PN.CARD_ITS ---
Subjective Subjective The patient is awake and alert. He states he feels so much better today than he did yesterday. He is not having any of his chest, jaw, or arm discomfort as he was having yesterday. He has no acute respiratory related concerns. Objective Data Vital Signs: Vital Signs Temp Pulse Resp BP Pulse Ox O2 Del Method 97 F L 77 10 L 118/63 100 Room Air 06/15/22 07:00 06/15/22 08:01 06/15/22 07:00 06/15/22 08:01 06/15/22 07:00 06/15/22 07:00 Oxygen Delivery Method Room Air Weight: 244 lb 14.937 oz Body Mass Index (BMI) 31.4 Intake & Output: Intake and Output for Last 24 Hours 06/13/22 06/14/22 06/15/22 23:59 23:59 23:59 Intake Total 1125.35 / 1125.35 1577.17 / 1577.17 Balance 1125.35 / 1125.35 1577.17 / 1577.17 Lab / Micro Data Result Diagrams: 06/15/22 04:15 06/15/22 04:15 Labs: Laboratory Results - last 24 hr 06/14/22 07:45: Activated Clotting Time 233 H 06/14/22 08:20: Activated Clotting Time 209 H 06/14/22 09:10: POC Glucose 235 H 06/14/22 11:56: POC Glucose 265 H 06/14/22 16:25: POC Glucose 233 H 06/14/22 20:57: POC Glucose 161 H 06/15/22 04:15: WBC 6.6, RBC 4.91, Hgb 14.2, Hct 42.6, MCV 86.8, MCH 28.9, MCHC 33.3, RDW Std Deviation 38.4, RDW Coeff of Sebastián 12.0, Plt Count 212, MPV 10.2 06/15/22 04:15: Sodium 140, Potassium 4.4, Chloride 110 H, Carbon Dioxide 24.0, Anion Gap 6, BUN 14, Creatinine 0.78, Estim Creat Clear Calc 136.12, Est GFR (MDRD) Af Amer 136, Est GFR (MDRD) Non-Af 112, BUN/Creatinine Ratio 17.8, Glucose 160 H, Calcium 8.8, Total Bilirubin 0.70, AST 19, ALT 31, Alkaline Phosphatase 63, Total Protein 6.6, Albumin 3.4, Globulin 3.2, Albumin/Globulin Ratio 1.1 06/15/22 06:58: POC Glucose 191 H Cardiology Labs/Tests 06/15/22 04:15: WBC 6.6, RBC 4.91, Hgb 14.2, Hct 42.6, MCV 86.8, MCH 28.9, MCHC 33.3, Plt Count 212, MPV 10.2 06/15/22 04:15: Sodium 140, Potassium 4.4, Chloride 110 H, Carbon Dioxide 24.0, Anion Gap 6, BUN 14, Creatinine 0.78, Est GFR (MDRD) Af Amer 136, Est GFR (MDRD) Non-Af 112, BUN/Creatinine Ratio 17.8, Glucose 160 H, Calcium 8.8, Total Bilirubin 0.70 Rhythm: Sinus rhythm EKG: Sinus rhythm; left axis deviation; low voltage QRS-limb leads; T wave abnormality compatible with anterolateral myocardial ischemia; compared to the previous ECG the aforementioned ST segment changes/elevation appear to have resolved to baseline ECHO: See below Cardiac Cath PCI: 06-14-2022: Per Dr. Durand: CONCLUSIONS 99% Mid LAD Stent to Mid LCX patent RECOMMENDATIONS ASA Indefinitley Plavix for at least 12 months Staged PCI to RCA as OP DESCRIPTION OF? PROCEDURE The patient arrived to the procedure lab. The risks and benefits of the procedure as well as a full description of our services here and lack of surgical backup were fully explained to the patient and/or their significant other prior to the catheterization. The Timeout was completed, verifying the correct patient and procedure. The patient's procedural site was prepped and draped in the usual fashion. Local anesthetic was given subcutaneously to right radial region with Lidocaine 2%. Using a modified Seldinger technique, arterial access was obtained via the right radial artery, a 6Fr sheath was inserted..? Right Coronary Artery selective angiography was then performed in multiple views using a 5 Fr. JR 4 catheter. Left Ventriculography was performed in HANSEN projection using a 5 Fr. Pigtail catheter ? ? XB 3.0 Guide catheter was inserted and engaged into the LCA. Runthrough Guide wire was advanced to the LAD. SC Euphora 2.0x20 Balloon catheter was inserted. PTCA balloon inflated at 12 atms for 16 secs. Angiogram performed post balloon dilatation. Resolute [place] 3.0x38 Drug Eluting stent was inserted. Angiogram performed post stent deployment. Resolute 3.0x15 Drug Eluting stent was inserted. Angiogram performed post stent deployment. NC Emerge 3.0x20 Balloon catheter was inserted. Angiogram performed post balloon dilatation. ? The arterial sheath was pulled and a TR Band was applied for hemostasis CORONARY ANGIOGRAPHY DOMINANCE:? Right Dominant LEFT HEART ASSESSMENT Left Ventricular Ejection Fraction: by LV Gram 40 % LVEDP: 10 mmHg LEFT ANTERIOR DESCENDING ARTERY: LAD: Tubular 99% Mid lesion in LAD OM 2: Tubular 30% Proximal lesion in 2nd OM RIGHT CORONARY ARTERY: RCA: Tubular 80% Proximal lesion in RCA INTERVENTION INFORMATION LESION SITE: LAD (Mid) Lesion Complexity: High/C, culprit lesion: Yes, lesion length: 51 mm ?Pre Stenosis: 99 % Pre intervention SARAH flow: 1 PROCEDURE: Drug Eluting Stent with pre and post dilatation Post Stenosis: 0 %? Post intervention SARAH flow: 3 Lesion Devices: Terumo .014 180cm Runthrough Extra Floppy straight Cordis 6 Fr XB3.0 100cm Guide Catheter Medtronic SC EUPHORA RX 2.0x20 BALLOON Medtronic Resolute Dirk RX SILVA 3.0x38 Medtronic Resolute [place] RX SILVA 3.0x38 Medtronic Resolute [place] RX SILVA 3.0x15 Tomas Sci NC EMERGE MR 3.00x20 BALLOON Radiography Diagnostic Testing: Radiology Impression Echocardiogram 06/13/22 07:49 Interpretation Summary Segmental dysfunction with preserved ejection fraction (see wall motion). The estimated ejection fraction is 55 %. Trivial mitral valve insufficiency. Trivial tricuspid valve insufficiency. Trivial pulmonic valve insufficiency. Unable to estimate RV systolic pressure due to insufficient tricuspid regurgitant envelope. No evidence for diastolic dysfunction. Ordering Physician: Baljinder Faulkner Referring Physician: NO PCP Performed By: Ricarda Diaz RCS Physical Exam Const alert, oriented x3 and no apparent distress Constitutional Narrative: Uncomfortable appearing Orientation / Consciousness: awake HEENT normocephalic, head/scalp atraumatic and hearing grossly normal bilaterally Eyes PERRL, EOMs intact bilaterally, conjunctivae normal and no scleral icterus Neck full ROM, supple and no JVD Carotids: normal carotid upstroke Chest inspection of chest normal Resp normal respiratory effort and clear to auscultation bilaterally Cardio regular rate, regular rhythm, S1 normal heart sound and S2 normal heart sound GI normal to inspection, nondistended, normoactive bowel sounds Extremity no pedal edema Extremity Narrative: Right radial artery area: Pulse 2+/4+: No bruit: No hematoma Skin no rashes or lesions noted Psych mental status grossly normal Assessment & Plan Assessment/Plan (1) Unstable angina: PLAN: The patient has undergone further evaluation with both noninvasive and invasive studies. He was found to have angiographically significant CAD involving the LAD and RCA distribution. As the LAD appeared to be the culprit vessel he underwent LAD PCI. He appears to be symptomatically improved this day. He will continue medical management at this time. This includes aspirin 81 mg p.o. daily, clopidogrel 75 mg p.o. daily, metoprolol 25 mg p.o. twice daily, lisinopril 2.5 mg p.o. daily, and atorvastatin at 80 mg p.o. nightly. (2) NSTEMI (non-ST elevated myocardial infarction): PLAN: The patient has objective findings compatible with an acute non-ST segment elevation CO. As noted above his clinical course has changed to raise concerns of the initiation of a STEMI. He subsequently underwent evaluation with diagnostic cardiac catheterization which led to LAD PCI. He appears to be symptomatically improved. He will continue medical therapy as noted above. He will be recommended for a future outpatient staged PCI to the RCA distribution under the direction of Dr. Durand. (3) STEMI (ST elevation myocardial infarction): PLAN: The patient, based upon his ongoing clinical course and changing electrocardiogram, appeared to have initiated a STEMI. He subsequently underwent evaluation in the cardiac catheterization laboratory. The results are as noted. He appears to be symptomatically improved. He will continue medical management as described above. He will be scheduled for future outpatient staged RCA PCI procedure. (4) CAD (coronary artery disease): PLAN: His CAD history was reviewed with him. At the present time he states he will continue to take his medications as prescribed. He was agreeable to returning in the future for future outpatient staged PCI procedure. (5) History of coronary artery stent placement: PLAN: The patient has previously undergone evaluation with diagnostic cardiac catheterization and PCI. He received PCI to the LCx system with a Synergy 3.0 x 16 mm drug-eluting stent. In his report it was recommended that he be considered for PCI of the RCA system if he had recurrent concerning symptoms despite ongoing medical management. His current cardiac catheterization demonstrated progression of disease in the LAD distribution. He underwent PCI/SILVA. He still has disease in the RCA distribution. He will continue medical management and return in the future for staged RCA PCI procedure. Addt'l Comments The patient's case was discussed and reviewed with the patient, Dr. Hawkins [facility] hospital staff, and Dr. Durand of the interventional cardiology staff. Comment: Time spent in the patient's overall evaluation, examination, review of cardiovascular imaging studies, documentation, discussion with the [facility] medical staff, etc.: 40 minutes. Procedure Criteria Type of Procedure Procedure Type: Elective Elective Risks - COVID COVID Risk Discussion: The surgeon/proceduralist and patient have discussed in detail the risk of exposure to and/or potential harm posed by the COVID-19 virus with having a surgery/procedure at this time versus the risk of delaying the surgery/procedure. It is not possible to know either the risk of delaying the surgery or procedure or chance of getting an infection with perfect accuracy, but a joint decision was made between the patient and the surgeon/proceduralist to proceed at this time with the scheduled surgery/procedure as indicated on the consent form.
--- NOTE | 2022-06-15 10:18 | CASEMGMT ---
Social Work This sr. social media & mobile manager noting that patient discharge has been entered. [facility], Edwin. Edwin states that patient total cots for medications is $110.61. This sr. social media & mobile manager to patient room. Introduced self and sr. social media & mobile manager role. Patient agreeable to speak with this sr. social media & mobile manager. This sr. social media & mobile manager broached conversation of prescription cost and provided patient with number listed above. Patient states to be able to afford medications but request for prescriptions to be sent to [facility] in [place], [place] as patient does not have a payment option with patient and patient lives in [place]. [facility] call to [facility], Edwin. This sr. social media & mobile manager updated Edwin on above information. Edwin to have scripts sent to [facility]. PLAN: Patient to discharge to home. Anthony SPIVEY, GUSTAVO
--- NOTE | 2022-06-15 10:24 | NURSING ---
reviewed discharge instructions voiced understanding
--- NOTE | 2022-06-16 12:56 | CRPHASE1 ---
Patient Communication PHII Cardiac Rehab Discussed with Patient:: Yes Guide to Cardiac Rehab Given to Patient:: Yes Cardiac Rehab Facility Choice List Given to Patient:: Yes Choice Program [facility] CR PHII:: Communication Given to CR, Refer to [facility] Choice Program Other:: Communication Given to CR, With permission faxed order and referral information Crime Scene Specialist:: James Durand - Patient was seen by paint laboratory technician staff but did not realize documentation needed completed. Refer Phase II Cardiac Rehab:: Yes Cardiac Rehabilitation Info Cardiac Rehabilitation Program Information: Cardiac Rehab The cardiac rehab team at [facility] consists of highly skilled exercise physiologists, nurses, respiratory therapists and physicians working together with you. Our purpose is to help you have a full recovery and achieve the goals you set for yourself. Over the years many of our patients have returned to activities they assumed they would never do again! We can help restore your confidence and motivation to make lifestyle changes that can have a significant impact on your health and quality of life! We can help answer questions and concerns you may have about exercise, lifestyle, medications, diet, stress and anxiety which are common following a hospitalization. WE monitor ECG and vital signs during exercise and discuss your progress with you and report to your physician(s). Cardiac Rehab is proven to help reduce readmissions, improve functional capacity and lower recurrence of problems with your heart. Our Cardiac Rehab program is Certified by the [place] [employer] Pulmonary [employer] (AACVPR) and Accredited by the [place] [employer] through our [facility]. You can contact us at . We invite you to call us with your questions or to get started in our program. If you have other questions or concerns be sure to ask your physician/provider during your follow-up visit. WE look forward to seeing you!
--- NOTE | 2022-06-16 12:59 | CRPH1.INSTRU ---
General Education CAD and cardiac anatomy and function:: Patient communicates acknowledgment Explanation of diagnoses and procedures:: Patient communicates acknowledgment Sign/Symptoms of TX:: Patient communicates acknowledgment Antiplatelet therapy: Patient communicates acknowledgment Proper use of NTG-SL: Patient communicates acknowledgment Emergency procedures and activation of EMS: Patient communicates acknowledgment Compliance of all prescribed medications: Patient communicates acknowledgment
== END 2022-06-15 10:30 | disposition home or self-care (01) | DRG 247 ==
LOC: ED 06-13 01:09 → PCU 06-13 06:32 → ICU 06-14 13:32
PROVIDERS: Internal Medicine; Internal Medicine Cardiovascular Disease; Admitting Provider Hospitalist; Emergency Provider Emergency Medicine; Visit Provider Internal Medicine
DX: I21.09 ST elevation (STEMI) myocardial infarction involving other coronary artery of anterior wall (principal); E11.65 Type 2 diabetes mellitus with hyperglycemia; I25.110 Atherosclerotic heart disease of native coronary artery with unstable angina pectoris; I44.4 Left anterior fascicular block; F17.200 Nicotine dependence, unspecified, uncomplicated; I25.2 Old myocardial infarction; E66.9 Obesity, unspecified; Z68.31 Body mass index [BMI] 31.0-31.9, adult; Z79.82 Long term (current) use of aspirin; Z79.899 Other long term (current) drug therapy; Z95.5 Presence of coronary angioplasty implant and graft
CPT/HCPCS: 36415; 71045; 80048; 80053; 80061; 82962; 83036; 84484; 85025; 85027; 85347; 85610; 85730; 92941; 93005; 93306; 93458; 99152; 99153; 99285; J7030; J7040; Q9967; A4216; C1725; C1769; C1874; C1887; C1894; C9606

== ENCOUNTER 2022-07-20 07:16 | Day surgery (SDC) | payer MEDICAID, SELFPAY ==
[2022-07-16 17:33] LABS: Absolute Lymphocyte Count 2.48 X10^3/uL (0.83-4.51); Absolute Neutrophil Count 3.9 X10^3/uL (2.0-7.7); Basophil# 0.04 X10^3/uL; Basophil% 0.6 % (0-1); Eosinophil# 0.16 X10^3/uL; Eosinophils% 2.2 % (0-5); Hematocrit 42.4 % (40-54); Hemoglobin 14.2 g/dL (13.0-16.5); Lymphocyte # 2.48 X10^3/ul (0.83-4.51); Lymphocyte % 34.6 % (19-41); Mean Corp Hgb Conc 33.5 g/dL (32-36); Mean Corpuscular Volume 86.7 fL (80-94); Mean Platelet Vol. 10.6 fl (6.2-12.0); Monocyte# 0.58 X10^3/uL; Monocyte% 8.1 % (0-10); NRBC Flagged by Analyzer 0 % (0-5); Neutrophil # 3.87 X10^3/uL (2.7-7.7); Neutrophil % 54.1 % (47-70); Platelet Count 200 K/mm3 (150-450); RBC Distribution Width CV 12.3 % (11.6-14.6); RBC Distribution Width SD 38.8 fl (35.1-43.9); Red Blood Count 4.89 M/mm3 (4.6-6.2); White Blood Count 7.2 K/mm3 (4.4-11.0)
[2022-07-16 18:26] LABS: Anion Gap 7 (5-15); BUN 15 mg/dL (7-18); BUN/Creat Ratio 20.1 RATIO (10-20); Calcium,Total 9.4 mg/dL (8.5-10.1); Chloride 109 mmol/L (98-107); Creatinine, Serum 0.75 mg/dL (0.70-1.30); EST Glomerular Filtration Rate 119 mL/min (>60); Est Glom Filt Rate - Afr Amer 144 mL/min (>60); Glucose 122 mg/dL (74-106); Potassium 3.8 mmol/L (3.5-5.1); Sodium Level 141 mmol/L (136-145)
[2022-07-19 14:03] VITALS: BMI 32.7
--- NOTE | 2022-07-20 09:54 | CL.I_ITS ---
Patient Name: NORBERTO REYES Study Date: 07/20/2022 Performing: James Durand MD Ht: 74 inches 187.96 cm : 1975 Wt: 255.01 lbs 115.67 kg Age: 47 Gender: male BSA: 2.41 PROCEDURE(S) PERFORMED IC12-(17156/C9600)SILVA W/WO PTCA, SINGLE CORONARY ARTERY CLINICAL PROFILE AND CO-MORBIDITIES Indications: Stable Known CAD Heart Failure: None Angina Classification Anginal Classification w/in 2 Weeks: No symptoms CAD Presentations: Other: Staged PCI CONCLUSIONS Successful SILVA Prox and Mid RCA using Resolute Edison 2.5x38 mm Successful SILVA distal RCA using Resolute Dirk 2.5x12 mm RECOMMENDATIONS ASA Indefinitley Plavix for at least 12 months DESCRIPTION OF PROCEDURE The patient arrived to the procedure lab. The risks and benefits of the procedure as well as a full description of our services here and current unavailability of surgical backup were fully explained to the patient and/or their significant other prior to the catheterization. The Timeout was completed, verifying the correct patient and procedure. The patient's procedural site was prepped and draped in the usual fashion. Local anesthetic was given subcutaneously to right radial region with Lidocaine 2%. Using a modified Seldinger technique, arterial access was obtained via the right radial artery, a 6Fr sheath was inserted.. JR4 Guide catheter was inserted and engaged into the RCA. Runthrough Guide wire was advanced to the RCA. Resolute Dirk 2.5 x 38 Drug Eluting stent was inserted. Drug Eluting stent was advanced across the lesion in the right coronary, Proximal. Angiogram performed post stent deployment. NC Emerge 2.5 x 20 Balloon catheter was inserted. Balloon catheter was advanced across lesion in the right coronary, Proximal. Angiogram performed pre balloon dilatation. Angiogram performed post balloon dilatation. Angiogram performed post balloon dilatation. NC Emerge 2.75 x 12 Balloon catheter was inserted. Balloon catheter was advanced across lesion in the right coronary, Proximal. Angiogram performed pre balloon dilatation. Resolute Dirk 2.5 x 12 Drug Eluting stent was inserted. Drug Eluting stent was removed intact, failed to cross lesion Choice Guide wire was inserted as a abhishek wire Resolute Dirk 2.5 x 12 Drug Eluting stent was inserted. Drug Eluting stent was removed intact, failed to cross lesion Nc Emerge 2.75 x 12 Balloon catheter was inserted. Balloon catheter was advanced across lesion in the right coronary, distal. PTCA balloon inflated at 14 atms for 10 secs. PTCA balloon inflated at 16 atms for 10 secs. PTCA balloon inflated at 14 atms for 8 secs. Resolute Dirk 2.5 x 12 Drug Eluting stent was inserted. Drug Eluting stent was advanced across the lesion in the right coronary, distal. Angiogram performed pre stent deployment. NC Emerge 2.5 x 12 Balloon catheter was inserted. Balloon catheter was advanced across lesion in the right coronary, distal. Angiogram performed post balloon dilatation. The arterial sheath was pulled and a TR Band was applied for hemostasis INTERVENTION INFORMATION LESION SITE: RCA (Proximal) Lesion Complexity: High/C, lesion length: 36 mm Pre Stenosis: 80 % Pre intervention SARAH flow: 3 Post Stenosis: 0 % Post intervention SARAH flow: 3 Lesion Devices: Terumo .014 180cm Runthrough Extra Floppy straight Cordis 6 Fr JR4 100cm Guide Catheter Medtronic Resolute Dirk RX SILVA 2.50x38 Tomas Sci NC EMERGE MR 2.50x20 BALLOON Tomas Sci NC EMERGE MR 2.75x12 BALLOON LESION SITE: RCA (Distal) Lesion Complexity: Non-High/Non-C, lesion length: 11 mm Pre Stenosis: 70 % Pre intervention SARAH flow: 3 Post Stenosis: 0 % Post intervention SARAH flow: 3 Lesion Devices: Cordis 6 Fr JR4 100cm Guide Catheter Tomas Sci NC EMERGE MR 2.75x12 BALLOON Medtronic Resolute Dirk RX SILVA 2.5x12 Tomas Sci .014 182cm Choice Xtra Support wire Tomas Sci NC EMERGE MR 2.50x12 BALLOON COMPLICATIONS No Complications PROCEDURE MEDICATIONS Versed 1 mg IV Fentanyl 50 mcg IV Oxygen: 2 L/min via nasal cannula Heparin given IA 07/20/2022 08:20:41 Heparin 7000 unit(s) IV 07/20/2022 08:34:22 Heparin 4000 unit(s) IV 07/20/2022 09:21:11 Nitro 200 mcg IC 07/20/2022 08:44:17 Plavix 300 mg PO 07/20/2022 09:15:53 Verapamil 2.5mg, Ntg 200mcgs, 2000 units of Heparin given IA 07/20/2022 08:20:41 IV Bolus: .9 NaCl 500 ml total 07/20/2022 08:39:28 SUMMARY OF HEMODYNAMIC DATA Time AIR REST ECG 07:35:34 AO 132/71 (94) SA 08:38:03 Signed By James Durand MD On 07/20/2022 09:54:17 James Durand MD
--- NOTE | 2022-07-20 10:08 | CRPHASE1 ---
Patient Communication Former Patient:: Phase I Guide to Cardiac Rehab Given to Patient:: Yes Cardiac Rehab Facility Choice List Given to Patient:: Yes Choice Program [facility] CR PHII:: Communication Given to CR Rn Cardiovascular:: James Durand Phase II Cardiac Rehab:: Yes Sessions:: 36 sessions - 3 days/wk, 12 weeks Cardiac Rehabilitation Info Cardiac Rehabilitation Program Information: Cardiac Rehab The cardiac rehab team at [facility] consists of highly skilled exercise physiologists, nurses, respiratory therapists and physicians working together with you. Our purpose is to help you have a full recovery and achieve the goals you set for yourself. Over the years many of our patients have returned to activities they assumed they would never do again! We can help restore your confidence and motivation to make lifestyle changes that can have a significant impact on your health and quality of life! We can help answer questions and concerns you may have about exercise, lifestyle, medications, diet, stress and anxiety which are common following a hospitalization. WE monitor ECG and vital signs during exercise and discuss your progress with you and report to your physician(s). Cardiac Rehab is proven to help reduce readmissions, improve functional capacity and lower recurrence of problems with your heart. Our Cardiac Rehab program is Certified by the [place] [employer]monary [employer] (AACVPR) and Accredited by the [employer] through our [facility]. You can contact us at . We invite you to call us with your questions or to get started in our program. If you have other questions or concerns be sure to ask your physician/provider during your follow-up visit. WE look forward to seeing you!
--- NOTE | 2022-07-20 10:10 | CRPH1.INSTRU ---
General Education CAD and cardiac anatomy and function:: Patient communicates acknowledgment Explanation of diagnoses and procedures:: Patient communicates acknowledgment Sign/Symptoms of MD:: Patient communicates acknowledgment Antiplatelet therapy: Patient communicates acknowledgment Proper use of NTG-SL: Patient communicates acknowledgment Emergency procedures and activation of EMS: Patient communicates acknowledgment Smoking Patient Nicotine/Smoking Risk Factors Are:: Cigarettes Recommendations Include:: Smoking cessation strategies/Smoking packet Nicotine/Smoking Response Code:: Patient communicates acknowledgment Dyslipidemia Dyslipidemia Response Code:: Patient communicates acknowledgment Overweight/Obesity Patient Overweight/Obesity Risk Factors Are:: BMI Normal [18-25 & < 65 years old] Overweight/Obesity:: Patient communicates acknowledgment Hypertension Patient Hypertension Risk Factors Are:: No documented hx of HTN Heart Disease Patient Heart Disease Risk Factors Are:: Previous cardiac event Recommendations Include:: Educated family members of their risk Heart Disease Response Code:: Patient communicates acknowledgment Diabetes Patient Diabetes Risk Factors Are:: Elevated blood sugars Recommendations Include:: Maintain fasting blood sugars 70-110 md/dL Diabetes:: Patient communicates acknowledgment Metabolic Syndrome Recommendations Include:: Patient is diabetic Metabolic Syndrome Response Code:: Patient communicates acknowledgment Sedentary Recommendations Include:: Benefits of regular exercise Sedentary Response Code:: Patient communicates acknowledgment Stress Patient Stress Risk Factors Are:: Patient denies stress as a risk factor
[2022-07-20 11:14] LABS: ACT Activated Clotting Time 197 sec (74-137)
[2022-07-21 15:27] LABS: ACT Activated Clotting Time 197 sec (74-137)
== END 2022-07-20 14:10 | disposition home or self-care (01) ==
PROVIDERS: Nurse Practitioner Gerontology; Referring Provider Internal Medicine Cardiovascular Disease; Visit Provider Internal Medicine Cardiovascular Disease
DX: I25.10 Atherosclerotic heart disease of native coronary artery without angina pectoris (principal); E11.9 Type 2 diabetes mellitus without complications; E78.5 Hyperlipidemia, unspecified; R03.0 Elevated blood-pressure reading, without diagnosis of hypertension; I25.2 Old myocardial infarction; F17.200 Nicotine dependence, unspecified, uncomplicated; Z79.82 Long term (current) use of aspirin; Z79.02 Long term (current) use of antithrombotics/antiplatelets; Z79.84 Long term (current) use of oral hypoglycemic drugs; Z79.899 Other long term (current) drug therapy; Z95.5 Presence of coronary angioplasty implant and graft
CPT/HCPCS: 36415; 80048; 85025; 85347; 92928; 93005; 99152; 99153; C1874; J7040; Q9967; C1725; C1769; C1887; C1894; C9600

== ENCOUNTER 2022-07-23 23:54 | Emergency (ER) | payer MEDICAID, SELFPAY ==
[2022-07-23 23:54] VITALS: TEMP 36.8; BMI 32.8
[2022-07-24] VITALS: BP 143/74; PULSE 71; RESP 18; O2SAT 96
--- NOTE | 2022-07-24 00:53 | EKG12_ITS ---
Test Reason : CP Blood Pressure : / mmHG Vent. Rate : 069 BPM Atrial Rate : 069 BPM P-R Int : 144 ms QRS Dur : 096 ms QT Int : 396 ms P-R-T Axes : 046 -41 018 degrees QTc Int : 424 ms Normal sinus rhythm Left axis deviation Inferior infarct , age undetermined Abnormal ECG Confirmed by STEVE FERNANDEZ ([id number]), editorial director MISHA WILSON ([id number]) on 07/27/2022 7:09:54 AM Referred By: Confirmed By:STEVE FERNANDEZ
[2022-07-24 01:02] VITALS: O2SAT 94
[2022-07-24 01:07] LABS: Absolute Lymphocyte Count 3.01 X10^3/uL (0.83-4.51); Absolute Neutrophil Count 4.8 X10^3/uL (2.0-7.7); Basophil# 0.05 X10^3/uL; Basophil% 0.6 % (0-1); Eosinophils% 2.3 % (0-5); Hematocrit 40.2 % (40-54); Hemoglobin 13.2 g/dL (13.0-16.5); Lymphocyte # 3.01 X10^3/ul (0.83-4.51); Lymphocyte % 34.3 % (19-41); Mean Corp Hgb Conc 32.8 g/dL (32-36); Mean Corpuscular Hgb 28.6 pg (27.0-32.0); Mean Platelet Vol. 10.7 fl (6.2-12.0); Monocyte# 0.72 X10^3/uL; Monocyte% 8.2 % (0-10); NRBC Flagged by Analyzer 0 % (0-5); Neutrophil # 4.78 X10^3/uL (2.7-7.7); Neutrophil % 54.4 % (47-70); Platelet Count 203 K/mm3 (150-450); RBC Distribution Width CV 12.4 % (11.6-14.6); RBC Distribution Width SD 39.2 fl (35.1-43.9); Red Blood Count 4.62 M/mm3 (4.6-6.2); White Blood Count 8.8 K/mm3 (4.4-11.0)
--- NOTE | 2022-07-24 01:10 | RAD_ITS ---
EXAM: XR CHEST, 1 VIEW CLINICAL INDICATION: chest pain TECHNIQUE: Frontal view of the chest. This report was created using [employer] report generation technology. COMPARISON: 06/13/2022. FINDINGS: LUNGS AND PLEURAL SPACES: Unremarkable. No consolidation or edema. No pneumothorax. No effusion. HEART: Unremarkable. Cardiac silhouette not enlarged. MEDIASTINUM: Central airways and mediastinal contour are unremarkable. BONES/JOINTS: Unremarkable. SOFT TISSUES: Unremarkable. RAD/Chest 1 View (Portable) IMPRESSION: No acute cardiopulmonary abnormality. Electronically Signed: Rajat Mitchell MD at 1:30 EDT ,
[2022-07-24 01:26] LABS: Anion Gap 4 (5-15); BUN 15 mg/dL (7-18); BUN/Creat Ratio 17.4 RATIO (10-20); Chloride 110 mmol/L (98-107); Creatinine, Serum 0.86 mg/dL (0.70-1.30); EST Glomerular Filtration Rate 101 mL/min (>60); Est Glom Filt Rate - Afr Amer 122 mL/min (>60); Estimated Creatinine Clearance 122.13 ml/min; Glucose 104 mg/dL (74-106); Sodium Level 140 mmol/L (136-145); Troponin-I HS (w/2H Reflex) 51 pg/mL (3.0-78.0)
--- NOTE | 2022-07-24 01:32 | CT_ITS ---
STUDY: CTA CHEST REASON FOR EXAM: Male, 47 years old. chest pain RADIATION DOSAGE (If Supplied By Facility): CTDIvol = ( 12.58 ) mGy, DLP = ( 523.58 ) mGycm TECHNIQUE: The examination was performed with the intravenous administration of IV 100mL Isovue-370. Post-processing of the angiographic images was performed, with multiplanar reformation and 3D reconstruction. Individualized dose optimization techniques were used for this CT. COMPARISON: 05/23/20. FINDINGS: Normal enhancement of the bilateral pulmonary arteries. There is no demonstrated pulmonary embolism. No main pulmonary arterial enlargement. No aortic dissection or aneurysmal dilatation. Severe multivessel coronary atherosclerosis. Normal heart and pericardium. Numerous scattered subcentimeter mediastinal and bilateral hilar lymph nodes. Esophagus is unchanged from May 23, 2020. No hiatal hernia. Mild bilateral peribronchial thickening. No airspace consolidation, effusion, pneumothorax. Mild dependent atelectasis. No acute osseous finding. Nonspecific coarse calcifications. CT/CTA Chest W/WO Contrast IMPRESSION: No pulmonary embolism or evidence of acute airspace disease. Mild peribronchial thickening which can be seen with bronchitis / bronchiolitis. Nonspecific subcentimeter mediastinal and hilar [lymph nodes. Severe multivessel coronary atherosclerosis. Electronically Signed: Sean Capps MD at 3:38 EDT ,
[2022-07-24] MEDS: 0.9% Normal Saline 1,000 ML 999 ML IV (01:49)
[2022-07-24] MEDS: Ondansetron 4 MG/2 ML Vial IV (01:50)
[2022-07-24] MEDS: Morphine 4 MG/ML Syringe IV (01:52)
[2022-07-24] MEDS: Orphenadrine 60 MG/2 ML Ampul IV (01:54)
[2022-07-24 02:11] VITALS: BP 128/79; PULSE 75; RESP 18; O2SAT 96
--- NOTE | 2022-07-24 03:54 | EX.ED.DYSGE1 ---
HPI History of Present Illness Chief Complaint: Chest Pain Narrative Narrative: Patient is a 47-year-old male with past medical history of hyperlipidemia CAD requiring stent placement and pnj-zhbntab-spfkminna diabetes. He states that he was told he had a heart attack a few weeks ago and had a few stents placed. He states that at that time they told him there was further blockage that would need stents in another few weeks. He states those replaced just a few days ago. He states he was at home today when he started noticing some right-sided chest discomfort. He states that is the side they did his heart catheterization on. He reports he tried vrge-owj-gjwozpr medications without symptom improvement and therefore comes to the hospital for evaluation. He denies any recent trauma fevers chills nausea vomiting diaphoresis or shortness of breath [facility] Medical History (Updated 07/24/22 @ 08:[address] Vinay Faulkner, ) Atherosclerosis of coronary artery without angina pectoris CAD (coronary artery disease) History of CAD (coronary artery disease) NSTEMI (non-ST elevated myocardial infarction) Home Medications aspirin 81 mg tablet,delayed release 81 mg PO BREAKFAST #90 tabs 06/15/22 [Rx Last Taken 07/20/22] clopidogrel 75 mg tablet 75 mg PO DAILY #90 tabs 06/15/22 [Rx Last Taken 07/20/22] glimepiride 2 mg tablet (Amaryl) 2 mg PO DAILY #90 tabs 06/15/22 [Rx Last Taken Unknown] lisinopril 2.5 mg tablet 2.5 mg PO DAILY #90 tabs 06/15/22 [Rx Last Taken 07/20/22] metformin 1,000 mg tablet 1,000 mg PO BID #180 tabs 06/15/22 [Rx Last Taken 07/19/22] metoprolol tartrate 25 mg tablet 25 mg PO BID #180 tabs 06/15/22 [Rx Last Taken 07/20/22] atorvastatin 40 mg tablet 40 mg PO QHS #30 tabs 07/16/22 [Rx Last Taken Unknown] oxycodone-acetaminophen 5 mg-325 mg tablet (Percocet) 1 tab PO Q6H PRN pain 3 days #12 tabs 07/24/22 [Rx Last Taken Unknown] Allergy/AdvReac Type Severity Reaction Status Date / Time No Known Allergies Allergy Verified 07/23/22 23:54 Family History Other Heart disease Surgical History History of coronary artery stent placement (07/20/22) Social History household members: family housing: house Smoking Status: Current every day smoker tobacco type: cigarettes alcohol intake: current alcohol intake frequency: holidays/special occasions only Alcohol type: wine substance use type: does not use caffeine: Yes Type: coffee Number of servings: 5 ROS ROS ED Constitutional Constitutional ED: Denies chills or fever(s) Eyes Eyes: Denies change in vision ENT ENT ED: Denies sore throat Cardiovascular Cardiovascular: Reports chest pain; Denies palpitations or racing heartbeat Respiratory/Chest Respiratory/Chest: Denies cough or dyspnea Gastrointestinal Gastrointestinal: Denies abdominal pain, diarrhea, nausea or vomiting Genitourinary Genitourinary ED: Denies dysuria Musculoskeletal Musculoskeletal: Denies myalgias Integumentary Denies rash Neurologic Neurologic: Denies headache(s) Hematologic/Lymphatic Hematologic/Lymphatic: Reports easy bleeding and easy bruising EXAM Physical Exam Const Vital Signs: 07/23/22 23:54 07/23/22 23:57 07/24/22 00:00 Temperature 98.2 F Temperature Source Oral Pulse Rate 71 Respiratory Rate 18 Respiratory Effort Normal Non-Labored Blood Pressure 143/74 H Blood Pressure Mean 97 Pulse Ox 96 Oxygen Delivery Method Room Air 07/24/22 01:02 07/24/22 02:11 07/24/22 03:59 Temperature Temperature Source Pulse Rate 75 77 Respiratory Rate 18 20 H Respiratory Effort Blood Pressure 128/79 H 126/77 H Blood Pressure Mean 95 Pulse Ox 94 96 99 Oxygen Delivery Method Room Air Room Air Positive well nourished and well developed General Appearance ED: well developed Eyes PERRL and EOMs intact bilaterally General Eye ED: Negative for scleral icterus Neck supple and No no JVD Chest Wall palpation of chest normal Chest Narrative: No bony deformity or crepitance noted Resp normal respiratory effort Resp Narrative: Breath sounds are diminished throughout with faint expiratory wheeze consistent with history of smoking but no signs of respiratory distress Cardio regular rate and regular rhythm Rate: other Other Details: Radial pulses are plus 2 out of 4 bilaterally are equal and symmetric Carotid pulses are equal and symmetric as well GI normal to inspection, nondistended, normoactive bowel sounds, non-tender, non-distended and no masses GI Narrative: No voluntary guarding or rigidity no pulsatile mass or fluid wave Auscultation: normoactive bowel sounds Palpation: soft Extremity normal to inspection Extremity Narrative: No asymmetric edema no pitting edema negative Homans' sign bilaterally of the lower extremities Right upper extremity is neurovascular intact. No obvious soft tissue changes of the right wrist to suggest infection or palpable aneurysm noted Neuro oriented x3 and CN's II-XII intact bilaterally Sensorium / Orientation: alert Psych mental status grossly normal Skin no rashes or lesions noted General Skin Exam: Negative for jaundice MDM MDM MDM Narrative Medical decision making narrative: Patient presented to the ER with stable vitals and reported pain in his right chest wall that did not occur after trauma or excessive activity. Differential includes acute coronary syndrome especially with his past history of recent stent placement. There is also concern for an aneurysm or pseudoaneurysm forming. Possibility of infectious process such as pneumonia or even a pneumothorax is possible. As he is also had 2 recent procedures a pulmonary embolus is in the differential. Secondary to this patient had basic blood work obtained as well as a CTA. Labs showed a troponin of 51 which compared to recent troponins has trended down from 118 going against acute coronary syndrome. As patient's had constant pain for over 6 hours the fact that this troponin is normal and trending down from previous goes against active heart damage. A CTA was obtained because of the recent procedure and reveals no PE or pneumothorax or dissection or signs of aneurysm. On reevaluation patient reports there has been improvement of his discomfort and therefore as work-up reveals no signs of acute ACS pulm embolus pneumothorax dissection or aneurysm and pain is improving he is otherwise safe for discharge History & Record Review Discussion w/independent historian: Patient Lab Data Attestation: I reviewed the patient's lab results. Labs: Laboratory Results - last 24 hr 07/24/22 07/24/22 00:05 00:05 WBC 8.8 RBC 4.62 Hgb 13.2 Hct 40.2 MCV 87.0 MCH 28.6 MCHC 32.8 RDW Std Deviation 39.2 RDW Coeff of Sebastián 12.4 Plt Count 203 MPV 10.7 Immature Gran % (Auto) 0.200 Neut % (Auto) 54.4 Lymph % (Auto) 34.3 [place] % (Auto) 8.2 Eos % (Auto) 2.3 Baso % (Auto) 0.6 Absolute Neuts (auto) 4.8 Absolute Lymphs (auto) 3.01 Nucleated RBC % 0 Sodium 140 Potassium 4.0 Chloride 110 H Carbon Dioxide 26.0 Anion Gap 4 L BUN 15 Creatinine 0.86 Estim Creat Clear Calc 122.13 Est GFR (MDRD) Af Amer 122 Est GFR (MDRD) Non-Af 101 BUN/Creatinine Ratio 17.4 Glucose 104 Calcium 9.0 Troponin I High Sens 51 Radiography Diagnostic Testing: Clinical Impression(s) from Imaging Studies Chest X-Ray 07/24/22 01:10 IMPRESSION: No acute cardiopulmonary abnormality. Electronically Signed: Rajat Mitchell MD at 1:30 EDT , Chest CTA 07/24/22 01:32 IMPRESSION: No pulmonary embolism or evidence of acute airspace disease. Mild peribronchial thickening which can be seen with bronchitis / bronchiolitis. Nonspecific subcentimeter mediastinal and hilar [lymph nodes. Severe multivessel coronary atherosclerosis. Electronically Signed: Sean Capps MD at 3:38 EDT , Chest x-ray as interpreted by the emergency medicine physician reveals no acute infiltrate pneumothorax or pleural effusion Discharge Plan Triage Chief Complaint: Chest Pain ED Provider: Vinay Faulkner Dx/Rx/DC Orders Clinical Impression: Nonspecific chest pain, Post-operative pain, Smoker, Diabetes mellitus Instructions: ED Chest Pain, Uncertain Cause Prescriptions: New oxycodone-acetaminophen [Percocet] 5-325 mg tablet 1 tab PO Q6H PRN (Reason: pain) 3 Days Qty: 12 0RF No Action atorvastatin 40 mg tablet 40 mg PO QHS Qty: 30 11RF clopidogrel 75 mg Tablet 75 mg PO DAILY Qty: 90 3RF aspirin 81 mg Tablet,Delayed Release (Dr/Ec) 81 mg PO BREAKFAST Qty: 90 0RF lisinopril 2.5 mg Tablet 2.5 mg PO DAILY Qty: 90 0RF metoprolol tartrate 25 mg Tablet 25 mg PO BID Qty: 180 0RF metformin 1,000 mg tablet 1,000 mg PO BID Qty: 180 0RF glimepiride [Amaryl] 2 mg tablet 2 mg PO DAILY Qty: 90 0RF Primary Care Provider: Care Physician,No Primary Referrals: Care Physician,No Primary [Primary Care Provider] - Activity Restrictions/Additional Instructions: Please follow-up with your family doctor and/or your research assistant member for repeat evaluation. Your EKG is normal sinus rhythm without signs of heart attack or lack of blood flow. Your heart marker is normal today going against cardiac damage. Your CT scan reveals no blood clot or tear of a blood vessel. Disposition Disposition: Home, Self Care Discharge Date/Time: 07/24/22 04:03
[2022-07-24] MEDS: oxyCODONE 5 MG Tablet 10 MG PO (03:58)
[2022-07-24 03:59] VITALS: BP 126/77; PULSE 77; RESP 20; O2SAT 99
== END 2022-07-24 04:03 | disposition home or self-care (01) ==
PROVIDERS: Emergency Provider Emergency Medicine; Visit Provider Emergency Medicine
DX: R07.9 Chest pain, unspecified (principal); E11.9 Type 2 diabetes mellitus without complications; I25.10 Atherosclerotic heart disease of native coronary artery without angina pectoris; G89.18 Other acute postprocedural pain; Z95.5 Presence of coronary angioplasty implant and graft; F17.210 Nicotine dependence, cigarettes, uncomplicated; E78.5 Hyperlipidemia, unspecified; Z79.84 Long term (current) use of oral hypoglycemic drugs
CPT/HCPCS: 71045; 71275; 80048; 84484; 85025; 93005; 96361; 96374; 96375; 99285; J7030; Q9967; A4216; J2405

== ENCOUNTER → 2022-08-05 | Outpatient (CLI) | payer MEDICAID, SELFPAY ==
--- NOTE | 2022-08-05 13:50 | RAD_ITS ---
INDICATION: Right Shoulder pain EXAMINATION/TECHNIQUE: X-RAY - RIGHT XR Shoulder Min 2 Views 4 VIEWS COMPARISON: FINDINGS: SOFT TISSUES: No soft tissue swelling or gas. No radiopaque foreign body. BONES/JOINTS: Mild acromioclavicular hypertrophy, glenohumeral joint intact. RAD/Shoulder min 2 Views IMPRESSION: Mild acromioclavicular hypertrophy. Electronically Signed: Baljinder Emery MD, DESMOND at 17:20 EDT ,
--- NOTE | 2022-08-05 14:50 | VDUE_ITS ---
Reason For Study: Arm Pain Right Proximal Left Proximal Right jugular vein is spontaneous, widely Left subclavian vein is spontaneous, widely patent, phasic, with no intraluminal patent, phasic, with no intraluminal echogenicity noted. echogenicity noted. Right subclavian vein is spontaneous, widely patent, phasic, with no intraluminal echogenicity noted. Right Lower Arm Right radial vein is compressible. Right ulnar vein is compressible. Right Arm Right axillary vein is spontaneous, patent, phasic, competent, compressible and demonstrates augmentation. Right brachial vein is compressible. Right cephalic vein is compressible. Right basilic vein is compressible. Patient Safety Preliminary results delivered to Thais TREJO. VL/Venous Duplex US, Unilateral Interpretation Summary No evidence for acute deep venous thrombosis[right] upper extremity with patent and compressible cephalic and basilic veins. Normal flow patterns left subclavian vein Ordering Physician: Thais Cm Referring Physician: James Durand MD Performed By: Richy Cooper RVT ???
== END | disposition home or self-care (01) ==
PROVIDERS: Referring Provider Nurse Practitioner Gerontology; Visit Provider Nurse Practitioner Gerontology
DX: M25.511 Pain in right shoulder (principal); M79.601 Pain in right arm
CPT/HCPCS: 73030; 93931; 93971

== ENCOUNTER → 2022-08-13 | Outpatient (CLI) | payer MEDICAID, SELFPAY ==
[2022-08-13 12:26] LABS: Anion Gap 7 (5-15); BUN 15 mg/dL (7-18); BUN/Creat Ratio 18.4 RATIO (10-20); Calcium,Total 8.9 mg/dL (8.5-10.1); Chloride 108 mmol/L (98-107); Creatinine, Serum 0.81 mg/dL (0.70-1.30); EST Glomerular Filtration Rate 107 mL/min (>60); Est Glom Filt Rate - Afr Amer 130 mL/min (>60); Glucose 293 mg/dL (74-106); Potassium 4.3 mmol/L (3.5-5.1); Sodium Level 142 mmol/L (136-145)
== END | disposition home or self-care (01) ==
LOC: LAB 11:29
PROVIDERS: Referring Provider Internal Medicine Cardiovascular Disease; Visit Provider Internal Medicine Cardiovascular Disease
DX: I25.10 Atherosclerotic heart disease of native coronary artery without angina pectoris (principal); Z95.5 Presence of coronary angioplasty implant and graft
CPT/HCPCS: 36415; 80048

== ENCOUNTER 2022-10-08 15:53 | Emergency (ER) | payer MEDICAID, SELFPAY ==
[2022-10-08 15:56] VITALS: BP 157/91; PULSE 101; RESP 20; TEMP 36.6; O2SAT 95; BMI 31.7
--- NOTE | 2022-10-08 16:17 | CT_ITS ---
EXAM: CT ANGIOGRAPHY CHEST, ABDOMEN AND PELVIS WITH INTRAVENOUS CONTRAST CLINICAL INDICATION: Chest and abdominal pain TECHNIQUE: Helically acquired angiography images were obtained of the chest, abdomen and pelvis with intravenous contrast. This CT exam was performed using one or more of the following dose reduction techniques: automated exposure control, adjustment of the mA and/or kV according to patient size, and/or use of iterative reconstruction technique. MIP reconstructed images were created and reviewed. CONTRAST: IV 100mL [id number] COMPARISON: No relevant prior studies available. FINDINGS: VASCULATURE: AORTA: No acute findings. Normal in caliber. No dissection. PULMONARY ARTERIES: Unremarkable. Normal in caliber. No obvious central pulmonary embolism although this study was not performed with the pulmonary embolism protocol. GREAT VESSELS OF AORTIC ARCH: Unremarkable. Normal in caliber. No dissection. CELIAC TRUNK AND MESENTERIC ARTERIES: No acute findings. No occlusion or significant stenosis. No dissection. RENAL ARTERIES: No acute findings. No occlusion or significant stenosis. No dissection. ILIAC ARTERIES: No acute findings. No occlusion or significant stenosis. No dissection. CHEST: LUNGS AND PLEURAL SPACES: Unremarkable. No mass. No consolidation or edema. No pleural effusion or thickening. No pneumothorax. HEART: Unremarkable. Heart size is normal. No pericardial effusion. MEDIASTINUM: Unremarkable. No mediastinal or hilar adenopathy. Esophagus is unremarkable. No hiatal hernia. THYROID: Unremarkable. No thyroid lesions. ABDOMEN: LIVER: Homogeneous. No focal mass. Punctate calcifications consistent with old granulomatous disease. GALLBLADDER AND BILE DUCTS: Unremarkable. No calcified gallstones. No gallbladder distention or wall edema. No intra- or extrahepatic biliary ductal dilation. PANCREAS: Unremarkable. No focal cystic or solid mass. SPLEEN: Unremarkable. Normal size without focal cystic or solid mass. ADRENALS: Unremarkable. No nodules. KIDNEYS AND URETERS: Unremarkable. Normal renal size and position. No hydronephrosis. STOMACH AND BOWEL: Unremarkable. No stomach or bowel distention. No focal inflammatory change. PELVIS: APPENDIX: No evidence of acute appendicitis. BLADDER: Unremarkable. REPRODUCTIVE: Unremarkable as visualized. No mass. CHEST, ABDOMEN and PELVIS: INTRAPERITONEAL SPACE: Unremarkable. No ascites or other fluid collection. No free air. BONES/JOINTS: Unremarkable. No suspicious lytic or blastic abnormality. SOFT TISSUES: Unremarkable. No discrete abdominal or pelvic wall hernia. LYMPH NODES: Unremarkable. No enlarged lymph nodes. CT/CTA Chst, Abd, Pel W and/or WO IMPRESSION: Old granulomatous disease, otherwise negative CTA of the chest, abdomen or pelvis. No aortic dissection. Electronically Signed: Evelyn Byrd MD at 18:06 EDT Reading Location ID and State: [id number] / Tel , Service support ,
--- NOTE | 2022-10-08 16:17 | EKG12_ITS ---
Test Reason : FLANK PAIN Blood Pressure : / mmHG Vent. Rate : 077 BPM Atrial Rate : 077 BPM P-R Int : 144 ms QRS Dur : 090 ms QT Int : 364 ms P-R-T Axes : 038 -48 025 degrees QTc Int : 411 ms Normal sinus rhythm Left anterior fascicular block Cannot rule out Inferior infarct , age undetermined Abnormal ECG Confirmed by DILLON DUBON, JUDITH ([id number]), slot editor MISHA WILSON ([id number]) on 10/11/2022 12:47:40 PM Referred By: LIANNA Confirmed By:JUDITH CARRANZA MD
--- NOTE | 2022-10-08 16:19 | EX.ED.DYSGE1 ---
HPI History of Present Illness Chief Complaint: Abd Pain Informant: patient Narrative Narrative: Patient presents with what he describes as abdominal pain. Patient states that about 4 months ago he started having episodes of this. He describes pain in the epigastrium that wraps around both sides of his ribs and goes to the mid upper back. When he first started getting it it would last about 20 minutes. But the last week he states it has never gone away. But he also points that it goes up into his chest. He states that he gets lightheaded when he walks and he gets short of breath when he walks because of the pain not because he is actually short of breath. He denies fevers or chills. He denies coughing. He denies change in his bowel habits or blood in the stool. He states when the pain is bad he feels nauseated but he has not been vomiting. With further discussion I find out this patient also had heart disease had stents placed in June has diabetes and has not been taking his aspirin, atorvastatin, Plavix, glimepiride, lisinopril, metformin, or metoprolol for at least 3 weeks. He is also still smoking and was counseled to quit. He does not drink alcohol at all. He denies any abdominal surgeries. [facility] Medical History Atherosclerosis of coronary artery without angina pectoris CAD (coronary artery disease) Diabetes mellitus History of CAD (coronary artery disease) NSTEMI (non-ST elevated myocardial infarction) Type 2 diabetes mellitus Home Medications aspirin 81 mg tablet,delayed release 81 mg PO BREAKFAST #90 tabs 06/15/22 [Rx Last Taken 07/20/22] clopidogrel 75 mg tablet 75 mg PO DAILY #90 tabs 06/15/22 [Rx Last Taken 07/20/22] glimepiride 2 mg tablet (Amaryl) 2 mg PO DAILY #90 tabs 06/15/22 [Rx Last Taken Unknown] metformin 1,000 mg tablet 1,000 mg PO BID #180 tabs 06/15/22 [Rx Last Taken 07/19/22] metoprolol tartrate 25 mg tablet 25 mg PO BID #180 tabs 06/15/22 [Rx Last Taken 07/20/22] atorvastatin 40 mg tablet 40 mg PO QHS #30 tabs 07/16/22 [Rx Last Taken Unknown] lisinopril 10 mg tablet 10 mg PO DAILY #30 tabs 08/05/22 [Rx Last Taken Unknown] clopidogrel 75 mg tablet (Plavix) 75 mg PO DAILY #30 tabs 10/08/22 [Rx Last Taken Unknown] dicyclomine 20 mg tablet 20 mg PO TID PRN abdominal pain #20 tabs 10/08/22 [Rx Last Taken Unknown] esomeprazole magnesium 20 mg capsule,delayed release (Nexium) 20 mg PO DAILY #30 caps 10/08/22 [Rx Last Taken Unknown] glimepiride 2 mg tablet 2 mg PO DAILY #30 tabs 10/08/22 [Rx Last Taken Unknown] lisinopril 10 mg tablet 10 mg PO DAILY #30 tabs 10/08/22 [Rx Last Taken Unknown] metformin 1,000 mg tablet 1,000 mg PO BID #60 tabs 10/08/22 [Rx Last Taken Unknown] metoprolol tartrate 25 mg tablet 25 mg PO BID #60 tabs 10/08/22 [Rx Last Taken Unknown] Allergy/AdvReac Type Severity Reaction Status Date / Time No Known Allergies Allergy Verified 08/05/22 13:12 Family History Other Heart disease Surgical History History of coronary artery stent placement (07/20/22) Social History household members: family housing: house Smoking Status: Current every day smoker tobacco type: cigarettes alcohol intake: current alcohol intake frequency: holidays/special occasions only Alcohol type: wine substance use type: does not use caffeine: Yes Type: coffee Number of servings: 5 ROS ROS ED ROS Narrative A complete review of systems was performed and is negative except as documented in the history of present illness. Some specific details below. Constitutional: No recent fevers or chills. No malaise. EYE: No visual complaints or pain. ENT: No difficulty swallowing. No swelling. No pain. No GERD. CV: Patient states this pain is different than his heart attack pain but he does describe tight pain going up into his chest originating in the epigastrium. Respiratory: No dyspnea. No hemoptysis. No difficulty taking breaths. See history of present illness. GI: Please see history of present illness. : No frequency dysuria or hematuria. Musculoskeletal: No recent trauma. No pains. No radiation into the legs. Skin: No rash. Nondiaphoretic. Neuro: No weakness or numbness. Endocrine: No polyuria or polydipsia. EXAM Physical Exam Narrative Exam Narrative: CONSTITUTIONAL: Patient is nontoxic in appearance. The patient looks comfortable. HEENT: No notable trauma. Mucous membranes still moist. No sinus tenderness. No indication of pain with swallowing. EYES: No conjunctival injection. No proptosis. No icterus CARDIOVASCULAR: Regular rate. Regular rhythm. No notable murmur. No JVD. In triage his heart rate was 101. But it is currently about 75. On the monitor it looks like a normal sinus rhythm without ST changes without any ectopy. RESPIRATORY: No respiratory distress. Breathing is unlabored. No wheezes. No rhonchi. No rales. No pain with a deep breath. Breathing is very comfortable. Saturations are 95 to 96% on room air showing no hypoxia. Do note smell consistent with cigarette use. GASTROINTESTINAL: Not distended. Bowel sounds are normal. No tenderness. No guarding. No rebound. No palpable mass. No bruit. Despite him saying he has significant epigastric pain I get no tenderness on exam. He is concerned that this is his gallbladder but despite a week of continued pain he has no tenderness now. I also do not feel any pulsatile mass. I hear no bruit. GENITOURINARY: No tenderness over the bladder. No CVA tenderness. MUSCULOSKELETAL: Atraumatic. No peripheral edema. No cord. No tenderness along the deep venous system. No asymmetry. He does have a contusion of the toe where he states he tripped but no deformity. His distal pulses are intact and normal. NEUROLOGICAL: Patient is alert and appropriate. No focal deficit noted. SKIN: No noted rashes. No diaphoresis noted at this time although he states he has had sweating episodes with this.. PSYCHIATRIC: Patient is calm. Mood is appropriate. Const Vital Signs: 10/08/22 15:56 10/08/22 16:44 10/08/22 18:12 Temperature 98 F Temperature Source Temporal Pulse Rate 101 H 76 75 Respiratory Rate 20 H 15 17 Blood Pressure 157/91 H 154/85 H 153/84 H Blood Pressure Mean 113 108 107 Pulse Ox 95 98 98 Oxygen Delivery Method Room Air Room Air Room Air MDM MDM MDM Narrative Medical decision making narrative: .Patient's CBC showed no acute abnormalities. Patient's electrolytes show no acute abnormalities other than minimally low sodium at 135 this is likely factitious because his glucose is also elevated at 263. Lactate is normal at 1.9. Liver function test show no marked abnormalities Lipase is normal. Troponin is unmeasurable with continual symptoms for a week. My independent interpretation of the CTA of the chest abdomen pelvis does not show sign of dissection or air or any other acute process. I see no acute biliary abnormalities. Final reading was similar but it does show some old granulomatous disease. Patient did get relief with meds. He is now admitting that he does get a lot of reflux. He is not on anything for this. We will get him on meds for reflux. I will write for some Bentyl. I will write for refills for all of his medicines that he ran out of 3 weeks ago. He already has an appointment with his exchange specialist in about 2 weeks. I will refer him to a primary physician which she does not have. I explained that he may need outpatient studies such as HIDA or ultrasound but at this point I do not think he needs to be admitted. He does not want to come in the hospital either. Lab Data Attestation: I reviewed the patient's lab results. Labs: Laboratory Results - last 24 hr 10/08/22 16:30 WBC 8.7 RBC 5.37 Hgb 15.5 Hct 46.6 MCV 86.8 MCH 28.9 MCHC 33.3 RDW Std Deviation 37.9 RDW Coeff of Sebasti[place] 12.0 Plt Count 242 MPV 10.7 Immature Gran % (Auto) 0.300 Neut % (Auto) 65.4 Lymph % (Auto) 24.7 [place] % (Auto) 7.6 Eos % (Auto) 1.5 Baso % (Auto) 0.5 Absolute Neuts (auto) 5.7 Absolute Lymphs (auto) 2.15 Nucleated RBC % 0 Sodium 135 L Potassium 4.7 Chloride 103 Carbon Dioxide 27.0 Anion Gap 5 BUN 18 Creatinine 1.04 Estim Creat Clear Calc 100.99 Est GFR (MDRD) Af Amer 98 Est GFR (MDRD) Non-Af 81 BUN/Creatinine Ratio 17.3 Glucose 263 H Lactic Acid 1.9 Calcium 9.5 Total Bilirubin 0.40 AST 14 L ALT 41 Alkaline Phosphatase 90 Troponin I High Sens < 3 L Total Protein 7.7 Albumin 4.1 Globulin 3.6 Albumin/Globulin Ratio 1.1 Lipase 24 Radiography Diagnostic Testing: Clinical Impression(s) from Imaging Studies Chest/Abdomen/Pelvis CTA 10/08/22 16:17 IMPRESSION: Old granulomatous disease, otherwise negative CTA of the chest, abdomen or pelvis. No aortic dissection. Electronically Signed: Evelyn Byrd MD at 18:06 EDT , EKG Initial EKG: Comments: My independent interpretation the patient's EKG done for upper abdominal and chest pain shows a normal sinus rhythm with overall rate of 77. No acute ST elevation or depression. Nonspecific ST change in lead III which is normal variant. CT interval, QRS duration and QTc are normal. Discharge Plan Triage Chief Complaint: Abd Pain ED Provider: [facility] Dx/Rx/DC Orders Clinical Impression: Poor compliance with medication, Hyperglycemia due to type 2 diabetes mellitus, Abdominal pain Instructions: ED Abdominal Pain Unkn Cause Male... Prescriptions: New clopidogrel [Plavix] 75 mg tablet 75 mg PO DAILY Qty: 30 0RF glimepiride 2 mg tablet 2 mg PO DAILY Qty: 30 0RF lisinopril 10 mg tablet 10 mg PO DAILY Qty: 30 0RF metformin 1,000 mg tablet 1,000 mg PO BID Qty: 60 0RF metoprolol tartrate 25 mg tablet 25 mg PO BID Qty: 60 0RF dicyclomine 20 mg tablet 20 mg PO TID PRN (Reason: abdominal pain) Qty: 20 0RF esomeprazole magnesium [Nexium] 20 mg capsule,delayed release(DR/EC) 20 mg PO DAILY Qty: 30 0RF No Action atorvastatin 40 mg tablet 40 mg PO QHS Qty: 30 11RF lisinopril 10 mg tablet 10 mg PO DAILY Qty: 30 12RF clopidogrel 75 mg Tablet 75 mg PO DAILY Qty: 90 3RF aspirin 81 mg Tablet,Delayed Release (Dr/Ec) 81 mg PO BREAKFAST Qty: 90 0RF metoprolol tartrate 25 mg Tablet 25 mg PO BID Qty: 180 0RF metformin 1,000 mg tablet 1,000 mg PO BID Qty: 180 0RF glimepiride [Amaryl] 2 mg tablet 2 mg PO DAILY Qty: 90 0RF Primary Care Provider: Care Physician,No Primary Referrals: Rod Villanueva MD [Med Staff - Director Of Personnel] - As soon as possible Care Physician,No Primary [Primary Care Provider] - Activity Restrictions/Additional Instructions: Follow-up with Dr. Durand as scheduled. Disposition Disposition: Home, Self Care
[2022-10-08] MEDS: Ondansetron 4 MG/2 ML Vial IV (16:30)
[2022-10-08] MEDS: Morphine 4 MG/ML Syringe IV ×2 (16:30→20:10)
[2022-10-08 16:44] VITALS: BP 154/85; PULSE 76; RESP 15; O2SAT 98
[2022-10-08 16:45] LABS: Absolute Lymphocyte Count 2.15 X10^3/uL (0.83-4.51); Absolute Neutrophil Count 5.7 X10^3/uL (2.0-7.7); Basophil# 0.04 X10^3/uL; Basophil% 0.5 % (0-1); Eosinophil# 0.13 X10^3/uL; Eosinophils% 1.5 % (0-5); Hematocrit 46.6 % (40-54); Hemoglobin 15.5 g/dL (13.0-16.5); Lymphocyte # 2.15 X10^3/ul (0.83-4.51); Lymphocyte % 24.7 % (19-41); Mean Corp Hgb Conc 33.3 g/dL (32-36); Mean Corpuscular Hgb 28.9 pg (27.0-32.0); Mean Corpuscular Volume 86.8 fL (80-94); Mean Platelet Vol. 10.7 fl (6.2-12.0); Monocyte# 0.66 X10^3/uL; Monocyte% 7.6 % (0-10); NRBC Flagged by Analyzer 0 % (0-5); Neutrophil % 65.4 % (47-70); Platelet Count 242 K/mm3 (150-450); RBC Distribution Width SD 37.9 fl (35.1-43.9); Red Blood Count 5.37 M/mm3 (4.6-6.2); White Blood Count 8.7 K/mm3 (4.4-11.0)
[2022-10-08 17:24] LABS: ALB/GLOB Ratio 1.1 RATIO (0.9-2.4); AST(SGOT) 14 U/L (15-37); Alanine Aminotransfer ALT/SGPT 41 U/L (16-61); Albumin, Serum 4.1 g/dL (3.2-5.0); Alkaline Phosphatase 90 U/L (45-117); Anion Gap 5 (5-15); BUN 18 mg/dL (7-18); BUN/Creat Ratio 17.3 RATIO (10-20); Calcium,Total 9.5 mg/dL (8.5-10.1); Chloride 103 mmol/L (98-107); Creatinine, Serum 1.04 mg/dL (0.70-1.30); EST Glomerular Filtration Rate 81 mL/min (>60); Est Glom Filt Rate - Afr Amer 98 mL/min (>60); Estimated Creatinine Clearance 100.99 ml/min; Globulin 3.6 g/dL (2.2-4.2); Glucose 263 mg/dL (74-106); Lipase 24 U/L (13-75); Potassium 4.7 mmol/L (3.5-5.1); Protein, Total 7.7 g/dL (6.4-8.2); Sodium Level 135 mmol/L (136-145); Troponin-I HS < 3 pg/mL (3.0-78.0)
[2022-10-08 17:29] LABS: Lactic Acid 1.9 mmol/L (0.4-1.9)
[2022-10-08 18:12] VITALS: BP 153/84; PULSE 75; RESP 17; O2SAT 98
[2022-10-08 20:32] VITALS: BP 137/82; PULSE 81; RESP 18
== END 2022-10-08 20:33 | disposition home or self-care (01) ==
PROVIDERS: Emergency Provider Emergency Medicine; Visit Provider Emergency Medicine
DX: E11.65 Type 2 diabetes mellitus with hyperglycemia (principal); F17.210 Nicotine dependence, cigarettes, uncomplicated; I25.10 Atherosclerotic heart disease of native coronary artery without angina pectoris; Z91.148 Patient's other noncompliance with medication regimen for other reason
CPT/HCPCS: 71275; 74174; 80053; 83605; 83690; 84484; 85025; 93005; 96361; 96374; 96375; 96376; 99283; J7030; Q9967; A4216; J2405; J3490

== ENCOUNTER 2023-04-19 18:45 | Emergency (ER) | payer MEDICAID, SELFPAY ==
[2023-04-19 18:46] VITALS: BP 171/97; PULSE 97; RESP 16; TEMP 36.4; O2SAT 97; BMI 30.8
[2023-04-19 18:48] VITALS: BP 157/91; PULSE 83; RESP 10; TEMP 36.8; O2SAT 95
--- NOTE | 2023-04-19 19:39 | EX.ED.DYSGE1 ---
HPI History of Present Illness Chief Complaint: General Illness Informant: patient Onset/Context/Timing Onset: Weeks (3-4) Context: Gradual Onset Timing: Intermittent Quality: Aching Location: Upper abdomen and radiates to his upper back Worsened by: Movement, activity Relieved by: Rest Narrative Narrative: Patient presents with abdominal pain and back pain that has been getting worse over the past 3 to 4 weeks. Patient states it has been intermittent. Patient states it is worse when he is up and active and moving. Patient states it is better when he is able to lay flat and completely rest. Patient states the pain is mainly over the upper abdomen but radiates into his upper back. Patient describes it as aching. Patient denies any nausea or vomiting. Patient denies any diarrhea, melena, or hematochezia. Patient denies any urinary complaints. Patient denies any fevers or chills. [facility] Medical History Atherosclerosis of coronary artery without angina pectoris CAD (coronary artery disease) Diabetes mellitus History of CAD (coronary artery disease) NSTEMI (non-ST elevated myocardial infarction) Type 2 diabetes mellitus Home Medications aspirin 81 mg tablet,delayed release 81 mg PO BREAKFAST #90 tabs 02/23/23 [Rx Last Taken Unknown] clopidogrel 75 mg tablet 75 mg PO DAILY #90 tabs 02/23/23 [Rx Last Taken Unknown] metformin 1,000 mg tablet 1,000 mg PO BID #60 tabs 02/28/23 [Rx Last Taken Unknown] hydrocodone-acetaminophen 5-325mg 5mg-325mg 1 tab PO Q6H PRN PRN Pain 3 days #10 TABLETS 04/19/23 [Rx Last Taken Unknown] pantoprazole 40 mg tablet,delayed release 40 mg PO DAILY #10 tabs 04/19/23 [Rx Last Taken Unknown] Allergy/AdvReac Type Severity Reaction Status Date / Time No Known Allergies Allergy Verified 04/19/23 18:48 Family History Other Heart disease Surgical History History of coronary artery stent placement (07/20/22) Social History household members: family housing: house Smoking Status: Heavy Smoker (>10/day) alcohol intake: current alcohol intake frequency: holidays/special occasions only Alcohol type: wine substance use type: does not use caffeine: Yes Type: coffee Number of servings: 5 ROS ROS ED Constitutional Constitutional ED: Denies chills or fever(s) Eyes Eyes: Reports blurry vision; Denies diplopia ENT ENT ED: Denies rhinorrhea or sore throat Cardiovascular Cardiovascular: Denies chest pain or palpitations Respiratory/Chest Respiratory/Chest: Denies cough or dyspnea Gastrointestinal Gastrointestinal: Reports abdominal pain; Denies diarrhea, nausea or vomiting Genitourinary Genitourinary ED: Denies dysuria or hematuria Musculoskeletal Musculoskeletal: Reports back pain; Denies neck pain Integumentary Denies abscess or rash Neurologic Neurologic: Denies headache(s) or weakness Allergic/Immunologic Allergic/Immunologic ED: Denies mouth swelling or urticaria EXAM Physical Exam Const Vital Signs: 04/19/23 18:46 04/19/23 18:57 04/19/23 18:48 Temperature 97.5 F L 98.2 F Temperature Source Temporal Temporal Pulse Rate 97 83 Respiratory Rate 16 10 L Respiratory Effort Normal Respiratory Pattern Normal Blood Pressure 171/97 H 157/91 H Blood Pressure Mean 121 113 Pulse Ox 97 95 Oxygen Delivery Method Room Air Room Air 04/19/23 21:06 04/19/23 22:23 Temperature Temperature Source Pulse Rate 74 67 Respiratory Rate 15 15 Respiratory Effort Respiratory Pattern Blood Pressure 139/83 H 142/96 H Blood Pressure Mean 101 111 Pulse Ox 98 99 Oxygen Delivery Method Room Air Room Air Positive well nourished and well developed General Appearance ED: well developed and NAD HEENT Reports moist mucous membranes Eyes PERRL and EOMs intact bilaterally Neck supple and no JVD Chest Wall inspection of chest normal and palpation of chest normal Resp normal respiratory effort and clear to auscultation bilaterally Cardio regular rate and regular rhythm GI non-distended Palpation: soft and tender epigastric, RUQ and Salinas's sign; Negative for guarding or rebound tenderness present Extremity normal to inspection General Extremety ED: Negative for edema or tenderness General Extremity: Negative for edema Neuro oriented x3, CN's II-XII intact bilaterally and no sensory deficits noted Sensorium / Orientation: alert Motor Exam: strength 5/5 throughout Psych mental status grossly normal MDM MDM MDM Narrative Medical decision making narrative: Differential diagnosis includes acute cholecystitis, cholelithiasis, choledocholithiasis, pancreatitis, peptic ulcer disease, duodenal ulcer, bowel obstruction, perforation, ureteral calculus, pyelonephritis, urinary tract infection, gastroesophageal reflux disease, and viral gastroenteritis. Right upper quadrant ultrasound will be obtained to assess for cholecystitis, cholelithiasis, and choledocholithiasis. CBC will be obtained to assess for leukocytosis and anemia. Comprehensive metabolic profile will be obtained to assess for hepatic function, renal function, and electrolyte abnormality. Lipase will be obtained to assess for pancreatitis. Urinalysis will be obtained to assess for urinary tract infection and hematuria. Lab Data Attestation: I reviewed the patient's lab results. Lab results narrative: CBC was reviewed and was within normal limits. Comprehensive metabolic profile was reviewed. Glucose was slightly elevated at 201. Anion gap was normal. The remainder was within normal limits. Lipase was reviewed and was normal at 27. Urinalysis was reviewed. There is no evidence of urinary tract infection or hematuria. Labs: Laboratory Results - last 24 hr 04/19/23 04/19/23 19:45 20:04 WBC 7.4 RBC 5.54 Hgb 15.6 Hct 45.9 MCV 82.9 MCH 28.2 MCHC 34.0 RDW Std Deviation 35.7 RDW Coeff of Sebastián 11.8 Plt Count 245 MPV 10.1 Immature Gran % (Auto) 0.400 Neut % (Auto) 56.9 Lymph % (Auto) 32.7 [place] % (Auto) 7.5 Eos % (Auto) 2.0 Baso % (Auto) 0.5 Absolute Neuts (auto) 4.2 Absolute Lymphs (auto) 2.41 Nucleated RBC % 0 Sodium 138 Potassium 4.3 Chloride 107 Carbon Dioxide 28.0 Anion Gap 3 L BUN 17 Creatinine 1.06 Estim Creat Clear Calc 111.94 Est GFR (MDRD) Af Amer 96 Est GFR (MDRD) Non-Af 79 BUN/Creatinine Ratio 16.0 Glucose 201 H Calcium 9.9 Total Bilirubin 0.30 AST 11 L ALT 36 Alkaline Phosphatase 70 Total Protein 7.4 Albumin 3.8 Globulin 3.6 Albumin/Globulin Ratio 1.1 Lipase 27 Urine Color Yellow Urine Clarity Clear Urine pH 6.0 Ur Specific [place] 1.025 Urine Protein 100 H Urine Glucose (UA) 100 H Urine Ketones 5 H Urine Occult Blood 10 H Urine Nitrite Negative Urine Bilirubin Negative Urine Urobilinogen Normal Ur Leukocyte Esterase Negative Urine RBC 0-5 SEEN Urine WBC 0 SEEN Ur Squamous Epith Cells 0 SEEN Urine Bacteria 0 SEEN Urine Mucus 0 SEEN Radiography Diagnostic Testing: Clinical Impression(s) from Imaging Studies Gallbladder Ultrasound 04/19/23 19:40 IMPRESSION: Probable focal fatty sparing within the liver. Pancreas is not well visualized. Electronically Signed: Uli Fischer MD at 22:04 EST , Gallbladder ultrasound was obtained. There is no evidence of cholecystitis or cholelithiasis. There is no ductal dilatation. There is no gallbladder wall thickening. There is probable focal fatty sparing within the liver. This was interpreted by the radiologist and was also independently reviewed by myself. Treatment and Re-Evaluation :: Patient was given IV fluids, morphine, Zofran. Patient was given a repeat dose of morphine. Patient states his pain improved. Patient states he was starting to return. Patient was given another dose of morphine, a dose of pantoprazole, and a GI cocktail. Patient was given a prescription for a short course of [place]. Patient was also given a prescription for pantoprazole. Patient was instructed to follow-up with his primary care physician in 3 to 5 days for further evaluation. Patient understood and was agreeable with the plan. All questions were answered. Discharge Plan Triage Chief Complaint: General Illness ED Provider: Rod Kohli Dx/Rx/DC Orders Clinical Impression: Type 2 diabetes mellitus, Abdominal pain in male Instructions: ED Abdominal Pain Unkn Cause Male... Prescriptions: New hydrocodone-acetaminophen [hydrocodone-acetaminophen] 5-325 mg tablet 1 tab PO Q6H PRN PRN (Reason: Pain) 3 Days Qty: 10 0RF pantoprazole 40 mg tablet,delayed release (DR/EC) 40 mg PO DAILY Qty: 10 0RF No Action aspirin 81 mg tablet,delayed release (DR/EC) 81 mg PO BREAKFAST Qty: 90 3RF clopidogrel 75 mg tablet 75 mg PO DAILY Qty: 90 3RF metformin 1,000 mg tablet 1,000 mg PO BID Qty: 60 0RF Primary Care Provider: Care Physician,No Primary Referrals: Sukh Rogel MD [Med Staff - Cardiology Technician] - 3-5 Days Anatoliy Ascencio DO [Med Staff - Active Staff] - 5-7 Days Care Physician,No Primary [Primary Care Provider] - Disposition Disposition: Home, Self Care
--- NOTE | 2023-04-19 19:40 | US_ITS ---
STUDY: ABDOMINAL ULTRASOUND - RIGHT UPPER QUADRANT REASON FOR VISIT: Male, 47 years old ABD PAIN TECHNIQUE: Ultrasound evaluation of the right upper quadrant was performed with real-time and static valente-scale imaging. TECHNICAL QUALITY: Adequate. COMPARISON: None. FINDINGS: Liver: The liver measures 18.5 cm. There is increased echogenicity consistent with fatty infiltration. The bile ducts are within normal limits. There is hepatic color flow. The direction of portal flow is hepatopetal. Focal hypoechoic lesion measured 2.4 x 1.8 x 1.2 cm. Gallbladder: Normal distended gallbladder. The gallbladder wall measures 2 mm. There is a negative sonographic Salinas''s sign. There is no pericholecystic fluid. There are no gallstones. Common Bile Duct (C.B.D.): The common bile duct measures 5 mm. Pancreas: Not well visualized due to bowel gas. Right Kidney: Normal size of the right kidney. The right kidney measures 12.3 cm. Normal renal cortex. The right cortex measures 2 cm. There is no demonstrated renal mass or cyst. There is no right hydronephrosis. US/Gallbladder IMPRESSION: Probable focal fatty sparing within the liver. Pancreas is not well visualized. Electronically Signed: Uli Fischer MD at 22:04 EST ,
--- OUTSIDE RECORDS SUMMARY | 2023-04-19 19:41 | XMS RPT_ITS | CCD ---
Author Name Unknown Address [address] [place] [address] Organization [facility] Care Team Providers Care Log Loader Name Role Phone RICH RILEY Unavailable Unavailable JOHN PAUL GEORGE Unavailable Unavailable RICH RILEY Unavailable Unavailable JOHN PAUL GEORGE Unavailable Unavailable BRAD CALDERON Unavailable Unavailable MINO ABARCA Unavailable Unavailable NO, DOCTOR ON Consulting Unavailable ACACIA REAGAN MD Admitting Unavailable ACACIA REAGAN MD Primary Care Unavailable ACACIA REAGAN MD Attending Unavailable MILENA SUMMERS MD Attending Unavailable DAMEON SANTAMARIA MD Consulting Unavailable MILENA SUMMERS MD Admitting Unavailable MILENA SUMMERS MD Primary Care Unavailable PROVIDER, UNKNOWN Consulting Unavailable PROVIDER, UNKNOWN Consulting Unavailable PROVIDER, UNKNOWN Consulting Unavailable Problems Active Problems Problem Classification Problem Date Documented Da te Episodic/Chronic Nonspecific chest pain (3 sources) Chest pain, unspecified; Translations: [Chest pain, unspecified] Onset: 06-12-2022 Episodic Unclassified (1 source) Unknown / UNK(Unknown) Onset: 03-21-2017 Past or Other Problems Problem Classification Problem Date Documented Da te Episodic/Chronic Spondylosis; intervertebral disc disorders; other back problems (1 source) Low back pain; Translations: [LOW BACK PAIN] Onset: 12-21-2016 Episodic Unclassified (1 source) BACK & HIP PAIN/ TRAIGE Onset: 03-21-2017 Results Test Name Value Interpretation Reference Range Facil ity Encounters Encounter Date Encounter Type Care Provider Facility Start: 06-12-2022 End: 06-12-2022 ambulatory [facility]CTOR [facility] Start: 03-21-2017 Emergency department patient visit Facility:[facility] Start: 12-22-2016 End: 12-22-2016 Emergency department patient visit BRAD CALDERON Facility: Start: 12-21-2016 End: 12-21-2016 Emergency department patient visit RICH RILEY Facility: Start: 11-29-2016 End: 11-29-2016 Emergency department patient visit RICH RILEY Facility: Payers Date Payer Category Payer Policy ID Unknown [id number] Summary Purpose Family History No Family History Records FoundNo Family History Records FoundNo Family History Records Found Advance Directives No Advanced Directives Records FoundNo Advanced Directives Records FoundNo Advanced Directives Records Found Additional Source Comments (unrecognized sect ion and content) No Status Records FoundNo Status Records FoundNo Status Records Found INFORMATION SOURCE (unrecogn ized section and content) DATE CREATED AUTHOR AUTHOR'S ORGANIZ ATION 10/05/2017 [facility] DATE CREATED AUTHOR AUTHOR'S ORGANIZ ATION 07/01/2022 [facility] FOR RECORDS PERTAINING TO PATIENTS WHO ARE OR HAVE BEEN ENROLLED IN A CHEMICAL DEPENDENCY/SUBSTANCEABUSE PROGRAM, SOME INFORMATION MAY BE OMITTED. This clinical summary was aggregated from multiple sources. Caution should be exercised in using it in the provision of clinical care. This summary normalizes information from multiple sources, and as a consequence, information in this document may materially change the coding, format and clinical context of patient data. In addition, data may be omitted in some cases. CLINICAL DECISIONS SHOULD BE BASED ON THE PRIMARY CLINICAL RECORDS. [facility] [employer] provides no warranty or guarantee of the accuracy or completeness of information in this document.
[2023-04-19] MEDS: Ondansetron 4 MG/2 ML Vial IV (19:58)
[2023-04-19] MEDS: Morphine 4 MG/ML Syringe IV ×3 (19:59→23:28)
[2023-04-19] MEDS: 0.9% Normal Saline (1000mL) 1,000 ML 1000 ML IV (20:01)
[2023-04-19 20:09] LABS: Bacteria 0 SEEN /hpf (None Seen); Mucous, Urine 0 SEEN /hpf (<or=2+); Squamous Epithelial Cells - UA 0 SEEN /hpf (0-5); White Blood Cells 0 SEEN /hpf (0-5)
[2023-04-19 20:12] LABS: Absolute Lymphocyte Count 2.41 X10^3/uL (0.83-4.51); Absolute Neutrophil Count 4.2 X10^3/uL (2.0-7.7); Basophil# 0.04 X10^3/uL; Basophil% 0.5 % (0-1); Eosinophil# 0.15 X10^3/uL; Hematocrit 45.9 % (40-54); Hemoglobin 15.6 g/dL (13.0-16.5); Lymphocyte # 2.41 X10^3/ul (0.83-4.51); Lymphocyte % 32.7 % (19-41); Mean Corpuscular Hgb 28.2 pg (27.0-32.0); Mean Corpuscular Volume 82.9 fL (80-94); Mean Platelet Vol. 10.1 fl (6.2-12.0); Monocyte# 0.55 X10^3/uL; Monocyte% 7.5 % (0-10); NRBC Flagged by Analyzer 0 % (0-5); Neutrophil # 4.19 X10^3/uL (2.7-7.7); Neutrophil % 56.9 % (47-70); Platelet Count 245 K/mm3 (150-450); RBC Distribution Width CV 11.8 % (11.6-14.6); RBC Distribution Width SD 35.7 fl (35.1-43.9); Red Blood Count 5.54 M/mm3 (4.6-6.2); White Blood Count 7.4 K/mm3 (4.4-11.0)
[2023-04-19 20:14] LABS: Color, Urine Yellow (Yellow); Glucose, Dipstick 100 mg/dl (Normal); Ketone-Dipstick 5 mg/dl (Negative); Leukocyte Esterase-Dipstick Negative /ul (Negative); Nitrite-Dipstick Negative (Negative); Occult Blood-Urine 10 /ul (Negative); Protein-Dipstick 100 mg/dl (Negative); Specific Gravity, Urine 1.025 (1.002-1.030); Urine Bilirubin Dipstick Negative (Negative); Urine Clarity Clear (Clear); Urine Urobilinogen Normal (Normal)
[2023-04-19 20:23] LABS: Red Blood Cells-Urine 0-5 SEEN /hpf (0-5)
[2023-04-19 20:30] LABS: ALB/GLOB Ratio 1.1 RATIO (0.9-2.4); AST(SGOT) 11 U/L (15-37); Alanine Aminotransfer ALT/SGPT 36 U/L (16-61); Albumin, Serum 3.8 g/dL (3.2-5.0); Alkaline Phosphatase 70 U/L (45-117); Anion Gap 3 (5-15); BUN 17 mg/dL (7-18); Calcium,Total 9.9 mg/dL (8.5-10.1); Chloride 107 mmol/L (98-107); Creatinine, Serum 1.06 mg/dL (0.70-1.30); EST Glomerular Filtration Rate 79 mL/min (>60); Est Glom Filt Rate - Afr Amer 96 mL/min (>60); Estimated Creatinine Clearance 111.94 ml/min; Globulin 3.6 g/dL (2.2-4.2); Glucose 201 mg/dL (74-106); Lipase 27 U/L (13-75); Potassium 4.3 mmol/L (3.5-5.1); Protein, Total 7.4 g/dL (6.4-8.2); Sodium Level 138 mmol/L (136-145)
[2023-04-19 21:06] VITALS: BP 139/83; PULSE 74; RESP 15; O2SAT 98
[2023-04-19 22:23] VITALS: BP 142/96; PULSE 67; RESP 15; O2SAT 99
[2023-04-19 23:26] VITALS: BP 143/81; PULSE 69; RESP 15; O2SAT 98
[2023-04-19] MEDS: Mag Hydrox/Al Hydrox/Simeth 30 ML UDC PO (23:27)
[2023-04-19] MEDS: Pantoprazole Sodium 40 MG Tablet PO (23:32)
== END 2023-04-19 23:37 | disposition home or self-care (01) ==
PROVIDERS: Emergency Provider Emergency Medicine; Visit Provider Emergency Medicine
DX: E11.9 Type 2 diabetes mellitus without complications (principal); F17.200 Nicotine dependence, unspecified, uncomplicated; R10.9 Unspecified abdominal pain; I25.10 Atherosclerotic heart disease of native coronary artery without angina pectoris
CPT/HCPCS: 76705; 80053; 81001; 83690; 85025; 96361; 96374; 96375; 96376; 99283; J7030; A4216; J2405

== ENCOUNTER 2023-06-14 21:28 | Inpatient (IN) | payer MEDICAID, SELFPAY ==
[2023-06-14] VITALS (10 sets, daily range): BP systolic 124–170; BP diastolic 69–86; PULSE 72–85; RESP 11–19; TEMP 36.3–36.6; O2SAT 93–98; BMI 32.9
--- NOTE | 2023-06-14 21:31 | EKG12_ITS ---
Test Reason : CP Blood Pressure : / mmHG Vent. Rate : 080 BPM Atrial Rate : 080 BPM P-R Int : 136 ms QRS Dur : 092 ms QT Int : 358 ms P-R-T Axes : 041 -47 049 degrees QTc Int : 412 ms Normal sinus rhythm Left anterior fascicular block Cannot rule out Inferior infarct , age undetermined Abnormal ECG Confirmed by Rajat Zelaya ([id number]), acquisitions editor MISHA WILSON ([id number]) on 06/15/2023 9:44:34 AM Referred By: Confirmed By:Rajat Zelaya
[2023-06-14 21:47] LABS: Absolute Lymphocyte Count 2.33 X10^3/uL (0.83-4.51); Absolute Neutrophil Count 3.4 X10^3/uL (2.0-7.7); Basophil# 0.05 X10^3/uL; Basophil% 0.8 % (0-1); Eosinophil# 0.16 X10^3/uL; Eosinophils% 2.4 % (0-5); Hematocrit 40.6 % (40-54); Hemoglobin 13.8 g/dL (13.0-16.5); Lymphocyte # 2.33 X10^3/ul (0.83-4.51); Lymphocyte % 35.5 % (19-41); Mean Corpuscular Hgb 27.8 pg (27.0-32.0); Mean Corpuscular Volume 81.9 fL (80-94); Mean Platelet Vol. 9.7 fl (6.2-12.0); Monocyte# 0.58 X10^3/uL; Monocyte% 8.8 % (0-10); NRBC Flagged by Analyzer 0 % (0-5); Neutrophil # 3.44 X10^3/uL (2.7-7.7); Neutrophil % 52.3 % (47-70); Platelet Count 242 K/mm3 (150-450); RBC Distribution Width CV 12.4 % (11.6-14.6); RBC Distribution Width SD 36.5 fl (35.1-43.9); Red Blood Count 4.96 M/mm3 (4.6-6.2); White Blood Count 6.6 K/mm3 (4.4-11.0)
--- NOTE | 2023-06-14 21:50 | RAD_ITS ---
INDICATION: chest pain EXAMINATION/TECHNIQUE: X-RAY - XR Chest 1 View AP portable. 9:51 PM COMPARISON: 07/24/2022 FINDINGS: LINES/DEVICES: None. LUNGS: No consolidation. No pneumothorax. MEDIASTINUM: Unremarkable. CARDIAC SILHOUETTE: Not enlarged. BONES AND SOFT TISSUES: No acute abnormalities. RAD/Chest 1 View (Portable) IMPRESSION: No evidence of active intrathoracic disease. Electronically Signed: Missy Hooper MD at 22:09 EST ,
[2023-06-14 22:19] LABS: Anion Gap 4 (5-15); BUN 18 mg/dL (7-18); BUN/Creat Ratio 16.5 RATIO (10-20); Calcium,Total 9.4 mg/dL (8.5-10.1); Chloride 107 mmol/L (98-107); Creatinine, Serum 1.09 mg/dL (0.70-1.30); EST Glomerular Filtration Rate 76 mL/min (>60); Est Glom Filt Rate - Afr Amer 93 mL/min (>60); Glucose 252 mg/dL (74-106); Potassium 4.6 mmol/L (3.5-5.1); Sodium Level 137 mmol/L (136-145); Troponin-I HS (w/2H Reflex) 239 pg/mL (3.0-78.0)
--- NOTE | 2023-06-14 22:42 | ED.VIS.CHEST ---
HPI History of Present Illness Chief Complaint: Chest Pain Informant: patient Onset/Context/Timing Onset: Today Narrative Narrative: Patient woke up with diffuse nonpleuritic sharp chest pain today, he seen at about 10 PM here in the ER saying that for the most part it was there all day but he did have some amount of time where the discomfort resolved, but seem to be waxing and waning throughout the day and prior to coming to the ER just walking short distance he was out of breath and the discomfort got worse. He has had some mild discomfort in his jaw at times but nothing down his arm like he did with his heart attack last year. He has been feeling very fatigued which is unlike him. He had an NSTEMI with a stent in his LAD last year followed by staged stenting of his RCA. He has been on clopidogrel, he states he ran out of it for the last 1.5 weeks and just got it back and restarted it today. [facility] Medical History (Updated 06/15/23 @ 00:[address] Lashawn Siddiqi MD) Atherosclerosis of coronary artery without angina pectoris CAD (coronary artery disease) Diabetes mellitus Hyperlipidemia Hypertension NSTEMI (non-ST elevated myocardial infarction) Obesity Type 2 diabetes mellitus Home Medications metformin 1,000 mg tablet 1,000 mg PO BID #60 tabs 02/28/23 [Rx Last Taken Unknown] aspirin 81 mg tablet,delayed release 81 mg PO BREAKFAST #90 tabs 06/06/23 [Rx Last Taken Unknown] clopidogrel 75 mg tablet 75 mg PO DAILY #90 tabs 06/06/23 [Rx Last Taken Unknown] Allergy/AdvReac Type Severity Reaction Status Date / Time No Known Allergies Allergy Verified 04/19/23 18:48 Family History (Updated 06/15/23 @ 00:[address] Lashawn Siddiqi MD) Mother Heart disease Hypertension CAD (coronary artery disease) Myocardial infarction Heart transplant recipient Father Heart disease Hypertension CAD (coronary artery disease) Myocardial infarction Surgical History History of coronary artery stent placement (07/20/22) Social History (Updated 06/15/23 @ 00:[address] Lashawn Siddiqi MD) household members: spouse and children housing: house Smoking Status: Current every day smoker tobacco type: cigarettes Smoking packs per day: 0.5 Smoking cigarettes per day: 10.0 alcohol intake: current alcohol intake frequency: holidays/special occasions only Alcohol type: wine substance use type: does not use caffeine: Yes Type: coffee Number of servings: 5 ROS ROS ED Constitutional Constitutional ED: Reports fatigue; Denies chills or fever(s) Eyes Eyes: Denies change in vision or diplopia ENT ENT ED: Denies rhinorrhea or sore throat Cardiovascular Cardiovascular: Reports as per HPI, chest pain and radiating jaw, neck or arm pain; Denies palpitations Respiratory/Chest Respiratory/Chest: Reports dyspnea on exertion; Denies cough Gastrointestinal Gastrointestinal: Denies abdominal pain, diarrhea, nausea or vomiting Genitourinary Genitourinary ED: Denies dysuria or hematuria Musculoskeletal Musculoskeletal: Denies back pain or neck pain Integumentary Denies abscess or rash Neurologic Neurologic: Denies headache(s), paresthesias or weakness Psychiatric Psychiatric: Denies anxiety or suicidal thoughts EXAM Physical Exam Const Vital Signs: 06/14/23 21:28 06/14/23 21:51 06/14/23 22:00 Temperature 97.3 F L Temperature Source Temporal Pulse Rate 85 78 Respiratory Rate 18 18 Blood Pressure 170/86 H 135/76 H Blood Pressure Mean 114 94 Pulse Ox 98 93 Oxygen Delivery Method Room Air Room Air 06/14/23 22:15 06/14/23 22:30 06/14/23 22:45 Temperature Temperature Source Pulse Rate 80 77 77 Respiratory Rate 19 H 18 18 Blood Pressure 124/69 H 144/78 H 137/72 H Blood Pressure Mean 86 97 90 Pulse Ox 93 94 94 Oxygen Delivery Method 06/14/23 23:00 06/14/23 23:15 Temperature Temperature Source Pulse Rate 81 76 Respiratory Rate 14 11 L Blood Pressure 139/77 H 159/83 H Blood Pressure Mean 96 104 Pulse Ox 95 96 Oxygen Delivery Method Positive well nourished and well developed General Appearance ED: well developed and NAD HEENT Reports moist mucous membranes normocephalic and atraumatic Eyes PERRL and EOMs intact bilaterally Neck full ROM and supple Resp normal respiratory effort and clear to auscultation bilaterally Cardio regular rate, regular rhythm and no murmurs Peripheral Pulses: pulses 2+ throughout GI non-tender and non-distended Auscultation: normoactive bowel sounds Palpation: soft Back/Spine no CVA tenderness General Back: other FROM Extremity normal to inspection General Extremety ED: Negative for edema, pulses abnormal or tenderness General Extremity: Negative for edema or pulses abnormal Neuro oriented x3, CN's II-XII intact bilaterally and no sensory deficits noted Sensorium / Orientation: awake and alert Motor Exam: strength 5/5 throughout Skin no rashes or lesions noted and no wounds Heart Score History: Highly Suspicious ECG: Normal Age: >45 - <65 years Risk Factors: >/= 3 Risk Factors or History of CAD Troponin: >/=3 x Normal Limit Score: 7 MDM MDM MDM Narrative Medical decision making narrative: Although the patient's EKG shows a left axis and is otherwise normal and unchanged compared with his old EKG, his troponin is elevated suggesting acute coronary syndrome which is what I think is going on. His chest x-ray 1 view is normal in my interpretation. I discussed with Dr. Zelaya with cardiology, he agrees with putting the patient on heparin and admitting him, but advises trying to get him pain-free. He was given aspirin, morphine, Zofran, nitroglycerin. On reevaluation he is feeling much better and almost pain-free. Discussed with hospitalist will admit. Heparin gtt started after bolus. History & Record Review Additional record(s) reviewed:: Prior outpatient record (Cardiology, EKG) Lab Data Attestation: I reviewed the patient's lab results. Labs: Laboratory Results - last 24 hr 06/14/23 21:42 WBC 6.6 RBC 4.96 Hgb 13.8 Hct 40.6 MCV 81.9 MCH 27.8 MCHC 34.0 RDW Std Deviation 36.5 RDW Coeff of Sebastián 12.4 Plt Count 242 MPV 9.7 Immature Gran % (Auto) 0.200 Neut % (Auto) 52.3 Lymph % (Auto) 35.5 [place] % (Auto) 8.8 Eos % (Auto) 2.4 Baso % (Auto) 0.8 Absolute Neuts (auto) 3.4 Absolute Lymphs (auto) 2.33 Nucleated RBC % 0 PT 12.3 INR 0.9 APTT 26.1 Sodium 137 Potassium 4.6 Chloride 107 Carbon Dioxide 26.0 Anion Gap 4 L BUN 18 Creatinine 1.09 Est GFR (MDRD) Af Amer 93 Est GFR (MDRD) Non-Af 76 BUN/Creatinine Ratio 16.5 Glucose 252 H Calcium 9.4 Troponin I High Sens 239 H* Radiography Diagnostic Testing: Clinical Impression(s) from Imaging Studies Chest X-Ray 06/14/23 21:50 IMPRESSION: No evidence of active intrathoracic disease. Electronically Signed: Missy Hooper MD at 22:09 EST , Rhythm Strip Rhythm Strip: Sinus Rhythm Rate: 80 Ectopy: None EKG Initial EKG: Attestation: I personally reviewed and interpreted this EKG as follows: Interpretation: Sinus Rhythm, No Acute Injury Pattern and LAFB Prior EKG tracings: available for review and not available for review Management Discussion w/another healthcare provider: Hospitalist and Software Applications Developer (cardiology Dr. Zelaya) Critical Care Time Critical Care Time: Yes Critical care time (excluding procedures): 30-74 minutes (36 min), Including time spent:, Discussing w/Patient &/or Family/Building Construction Ironworker, Discussing w/Consultants, Arranging Admission or Transfer and Performing Direct Patient Care at Bedside Discharge Plan Dx/Rx/DC Orders Clinical Impression: Acute coronary syndrome Disposition Disposition: Acute Care [facility] Discharge Date/Time: 06/14/23 23:50
[2023-06-14] MEDS: Morphine 4 MG/ML Syringe IV (23:08)
[2023-06-14] MEDS: Aspirin 81 MG TAB.CHEW 162 MG PO (23:08)
--- NOTE | 2023-06-14 23:18 | PCM.HP.STD ---
HPI - General General Date of Admission: 06/14/23 Date of Service: 06/14/23 Chief Complaint: Chest pain, dyspnea, fatigue. HPI Narrative The patient is a 47 y/o M w/ PMHx: CAD, Diabetes mellitus type II, GERD who presents to the [facility] ED on 06/14/23 w/ history of diffuse nonpleuritic sharp chest discomfort ongoing, initially waxing and waning however unfortunately it recurred awakening from sleep noted to be across the chest with associated dyspnea with no nausea, emesis or diaphoresis with radiation to bilateral jaw prompting eventual ED evaluation. He denied any radition into his extremities or his back like he did with his previous heart attack but does report concurrent recent increased fatigue and malaise. He does report that he ran out of Plavix 1.5 weeks prior and did not notify his physician for refill. Unfortunately there also blood pressure medication and statin therapy which had previously been on but had fallen off. From discussion suspect he is taken himself off of these medications. He notes that the chest discomfort was stabbing in nature and at its worst 9 out of 10 in severity now down to 7 out of 10 with his first nitroglycerin now being given. Workup in the ED included T97.3, heart rate 85, BP initially 170/86 with most recent repeat 137/72, respiratory rate 18, 98% on room air, CBC with WBC 6.6, human 13.8, platelet 242 without marked shift, BMP with glucose 252, troponin initial 239, chest x-ray with no acute cardiopulmonary finding, EKG with sinus rhythm with no acute evidence of ischemia unchanged from previous. ED physician discussed case with cardiology who agreed with heparin drip initiation as well as aspirin with planned evaluation for acute coronary syndrome. In the ED patient ministered aspirin 162 mg p.o. x 1, heparin bolus and drip, morphine 4 mg IV x 1 as well as sublingual nitroglycerin. [facility] Medical History (Updated 06/15/23 @ 00:[address] Lashawn Siddiqi MD) Atherosclerosis of coronary artery without angina pectoris CAD (coronary artery disease) Diabetes mellitus Hyperlipidemia Hypertension NSTEMI (non-ST elevated myocardial infarction) Obesity Type 2 diabetes mellitus Home Medications metformin 1,000 mg tablet 1,000 mg PO BID #60 tabs 02/28/23 [Rx Last Taken Unknown] aspirin 81 mg tablet,delayed release 81 mg PO BREAKFAST #90 tabs 06/06/23 [Rx Last Taken Unknown] clopidogrel 75 mg tablet 75 mg PO DAILY #90 tabs 06/06/23 [Rx Last Taken Unknown] Allergy/AdvReac Type Severity Reaction Status Date / Time No Known Allergies Allergy Verified 04/19/23 18:48 Family History (Updated 06/15/23 @ 00:[address] Lashawn Siddiqi MD) Mother Heart disease Hypertension CAD (coronary artery disease) Myocardial infarction Heart transplant recipient Father Heart disease Hypertension CAD (coronary artery disease) Myocardial infarction Surgical History History of coronary artery stent placement (07/20/22) Social History (Updated 06/15/23 @ 00:[address] Lashawn Siddiqi MD) household members: spouse and children housing: house Smoking Status: Current every day smoker tobacco type: cigarettes Smoking packs per day: 0.5 Smoking cigarettes per day: 10.0 alcohol intake: current alcohol intake frequency: holidays/special occasions only Alcohol type: wine substance use type: does not use caffeine: Yes Type: coffee Number of servings: 5 ROS ROS Narrative Admission Review of Systems: CONSTITUTIONAL: No weight loss, fever, chills, + weakness or fatigue. HEENT: + Bilateral jaw pain. Eyes: No visual loss, blurred vision, double vision or yellow sclerae. Ears, Nose, Throat: No hearing loss, sneezing, congestion, runny nose or sore throat. SKIN: No rash or itching, lesions, wounds. CARDIOVASCULAR: + Chest pain. No palpitations, edema, orthopnea, syncopal events. RESPIRATORY: + Dyspnea. No cough or sputum, wheezing, hemoptysis. GASTROINTESTINAL: No anorexia, nausea, vomiting or diarrhea, abdominal pain, melena, BRBPR. GENITOURINARY: No dysuria, frequency, urgency or retention. NEUROLOGICAL: No headache, dizziness, syncope, paralysis, ataxia, numbness or tingling in the extremities, focal weakness, change in bowel or bladder control, seizure. MUSCULOSKELETAL: + muscle, back pain, joint pain or stiffness. HEMATOLOGIC: No anemia. + Easy bleeding/bruising on dual antiplatelet therapy. LYMPHATICS: No enlarged nodes. No history of splenectomy. PSYCHIATRIC: No history of depression or anxiety. ENDOCRINOLOGIC: No reports of sweating, cold or heat intolerance. No polyuria or polydipsia. ALLERGIES: No history of asthma, hives, eczema or rhinitis. Vital Signs Vital Signs Vital Signs: 06/14/23 21:28 06/14/23 21:51 06/14/23 22:00 Temperature 97.3 F L Temperature Source Temporal Pulse Rate 85 78 Respiratory Rate 18 18 Blood Pressure 170/86 H 135/76 H Blood Pressure Mean 114 94 Pulse Ox 98 93 Oxygen Delivery Method Room Air Room Air 06/14/23 22:15 06/14/23 22:30 06/14/23 22:45 Temperature Temperature Source Pulse Rate 80 77 77 Respiratory Rate 19 H 18 18 Blood Pressure 124/69 H 144/78 H 137/72 H Blood Pressure Mean 86 97 90 Pulse Ox 93 94 94 Oxygen Delivery Method Weight Weight: 256 lb 6.362 oz Body Mass Index (BMI) 32.9 Physical Exam Narrative Physical Examination: General: Awake, alert, oriented x 3 and cooperative, seated upright in the ED bed, fatigued, notes chest discomfort mildly improved now down to 7 out of 10 in severity. Skin: Normal color, normal turgor, no icterus, no cyanosis. HEENT: AT/NC, EOMI, PERRLA, mildly dry MM, no carotid bruits or JVD noted. Lungs: CTA bilaterally, moderate effort, mild decrease BL bases, no rales, ronchi or wheezing. Heart: Regular rate and rhythm; no gallop, rub audible. Abdomen: Soft, obese, NTTP, ND, normal BS, no HSM. Extremities: No cyanosis, clubbing, or edema. Neurological: Patient awake, alert, oriented as noted, cognitive function intact; pupils equally reactive to light and accommodation, cranial nerves II-XII grossly normal, moving all 4 extremities, no focal deficits, strength mildly to moderately globally Trudy secondary to acute presentation complaints. Psychiatric: Affect appears fatigued, no acute evidence of depressive or anxiety feelings. Results Lab / Micro Data 06/14/23 21:42 06/14/23 21:42 Labs: Laboratory Results - last 24 hr 06/14/23 21:42: WBC 6.6, RBC 4.96, Hgb 13.8, Hct 40.6, MCV 81.9, MCH 27.8, MCHC 34.0, RDW Std Deviation 36.5, RDW Coeff of Sebastián 12.4, Plt Count 242, MPV 9.7, Immature Gran % (Auto) 0.200, Neut % (Auto) 52.3, Lymph % (Auto) 35.5, [place] % (Auto) 8.8, Eos % (Auto) 2.4, Baso % (Auto) 0.8, Absolute Neuts (auto) 3.4, Absolute Lymphs (auto) 2.33, Nucleated RBC % 0, Sodium 137, Potassium 4.6, Chloride 107, Carbon Dioxide 26.0, Anion Gap 4 L, BUN 18, Creatinine 1.09, Est GFR (MDRD) Af Amer 93, Est GFR (MDRD) Non-Af 76, BUN/Creatinine Ratio 16.5, Glucose 252 H, Calcium 9.4, Troponin I High Sens 239 H* Rhythm Strip Rhythm Strip: Sinus Rhythm Rate: 80 Ectopy: None Imaging Radiology Impression Chest X-Ray 06/14/23 21:50 IMPRESSION: No evidence of active intrathoracic disease. Electronically Signed: Missy Hooper MD at 22:09 EST , Assessment & Plan Assessment/Plan (1) NSTEMI, initial episode of care: PLAN: Plan The patient is a 47 y/o M w/ PMHx: CAD, Diabetes mellitus type II, GERD who presents to the [facility] ED on 06/14/23 w/ history of diffuse nonpleuritic sharp chest discomfort ongoing, initially waxing and waning however unfortunately it recurred awakening from sleep noted to be across the chest with associated dyspnea with no nausea, emesis or diaphoresis with radiation to bilateral jaw prompting eventual ED evaluation. #1. Chest Pain w/ Acute NSTEMI: EKG in ED w/ sinus rhythm with no acute evidence of ischemia, CXR w/ no acute cardiopulmonary findings. Trop elevated, 239. Will admit to PCU, maintain on a monitored bed, continue serial cardiac enzymes and EKGs. Obtain magnesium level upon admission. Start Heparin drip. Continue medical management w/ asa, add at least low to moderate back BB, add high dose statin w/ AM FLP. ECHO requested. Cardiology consulted, plan for cardiac catheterization. Maintain NPO after midnight. #2. Hypertension, uncontrolled: Per current list patient previously had been on agents including metoprolol and lisinopril, these of at some point falling off, will add back lisinopril 10 mg as well as metoprolol 25 mg twice daily, as needed IV hydralazine in the interim as well. #3. Hyperlipidemia: Will add high-dose statin, FLP in AM. #4. CAD: Status post previous PCI with intervention to the mid and distal RCA treated with 2 drug-eluting stents in a staged manner, will continue aspirin, Plavix, adding back high-dose statin as well as beta-harriet therapy and lisinopril. #5. Diabetes mellitus type II: Hold oral home regimen, ADA diet until n.p.o. status, hemoglobin A1c requested, accu checks w/ ISS. #6. Tobacco Abuse: Encouraged cessation, inpatient consultation per RT, NR if desired. #7. Obesity: Weight loss and lifestyle changes encouraged. #8. GERD: Will continue home PPI. #9. DVT prophylaxis: Continue heparin drip as noted. #10. CODE status: Patient does not have healthcare power of it infrastructure architect or living will in place but his would be his decision maker. Discussed CODE status at length including difference between FULL code, DNR-CCA and DNR-CC status. Following discussions about the differences in these status, requested Full Code status. Advanced Care Planning Face to Face Time: 16 minutes. Charges/Coding Visit Charges Inpatient E&M: 63491 Init Hosp L3 Procedures Hospitalists Procedures: 70689 Advncd Care Plan 30 Min
[2023-06-14 23:21] LABS: International Normalized Ratio 0.9; Partial Thromboplast Time 26.1 Seconds (24.1-36.2); Prothrombin Time (Protime)PT. 12.3 SECONDS (11.7-14.9)
[2023-06-14] MEDS: Nitroglycerin SL (ED/IMG/CATH) 0.4 MG TABLET SL (23:26)
[2023-06-14] MEDS: Heparin Injection (Vial) 5,000 UNIT/ML VIAL 4000 UNIT IV (23:31)
[2023-06-14] MEDS: HEPARIN/D5w 25,000 UNITS 25,000 UNITS/250 ML IV.SOLN. 10 UNITS CONT INF (23:34)
[2023-06-14 23:44] LABS: Reflex Troponin-HS? (from REC) Y
[2023-06-15] VITALS (18 sets, daily range): BP systolic 108–143; BP diastolic 65–81; PULSE 55–73; RESP 13–17; TEMP 35.9–36.8; O2SAT 94–99; BMI 31.6; BMI 31.5
--- NOTE | 2023-06-15 00:02 | EKG12_ITS ---
Test Reason : Blood Pressure : / mmHG Vent. Rate : 071 BPM Atrial Rate : 071 BPM P-R Int : 142 ms QRS Dur : 090 ms QT Int : 392 ms P-R-T Axes : 039 -43 036 degrees QTc Int : 425 ms Normal sinus rhythm Left axis deviation Abnormal ECG When compared with ECG of 14-JUN-2023 21:34, MANUAL COMPARISON REQUIRED, DATA IS UNCONFIRMED Confirmed by Rajat Zelaya ([id number]), editor house organ MISHA WILSON ([id number]) on 06/15/2023 1:35:13 PM Referred By: Devang Confirmed By:Rajat Zelaya
--- NOTE | 2023-06-15 00:08 | ECHOCS_ITS ---
Reason For Study: NSTEMI Procedure This was a 2D Doppler, Color Flow transthoracic echocardiogram. The study was technically difficult. Contrast injection was performed. Exam performed portable in ICU/CCU. Left Ventricle Normal size and thickness. The left ventricular ejection fraction is 55 %. Normal diastololic function. Right Ventricle Normal right ventricle. Atria The left and right atria are normal. Mitral Valve The mitral valve is structurally normal. No prolapse or stenosis seen. Tricuspid Valve Normal tricuspid valve. Aortic Valve Trisinus/trileaflet aortic valve. Pulmonic Valve The pulmonic valve is not well visualized. Great Vessels Normal sized aortic root. Pericardium/Pleural No pericardial effusion. Medication Diluted definity 3.0ml given slow IV push to enhance endocardial definition. MMode/2D Measurements & Calculations LVIDd: 5.3 cm IVSd: 1.0 cm Ao root diam: 3.4 cm LVIDs: 3.5 cm LVPWd: 1.1 cm RVDd: 2.9 cm FS: 32.6 % LAV(MOD-bp): 77.9 ml EDV(MOD-sp4): 124.8 ml EDV(MOD-sp2): 94.4 ml LAV(MOD-bp) Indexed: 32.3 ml/m2 ESV(MOD-sp4): 52.8 ml ESV(MOD-sp2): 45.6 ml LAV(MOD-sp2): 72.7 ml EF(MOD-sp4): 57.7 % EF(MOD-sp2): 51.6 % LAV(MOD-sp4): 82.7 ml SV(MOD-sp4): 72.0 ml SV(MOD-sp2): 48.7 ml LA A4 area: 24.6 cm2 LA dimension(2D): 4.0 cm TAPSE: 2.1 cm Time Measurements MV dec time: 0.21 sec Doppler Measurements & Calculations MV E max sammy: 54.8 cm/sec Lat Peak E' Sammy: 11.5 cm/sec Med Peak E' Sammy: 9.6 cm/sec MV A max sammy: 41.6 cm/sec E/E' lat: 4.8 E/E' med: 5.7 MV E/A: 1.3 MV V2 max: 61.2 cm/sec MV P1/2t max sammy: 61.2 cm/sec Ao V2 max: 101.5 cm/sec MV max P.5 mmHg MV P1/2t: 69.9 msec Ao max P.1 mmHg MV V2 mean: 34.3 cm/sec MV dec slope: 256.2 cm/sec2 Ao V2 mean: 71.9 cm/sec MV mean P.55 mmHg Ao mean P.3 mmHg MV V2 VTI: 19.5 cm MVA(P1/2t): 3.1 cm2 Ao V2 VTI: 23.7 cm AV (velocity ratio): 1.1 LV V1 max: 102.0 cm/sec PA V2 max: 83.2 cm/sec LV V1 max P.2 mmHg PA V2 mean: 54.5 cm/sec LV V1 mean P.0 mmHg LV V1 mean: 64.9 cm/sec LV V1 VTI: 25.2 cm ECHO/Echo Complete W/ Contrast Interpretation Summary The left ventricular ejection fraction is 55 %. Ordering Physician: Lashawn Siddiqi Referring Physician: PANKAJ PCP Performed By: Rubi Joseph, MIGUEL, RVT
[2023-06-15] MEDS: HEPARIN/D5w 25,000 UNITS 25,000 UNITS/250 ML IV.SOLN. 10 UNITS CONT INF (00:15)
[2023-06-15 00:20] LABS: Troponin-I HS 271 pg/mL (3.0-78.0)
[2023-06-15 00:25] LABS: Magnesium 2.2 mg/dL (1.6-2.6)
[2023-06-15] MEDS: 0.9% Normal Saline (1000mL) 1,000 ML 100 ML IV (00:55)
[2023-06-15] MEDS: Metoprolol Tartrate 25 MG Tablet PO ×2 (01:17→11:01)
[2023-06-15] MEDS: Morphine 2 MG/ML Syringe IV (01:35)
[2023-06-15] MEDS: 0.9% Saline Lock 10 ML Syringe IV ×3 (01:36→05:32)
[2023-06-15 03:31] LABS: Absolute Lymphocyte Count 2.31 X10^3/uL (0.83-4.51); Absolute Neutrophil Count 2.8 X10^3/uL (2.0-7.7); Basophil# 0.06 X10^3/uL; Eosinophil# 0.11 X10^3/uL; Eosinophils% 1.9 % (0-5); Hematocrit 37.8 % (40-54); Hemoglobin 12.8 g/dL (13.0-16.5); Lymphocyte # 2.31 X10^3/ul (0.83-4.51); Lymphocyte % 40.2 % (19-41); Mean Corp Hgb Conc 33.9 g/dL (32-36); Mean Corpuscular Hgb 28.2 pg (27.0-32.0); Mean Corpuscular Volume 83.3 fL (80-94); Mean Platelet Vol. 9.8 fl (6.2-12.0); Monocyte# 0.46 X10^3/uL; NRBC Flagged by Analyzer 0 % (0-5); Neutrophil % 48.7 % (47-70); Platelet Count 210 K/mm3 (150-450); RBC Distribution Width CV 12.6 % (11.6-14.6); RBC Distribution Width SD 38.2 fl (35.1-43.9); Red Blood Count 4.54 M/mm3 (4.6-6.2); White Blood Count 5.8 K/mm3 (4.4-11.0)
[2023-06-15] MEDS: HYDROmorphone 1 MG/ML Syringe IV (03:38)
[2023-06-15 03:51] LABS: ALB/GLOB Ratio 1.1 RATIO (0.9-2.4); AST(SGOT) 10 U/L (15-37); Alanine Aminotransfer ALT/SGPT 23 U/L (16-61); Albumin, Serum 3.4 g/dL (3.2-5.0); Alkaline Phosphatase 60 U/L (45-117); Anion Gap 7 (5-15); BUN 17 mg/dL (7-18); BUN/Creat Ratio 18.5 RATIO (10-20); Calcium,Total 8.7 mg/dL (8.5-10.1); Chloride 107 mmol/L (98-107); Cholesterol 171 mg/dL (200); Creatinine, Serum 0.92 mg/dL (0.70-1.30); EST Glomerular Filtration Rate 93 mL/min (>60); Est Glom Filt Rate - Afr Amer 113 mL/min (>60); Estimated Creatinine Clearance 134.14 ml/min; Glucose 248 mg/dL (74-106); High Density Lipoprotein 29 mg/dL; Potassium 4.1 mmol/L (3.5-5.1); Protein, Total 6.4 g/dL (6.4-8.2); Sodium Level 139 mmol/L (136-145); Triglycerides 218 mg/dL; Very Low Density Lipoprotein 44 mg/dL (5-40)
[2023-06-15 05:13] LABS: Troponin-I HS 337 pg/mL (3.0-78.0)
[2023-06-15 05:54] LABS: Partial Thromboplast Time 29.9 Seconds (24.1-36.2)
[2023-06-15] MEDS: Heparin Injection (Vial) 5,000 UNIT/ML VIAL IV ×2 (06:42→13:51)
[2023-06-15 06:57] LABS: Bedside Glucose 227 mg/dL (74-106)
--- NOTE | 2023-06-15 08:17 | EKG12_ITS ---
Test Reason : chest pain Blood Pressure : / mmHG Vent. Rate : 061 BPM Atrial Rate : 061 BPM P-R Int : 138 ms QRS Dur : 094 ms QT Int : 410 ms P-R-T Axes : 023 -33 030 degrees QTc Int : 412 ms Normal sinus rhythm Left axis deviation Inferior infarct , age undetermined Abnormal ECG When compared with ECG of 15-JUN-2023 00:16, No significant change was found Confirmed by Rajat Zelaya ([id number]), assistant editor YUKI HOWELL ([id number]) on 06/21/2023 8:21:34 AM Referred By: Garcia Confirmed By:Rajat Zelaya
--- NOTE | 2023-06-15 08:32 | CON.PCM.CA_ITS ---
Assessment & Plan Assessment/Plan (1) Acute coronary syndrome: PLAN: The patient presented with chest pains that are not identical to what he had with his prior stenting procedures. It does remind him of that but it did not radiate down his right arm. However, his troponins were positive at 271 and 337 and he has been off all of his medications for at least a week and a half and some of them for over a month. Given the patient's previous stenting of the LAD circumflex and right coronary artery which was done in multiple segments I feel the patient should require undergo repeat left heart catheterization. The procedure risk/benefit and alternatives of the procedure were explained to the patient in detail he voiced understanding and agrees to proceed. This will be arranged with the Financial Assistance Specialist for later today. An echocardiogram was being performed as I was examining the patient it appears he has anterior apical and inferior wall motion abnormalities that are similar to what was described on his old echocardiogram. (2) History of coronary artery stent placement: PLAN: Patient has a history of stents in the proximal LAD at the time of a non- STEMI and SARAH grade II flow this was in July 2022 he was brought back and stents were placed in the proximal mid and distal right coronary artery August 28. He had previously had stents to the mid circumflex in 2020. The patient has been off his Plavix and aspirin for a week and a half. He was restarted Plavix on admission. (3) Hypertension: QUALIFIERS: Hypertension type: primary hypertension Qualified Code(s): I10 - Essential (primary) hypertension PLAN: The patient is not on any antihypertensive meds his blood pressures have been adequately controlled at rest in the hospital. (4) Hyperlipidemia: QUALIFIERS: Hyperlipidemia type: pure hypercholesterolemia Qualified Code(s): E78.00 - Pure hypercholesterolemia, unspecified PLAN: Total cholesterol this admission shows 171 triglycerides 218 LDL was 98 and HDL 29 consistent with his known diabetes and hyperlipidemia. The patient should reinstitute his statin therapy and dual antiplatelet therapy as well as his antihypertensive therapy. PLAN: Plan 1. Left heart catheterization and percutaneous revascularization as indicated later today. 2. Reinstitute atorvastatin 80 mg daily Plavix 75 mg daily aspirin 81 mg daily. 3. Reinstitute metoprolol 25 mg twice daily and lisinopril 10 mg daily for blood pressure and LV function. HPI Consult Data Date of Consult: 03/06/24 HPI Narrative Reason for Consultation: Chest pain with pos troponin HPI Narrative: NORBERTO REYES, is a 47 M who presents patient has a known history of coronary artery disease. He presented to emergency room with sharp shooting chest pains across his anterior chest wall yesterday. This was similar to what he had experienced in the past when he had his stents placed however it was not radiating down his right arm and it as it did previously. The patient has a history of stenting in August 2022 he ran out of his medications about a week and a half ago and has been off aspirin and Plavix since then. He is 8 months out from his intervention. The patient's previous echocardiogram had shown segmental wall motion abnormality in the anterior apical and inferior segments. The patient reports that the symptoms started suddenly but would wax and wane yesterday all day long. His enzymes were positive on initial presentation troponin 271 and subsequently it was 337. His EKG showed normal sinus rhythm at 80 bpm with a left anterior fascicular block and no acute ischemic changes. He had discontinued his blood pressure meds his lipid therapy and his dual ant iplatelet therapy about a week and a half ago due to running out of his medications. The most recent stenting was in July 2022 where he had slow SARAH grade II flow in the LAD this was treated with a drug-eluting stent and subsequently with the distal right coronary artery was stented. Previously in 2020 he had stenting of the circumflex. The patient had apical wall motion abnormality at the time of the intervention in July. The patient is diabetic he is on metformin but he reports that his physician no longer takes his insurance. He also is hyperlipidemic and has not been taking his statin therapy. He also continues to smoke about 1/2 pack/day which is a marked decrease from prior to his intervention. [facility] Medical History (Updated 06/15/23 @ 08:[address] Rajat Zelaya MD) Atherosclerosis of coronary artery without angina pectoris CAD (coronary artery disease) Diabetes mellitus Hyperlipidemia Hypertension NSTEMI (non-ST elevated myocardial infarction) Obesity Type 2 diabetes mellitus Home Medications metformin 1,000 mg tablet 1,000 mg PO BID #60 tabs 02/28/23 [Rx Last Taken Unknown] aspirin 81 mg tablet,delayed release 81 mg PO BREAKFAST #90 tabs 06/06/23 [Rx Last Taken Unknown] clopidogrel 75 mg tablet 75 mg PO DAILY #90 tabs 06/06/23 [Rx Last Taken Unknown] Allergy/AdvReac Type Severity Reaction Status Date / Time No Known Allergies Allergy Verified 04/19/23 18:48 Family History Mother Heart disease Hypertension CAD (coronary artery disease) Myocardial infarction Heart transplant recipient Father Heart disease Hypertension CAD (coronary artery disease) Myocardial infarction Surgical History History of coronary artery stent placement (07/20/22) Social History household members: spouse and children housing: house Smoking Status: Current every day smoker tobacco type: cigarettes Smoking packs per day: 0.5 Smoking cigarettes per day: 10.0 alcohol intake: current alcohol intake frequency: holidays/special occasions only Alcohol type: wine substance use type: does not use caffeine: Yes Type: coffee Number of servings: 5 ROS Constitutional Constitutional: Reports as per HPI Eyes Eyes: Reports systems reviewed and no addt'l complaints, except as documented ENT HEENT: Reports systems reviewed and no addt'l complaints, except as documented Cardiovascular Cardiovascular: Reports as per HPI Respiratory/Chest Respiratory/Chest: Reports as per HPI Gastrointestinal Gastrointestinal: Reports systems reviewed and no addt'l complaints, except as documented Genitourinary Genitourinary: Reports systems reviewed and no addt'l complaints, except as documented Musculoskeletal Musculoskeletal: Reports as per HPI Integumentary Integumentary: Reports systems reviewed and no addt'l complaints, except as d ocumented Neurologic Neurologic: Reports systems reviewed and no addt'l complaints, except as documented Psychiatric Psychiatric: Reports systems reviewed and no addt'l complaints, except as documented Endocrine Endocrinology: Reports as per HPI Hematologic/Lymphatic Hematologic/Lymphatic: Reports as per HPI Allergic/Immunologic Allergic/Immunologic: Reports systems reviewed and no addt'l complaints, except as documented Physical Exam Const oriented x3 HEENT normocephalic Eyes EOMs intact bilaterally Neck no JVD and no carotid bruits Neck Narrative: Full smith. Chest inspection of chest normal Resp normal respiratory effort Auscultation: crackles bilateral lower Cardio regular rate, regular rhythm, S1 normal heart sound, S2 normal heart sound, no murmurs, no rub and no gallops Peripheral Pulses: pulses 2+ throughout GI soft to palpation and no bruits Extremity no pedal edema Skin no rashes or lesions noted Neuro Neuro Narrative: Alert and oriented x 3 Psych mental status grossly normal Risk Stratification Risk Stratification Applicable: Yes Age >/= 65: No >/= 3 CAD Risk Factors (HTN, HLD, DM, family hx of CAD, or current smoker): Yes Aspirin Use in the Past 7 Days: No Severe Angina (>/= episodes in 24 hours): Yes EKG ST Changes >/= 0.5mm: No Positive Cardiac Marker: Yes SARAH Risk Stratification Score: 3 SARAH % Risk: 13% Risk Charges/Coding Visit Charges Inpatient E&M: 73706 Init Hosp L3 Objective Data Vital Signs: Vital Signs Temp Pulse Resp BP Pulse Ox O2 Del Method 96.7 F L 63 17 117/70 96 Room Air 06/15/23 05:20 06/15/23 05:20 06/15/23 05:20 06/15/23 05:20 06/15/23 05:20 06/15/23 05:20 Oxygen Delivery Method Room Air Weight: 252 lb 6.868 oz Body Mass Index (BMI) 31.5 Intake & Output: Intake and Output for Last 24 Hours 06/13/23 06/14/23 06/15/23 23:59 23:59 23:59 Intake Total 71.50 / 71.50 Output Total 500 / 500 Balance -428.50 / -428.50 Lab / Micro Data Attestation: I reviewed the patient's lab results. 06/15/23 03:25 06/15/23 03:25 Labs: Laboratory Results - last 24 hr 06/14/23 21:42: WBC 6.6, RBC 4.96, Hgb 13.8, Hct 40.6, MCV 81.9, MCH 27.8, MCHC 34.0, RDW Std Deviation 36.5, RDW Coeff of Sebastián 12.4, Plt Count 242, MPV 9.7, Immature Gran % (Auto) 0.200, Neut % (Auto) 52.3, Lymph % (Auto) 35.5, [place] % (Auto) 8.8, Eos % (Auto) 2.4, Baso % (Auto) 0.8, Absolute Neuts (auto) 3.4, Absolute Lymphs (auto) 2.33, Nucleated RBC % 0, PT 12.3, INR 0.9, APTT 26.1, Sodium 137, Potassium 4.6, Chloride 107, Carbon Dioxide 26.0, Anion Gap 4 L, BUN 18, Creatinine 1.09, Est GFR (MDRD) Af Amer 93, Est GFR (MDRD) Non-Af 76, BUN/Creatinine Ratio 16.5, Glucose 252 H, Calcium 9.4, Troponin I High Sens 239 H* 06/14/23 23:50: Magnesium 2.2, Troponin I High Sens 271 H* 06/15/23 03:25: WBC 5.8, RBC 4.54 L, Hgb 12.8 L, Hct 37.8 L, MCV 83.3, MCH 28.2, MCHC 33.9, RDW Std Deviation 38.2, RDW Coeff of Sebastián 12.6, Plt Count 210, MPV 9.8, Immature Gran % (Auto) 0.200, Neut % (Auto) 48.7, Lymph % (Auto) 40.2, [place] % (Auto) 8.0, Eos % (Auto) 1.9, Baso % (Auto) 1.0, Absolute Neuts (auto) 2.8, Absolute Lymphs (auto) 2.31, Nucleated RBC % 0, Sodium 139, Potassium 4.1, Chloride 107, Carbon Dioxide 25.0, Anion Gap 7, BUN 17, Creatinine 0.92, Estim Creat Clear Calc 134.14, Est GFR (MDRD) Af Amer 113, Est GFR (MDRD) Non-Af 93, BUN/Creatinine Ratio 18.5, Glucose 248 H, Calcium 8.7, Total Bilirubin 0.40, AST 10 L, ALT 23, Alkaline Phosphatase 60, Troponin I High Sens 337 H*, Total Protein 6.4, Albumin 3.4, Globulin 3.0, Albumin/Globulin Ratio 1.1, Triglycerides 218 H, Cholesterol 171, LDL Cholesterol 98, VLDL Cholesterol 44 H, HDL Cholesterol 29 L 06/15/23 05:30: APTT 29.9 06/15/23 06:34: POC Glucose 227 H Rhythm Strip Rhythm Strip: Sinus Rhythm Rate: 80 Ectopy: None Cardiology Labs/Tests 06/14/23 21:42: WBC 6.6, RBC 4.96, Hgb 13.8, Hct 40.6, MCV 81.9, MCH 27.8, MCHC 34.0, Plt Count 242, MPV 9.7, Immature Gran % (Auto) 0.200, Neut % (Auto) 52.3, Lymph % (Auto) 35.5, [place] % (Auto) 8.8, Eos % (Auto) 2.4, Baso % (Auto) 0.8, Absolute Neuts (auto) 3.4, Nucleated RBC % 0, PT 12.3, INR 0.9, APTT 26.1, Sodium 137, Potassium 4.6, Chloride 107, Carbon Dioxide 26.0, Anion Gap 4 L, BUN 18, Creatinine 1.09, Est GFR (MDRD) Af Amer 93, Est GFR (MDRD) Non-Af 76, BUN/Creatinine Ratio 16.5, Glucose 252 H, Calcium 9.4 06/14/23 23:50: Magnesium 2.2 06/15/23 03:25: WBC 5.8, RBC 4.54 L, Hgb 12.8 L, Hct 37.8 L, MCV 83.3, MCH 28.2, MCHC 33.9, Plt Count 210, MPV 9.8, Immature Gran % (Auto) 0.200, Neut % (Auto) 48.7, Lymph % (Auto) 40.2, [place] % (Auto) 8.0, Eos % (Auto) 1.9, Baso % (Auto) 1.0, Absolute Neuts (auto) 2.8, Nucleated RBC % 0, Sodium 139, Potassium 4.1, Chloride 107, Carbon Dioxide 25.0, Anion Gap 7, BUN 17, Creatinine 0.92, Est GFR (MDRD) Af Amer 113, Est GFR (MDRD) Non-Af 93, BUN/Creatinine Ratio 18.5, Glucose 248 H, Calcium 8.7, Total Bilirubin 0.40, Triglycerides 218 H, Cholesterol 171, LDL Cholesterol 98, VLDL Cholesterol 44 H, HDL Cholesterol 29 L 06/15/23 05:30: APTT 29.9 Rhythm: EKG: ECHO: Stress Test: Cardiac Cath: PCI: CT Surgery: Holter monitor: EPS: PPM: CXR: Chest CT Scan: Radiography Diagnostic Testing: Radiology Impression Chest X-Ray 06/14/23 21:50 IMPRESSION: No evidence of active intrathoracic disease. Electronically Signed: Missy Hooper MD at 22:09 EST , EKG Follow-up EKG: Attestation: I personally reviewed and interpreted this EKG as follows: Interpretation: ECG with chest symptoms this morning. Normal sinus rhythm 80 bpm left anterior fascicular block no acute ischemic changes
[2023-06-15] MEDS: Aspirin E.C. 81 MG Tablet PO (09:12)
[2023-06-15] MEDS: Morphine 4 MG/ML Syringe IV (09:16)
--- NOTE | 2023-06-15 10:42 | CASEMGMT ---
PARTH CORTEZ Assessment Face to Face with patient for initial transition planning/care coordination assessment. PARTH CORTEZ introduced self and role at [facility], pt voices understanding. Pt is A&Ox4 and is resting comfortably in bed and is calm. Care providers, pharmacy, and demographics verified. Admitting dx: NSTEMI LACE Strata: 2 PCP: No PCP. Pt states that he has been going to [facility] but they are requiring the pt to switch insurances. Pt states that he is in the process of changing insurances to be able to be seen at [facility]. Pt denies the need for a PCP list at this time. Specialists: Denies Preferred Pharmacy: [facility] in [place] Insurance: REBECCA/ AMERI Prescription Benefit: Yes LNOK: Mariann Sanchez (W) Living Arrangements: Pt lives with his and 5 children in a two story home with a BM with handrails throughout, and 3 steps to enter with a handrail with no issues. ADLs/IADLs: Ind Transportation: Pt drives. Pt or one of his children can drive the pt (age 18 and 20). DME: [employer] at home but does not use. Pt denies all other DME uses or needs. HHC/SNF: Denies history or needs. Pt?s goal: Home Plan: 6 click is 24. Pt denies additional needs at this time. Dr. Dior states the pt is planned for a cardiac cath today and will DC later today or tomorrow with no needs. Dr. Dior states that we do not need to create a tertiary list for the pt. Plan is to DC home with no additional needs at this time. Mabel Morelos RN, CM
[2023-06-15 10:52] LABS: Hemoglobin A1c 9.4 % (3.8-5.6)
[2023-06-15] MEDS: Lisinopril 10 MG Tablet PO (11:01)
[2023-06-15 12:18] LABS: Bedside Glucose 217 mg/dL (74-106)
--- NOTE | 2023-06-15 13:20 | PCM.PN.HOSP ---
Reason for Visit Reason for Visit: Diagnoses Pure hypercholesterolemia, unspecified (06/14/23) Essential (primary) hypertension (06/14/23) Non-ST elevation (NSTEMI) myocardial infarction (06/14/23) Acute ischemic heart disease, unspecified (06/14/23) Presence of coronary angioplasty implant and graft (06/14/23) Objective Data Objective Data Vital Signs: Vital Signs Temp Pulse Resp BP Pulse Ox O2 Del Method O2 Flow Rate 97.3 F L 60 17 143/81 H 95 Nasal Cannula 2 06/15/23 09:00 06/15/23 11:01 06/15/23 09:00 06/15/23 11:00 06/15/23 09:49 06/15/23 09:49 06/15/23 09:49 Oxygen Flow Rate (L/min) 2 Oxygen Delivery Method Nasal Cannula Weight: 114.5 kg Body Mass Index (BMI) 31.5 Intake & Output: Intake and Output for Last 24 Hours 06/13/23 06/14/23 06/15/23 23:59 23:59 23:59 Intake Total 1071.50 / 1071.50 Output Total 500 / 500 Balance 571.50 / 571.50 Lab / Micro Data 06/15/23 03:25 06/15/23 03:25 Labs: Laboratory Results - last 24 hr 06/14/23 21:42: WBC 6.6, RBC 4.96, Hgb 13.8, Hct 40.6, MCV 81.9, MCH 27.8, MCHC 34.0, RDW Std Deviation 36.5, RDW Coeff of Sebastián 12.4, Plt Count 242, MPV 9.7, Immature Gran % (Auto) 0.200, Neut % (Auto) 52.3, Lymph % (Auto) 35.5, [place] % (Auto) 8.8, Eos % (Auto) 2.4, Baso % (Auto) 0.8, Absolute Neuts (auto) 3.4, Absolute Lymphs (auto) 2.33, Nucleated RBC % 0, PT 12.3, INR 0.9, APTT 26.1, Sodium 137, Potassium 4.6, Chloride 107, Carbon Dioxide 26.0, Anion Gap 4 L, BUN 18, Creatinine 1.09, Est GFR (MDRD) Af Amer 93, Est GFR (MDRD) Non-Af 76, BUN/Creatinine Ratio 16.5, Glucose 252 H, Calcium 9.4, Troponin I High Sens 239 H* 06/14/23 23:50: Magnesium 2.2, Troponin I High Sens 271 H* 06/15/23 03:25: WBC 5.8, RBC 4.54 L, Hgb 12.8 L, Hct 37.8 L, MCV 83.3, MCH 28.2, MCHC 33.9, RDW Std Deviation 38.2, RDW Coeff of Sebastián 12.6, Plt Count 210, MPV 9.8, Immature Gran % (Auto) 0.200, Neut % (Auto) 48.7, Lymph % (Auto) 40.2, [place] % (Auto) 8.0, Eos % (Auto) 1.9, Baso % (Auto) 1.0, Absolute Neuts (auto) 2.8, Absolute Lymphs (auto) 2.31, Nucleated RBC % 0, Sodium 139, Potassium 4.1, Chloride 107, Carbon Dioxide 25.0, Anion Gap 7, BUN 17, Creatinine 0.92, Estim Creat Clear Calc 134.14, Est GFR (MDRD) Af Amer 113, Est GFR (MDRD) Non-Af 93, BUN/Creatinine Ratio 18.5, Glucose 248 H, Hemoglobin A1c 9.4 H, Calcium 8.7, Total Bilirubin 0.40, AST 10 L, ALT 23, Alkaline Phosphatase 60, Troponin I High Sens 337 H*, Total Protein 6.4, Albumin 3.4, Globulin 3.0, Albumin/Globulin Ratio 1.1, Triglycerides 218 H, Cholesterol 171, LDL Cholesterol 98, VLDL Cholesterol 44 H, HDL Cholesterol 29 L 06/15/23 05:30: APTT 29.9 06/15/23 06:34: POC Glucose 227 H 06/15/23 12:00: POC Glucose 217 H Radiography Diagnostic Testing: Radiology Impression Chest X-Ray 06/14/23 21:50 IMPRESSION: No evidence of active intrathoracic disease. Electronically Signed: Missy Hooper MD at 22:09 EST , Echocardiogram 06/15/23 00:08 Interpretation Summary The left ventricular ejection fraction is 55 %. Ordering Physician: Lashawn Siddiqi Referring Physician: PANKAJ PCP Performed By: Rubi Joseph RDCS, RVT Rhythm Strip Rhythm Strip: Sinus Rhythm Rate: 80 Ectopy: None
[2023-06-15 13:44] LABS: Partial Thromboplast Time 28.6 Seconds (24.1-36.2)
[2023-06-15] MEDS: Clopidogrel Bisulfate 75 MG Tablet PO (13:50)
[2023-06-15] MEDS: Insulin Lispro 100 UNIT/ML INSULN.PEN SC (17:02)
[2023-06-15 18:02] LABS: Bedside Glucose 151 mg/dL (74-106)
--- NOTE | 2023-06-15 19:16 | DCINST_ITS ---
Discharge Instructions Diet Discharge Diet: No restrictions Activity Discharge Activity: No Restrictions Weight Bearing Status: Full weight bearing Follow Up Care Test Results: Test results from this visit will be discussed in further detail at your follow- up appointment, if applicable. Discharge Plan Admission Admit Date/Time: 06/14/23 23:18 Primary Reason for Your Visit: chest pain Attending Provider: Osiel Dior Primary Care Provider: Enrique Physician,Jessica Primary Consulting Providers: Rajat Zelaya; Lashawn Siddiqi Instructions Additional Instructions / Restrictions: Please take new medications as prescribed below. Follow up with Cardiology as instructed by them. Discharge Orders/Prescriptions Prescriptions: New atorvastatin 80 mg Tablet 80 mg PO QHS 30 Days Qty: 30 0RF lisinopril 10 mg Tablet 10 mg PO DAILY 30 Days Qty: 30 0RF metoprolol tartrate 25 mg Tablet 25 mg PO BID 30 Days Qty: 60 0RF Continued metformin 1,000 mg tablet 1,000 mg PO BID Qty: 60 0RF aspirin 81 mg tablet,delayed release (DR/EC) 81 mg PO BREAKFAST Qty: 90 1RF clopidogrel 75 mg tablet 75 mg PO DAILY Qty: 90 1RF Referrals / Follow Up: Care Physician,No Primary [Primary Care Provider] - Disposition Disposition (needs filled in before D/C Order can be placed): Home, Self Care
--- NOTE | 2023-06-15 19:19 | PCM.DC.SUM ---
Providers Date of Admission: 06/14/23 Date of Discharge: 06/15/23 Primary Care Physician: Jessica Primary Care Phys Consultations 06/15/23 00:08 Consult: Cardiology Routine Consulting Provider: Rajat Zelaya Reason for Consult: Chest Pain, NSTEMI EMERGENT Consult: No MD Notified: Yes Date Notified: 06/15/23 Time Notified: 00:01 Method of Notification: ED Physician Initiated Reason For Visit: NSTEMI Diagnosis Discharge Diagnosis (1) Acute coronary syndrome: Status: Acute Code(s): I24.9 - Acute ischemic heart disease, unspecified (2) History of coronary artery stent placement: Status: Chronic Code(s): Z95.5 - Presence of coronary angioplasty implant and graft (3) Hypertension: Status: Chronic Code(s): I10 - Essential (primary) hypertension Qualifiers: Hypertension type: primary hypertension Qualified Code(s): I10 - Essential (primary) hypertension (4) Hyperlipidemia: Status: Acute Code(s): E78.5 - Hyperlipidemia, unspecified Qualifiers: Hyperlipidemia type: pure hypercholesterolemia Qualified Code(s): E78.00 - Pure hypercholesterolemia, unspecified Medications at Discharge Home Medications metformin 1,000 mg tablet 1,000 mg PO BID #60 tabs 02/28/23 aspirin 81 mg tablet,delayed release 81 mg PO BREAKFAST #90 tabs 06/06/23 clopidogrel 75 mg tablet 75 mg PO DAILY #90 tabs 06/06/23 atorvastatin 80 mg tablet 80 mg PO QHS 30 days #30 tabs 06/15/23 lisinopril 10 mg tablet 10 mg PO DAILY 30 days #30 tabs 06/15/23 metoprolol tartrate 25 mg tablet 25 mg PO BID 30 days #60 tabs 06/15/23 Hospital Course Operations None Procedures Cardiac catheterization, EKG, Transthoracic echo and - (X-ray) Summary of Care Provided Minutes Spent on Discharge: 35 Hospital Course: Patient is a 47-year-old male who presented [facility] ED on 06/14/2023 with chest pain. 1. NSTEMI, history of CAD s/p stenting ? History of prior NSTEMI in July 2022 with stenting to proximal LAD, then was brought back in August 2022 for staged PCI with stenting to mid and distal RCA. Also previously had stents to the mid circumflex in 2020. ? Presented with chest pain fairly similar to previous symptoms, although this pain did not radiate down his right arm as it had previously. Patient noted he had been off all medications for at least 1.5 weeks and some for over 1 month prior to admission as he had run out of them. ? Troponin trend 239 > 271 > 337. EKG showed normal sinus rhythm, no ischemic changes. ? TTE on 06/14 showed EF 55%, normal diastolic function, no significant valve abnormalities. ? Cardiology followed. S/p left heart cath on 06/14 with previous stents patent, no other acute lesions, no stents placed. Started on lisinopril and Lopressor during admission and tolerated these well, will continue this on discharge. Continue baby aspirin, atorvastatin 80 mg daily, Plavix 75 mg daily on discharge. 2. Hypertension ? Not on any antihypertensives on admission but does have known history of hypertension per patient. Started on lisinopril and Lopressor on discharge as noted above. 3. Type 2 diabetes mellitus ? Home regimen of metformin 1000 mg twice daily. A1c 9.4% on admit. Sliding scale insulin with meals while inpatient, okay to resume home regimen on discharge but strongly recommend follow-up with PCP to likely add additional oral medications for improved diabetes control. Chronic medical conditions: ? Hyperlipidemia: Lipid panel on admit as noted above. Discharged on high-dose statin as noted above. ? Obesity: BMI 31 on admit. Encouraged lifestyle modifications. Complicated hospital course, care progress. ? Tobacco abuse: Strongly encouraged cessation. Nicotine patch provided per patient request while inpatient. ? GERD: Continue home PPI. Total clinical time spent by myself addressing the patient's medical issues, reviewing all the data, and collaborating with patient's care team: 35 minutes. Physical Exam Const alert, oriented x3 and no apparent distress Constitutional Narrative: Pleasant middle-age male, obese, sitting appropriately in bed, conversing normally, no acute distress. General Appearance: cooperative and comfortable HEENT normocephalic, head/scalp atraumatic, hearing grossly normal bilaterally, nasal mucous membranes and turbinates normal and moist oral mucous membranes Eyes PERRL, EOMs intact bilaterally and conjunctivae normal Neck full ROM Chest inspection of chest normal Resp normal respiratory effort, normal air movement, no use of accessory muscles and clear to auscultation bilaterally Cardio regular rate, regular rhythm, no murmurs and peripheral pulses 2+ throughout GI normal to inspection, nondistended, normoactive bowel sounds, soft to palpation, non-tender and non-distended Back/Spine normal ROM Extremity normal to inspection, full ROM and no pedal edema Skin no rashes or lesions noted Neuro no focal motor deficits and no sensory deficits noted Speech: speech normal Psych mental status grossly normal Weight / BMI Weight Weight: 114.5 kg Body Mass Index (BMI) 31.5 ABG / Lab / Microbiology Data 06/15/23 03:25 06/15/23 03:25 Laboratory: Laboratory Results - last 24 hr 06/14/23 21:42: WBC 6.6, RBC 4.96, Hgb 13.8, Hct 40.6, MCV 81.9, MCH 27.8, MCHC 34.0, RDW Std Deviation 36.5, RDW Coeff of Sebastián 12.4, Plt Count 242, MPV 9.7, Immature Gran % (Auto) 0.200, Neut % (Auto) 52.3, Lymph % (Auto) 35.5, [place] % (Auto) 8.8, Eos % (Auto) 2.4, Baso % (Auto) 0.8, Absolute Neuts (auto) 3.4, Absolute Lymphs (auto) 2.33, Nucleated RBC % 0, PT 12.3, INR 0.9, APTT 26.1, Sodium 137, Potassium 4.6, Chloride 107, Carbon Dioxide 26.0, Anion Gap 4 L, BUN 18, Creatinine 1.09, Est GFR (MDRD) Af Amer 93, Est GFR (MDRD) Non-Af 76, BUN/Creatinine Ratio 16.5, Glucose 252 H, Calcium 9.4, Troponin I High Sens 239 H* 06/14/23 23:50: Magnesium 2.2, Troponin I High Sens 271 H* 06/15/23 03:25: WBC 5.8, RBC 4.54 L, Hgb 12.8 L, Hct 37.8 L, MCV 83.3, MCH 28.2, MCHC 33.9, RDW Std Deviation 38.2, RDW Coeff of Sebastián 12.6, Plt Count 210, MPV 9.8, Immature Gran % (Auto) 0.200, Neut % (Auto) 48.7, Lymph % (Auto) 40.2, [place] % (Auto) 8.0, Eos % (Auto) 1.9, Baso % (Auto) 1.0, Absolute Neuts (auto) 2.8, Absolute Lymphs (auto) 2.31, Nucleated RBC % 0, Sodium 139, Potassium 4.1, Chloride 107, Carbon Dioxide 25.0, Anion Gap 7, BUN 17, Creatinine 0.92, Estim Creat Clear Calc 134.14, Est GFR (MDRD) Af Amer 113, Est GFR (MDRD) Non-Af 93, BUN/Creatinine Ratio 18.5, Glucose 248 H, Hemoglobin A1c 9.4 H, Calcium 8.7, Total Bilirubin 0.40, AST 10 L, ALT 23, Alkaline Phosphatase 60, Troponin I High Sens 337 H*, Total Protein 6.4, Albumin 3.4, Globulin 3.0, Albumin/Globulin Ratio 1.1, Triglycerides 218 H, Cholesterol 171, LDL Cholesterol 98, VLDL Cholesterol 44 H, HDL Cholesterol 29 L 06/15/23 05:30: APTT 29.9 06/15/23 06:34: POC Glucose 227 H 06/15/23 12:00: POC Glucose 217 H 06/15/23 13:05: APTT 28.6 06/15/23 16:57: POC Glucose 151 H Radiography Diagnostic Testing: Radiology Impression Chest X-Ray 06/14/23 21:50 IMPRESSION: No evidence of active intrathoracic disease. Electronically Signed: Missy Hooper MD at 22:09 EST , Echocardiogram 06/15/23 00:08 Interpretation Summary The left ventricular ejection fraction is 55 %. Ordering Physician: Lashawn Siddiqi Referring Physician: NO PCP Performed By: Rubi Joseph, MIGUEL, RVT D/C Instructions Discharge Diet: No restrictions Weight Bearing Status: Full weight bearing Meaningful Use Info Meaningful Use Diagnoses (Choose all that apply): None applicable Discharge Plan Admission Admit Date/Time: 06/14/23 23:18 Primary Reason for Your Visit: chest pain Attending Provider: Osiel Dior Primary Care Provider: Care Physician,No Primary Consulting Providers: Rajat Zelaya; Lashawn Siddiqi Instructions Additional Instructions / Restrictions: Please take new medications as prescribed below. Follow up with Cardiology as instructed by them. Discharge Orders/Prescriptions Prescriptions: New atorvastatin 80 mg Tablet 80 mg PO QHS 30 Days Qty: 30 0RF lisinopril 10 mg Tablet 10 mg PO DAILY 30 Days Qty: 30 0RF metoprolol tartrate 25 mg Tablet 25 mg PO BID 30 Days Qty: 60 0RF Continued metformin 1,000 mg tablet 1,000 mg PO BID Qty: 60 0RF aspirin 81 mg tablet,delayed release (DR/EC) 81 mg PO BREAKFAST Qty: 90 1RF clopidogrel 75 mg tablet 75 mg PO DAILY Qty: 90 1RF Referrals / Follow Up: Care Physician,No Primary [Primary Care Provider] - Disposition Disposition (needs filled in before D/C Order can be placed): Home, Self Care Charges/Coding Visit Charges Inpatient E&M: 23444 Disch Hosp >30min
--- NOTE | 2023-06-20 09:15 | CL.D_ITS ---
Patient Name: NORBERTO REYES Study Date: 06/15/2023 Performing: Matthieu Katz MD Ht: 75 inches 190.5 cm : 1975 Wt: 252.8 lbs 114.5 kg Age: 47 Gender: male BSA: 2.42 PROCEDURE(S) PERFORMED DC01-(20888)LHC/COR/LV CLINICAL PROFILE AND INDICATIONS Indications: Suspected CAD Heart Failure: None Stress/Imaging Stress/Image Study Performed: No CAD Presentations: Stable angina. CONCLUSIONS Non obstructive coronary arteries RECOMMENDATIONS Medical therapy DESCRIPTION OF PROCEDURE The patient arrived to the procedure lab. The risks and benefits of the procedure as well as a full description of our services here and current unavailability of surgical backup were fully explained to the patient and/or their significant other prior to the catheterization. The Timeout was completed, verifying the correct patient and procedure. The patient's procedural site was prepped and draped in the usual fashion. Local anesthetic was given subcutaneously to right radial region with Lidocaine 2%. Using a modified Seldinger technique, arterial access was obtained via the right radial artery, a 6Fr sheath was inserted. Right Coronary Artery selective angiography was then performed in multiple views using a 5 Fr. 4.0 [place] catheter. Left Coronary Artery selective angiography was performed in multiple views using a 5 Fr. 4.0 [place] catheter. Left Ventriculography was performed in HANSEN projection using a 5 Fr. Pigtail catheter. LV to AO pullback pressures were then recorded.The arterial sheath was pulled and a TR Band was applied for hemostasis. 10cc air CORONARY ANGIOGRAPHY DOMINANCE: Right Dominant LEFT HEART ASSESSMENT Left Ventricular Ejection Fraction: by LV Gram 60 % Normal LV wall motion Normal Left Ventricular systolic function LEFT MAIN: Angiographically normal, No significant disease noted LEFT ANTERIOR DESCENDING ARTERY: The mid LAD is noted to have a long stent with mild in-stent stenosis and good SARAH-3 flow. CIRCUMFLEX ARTERY: Proximal circumflex artery is noted however previously placed stent with no significant in-stent stenosis. 2 branches of the circumflex artery also obtuse marginal branches have no significant stenosis present. RIGHT CORONARY ARTERY: Dominant right coronary artery with previously placed stent with mild in-stent stenosis. COMPLICATIONS No Complications PROCEDURE MEDICATIONS Fentanyl 50 mcg IV Versed 1 mg IV Oxygen: 2 L/min via nasal cannula Heparin given IA 06/15/2023 16:04:07 Verapamil 2.5mg, Ntg 100mcgs, 3000 units of Heparin given IA 06/15/2023 16:04:07 SUMMARY OF HEMODYNAMIC DATA Time AIR REST ECG 15:47:04 AO 100/67 (81) SA 16:08:32 LV 105/13, 20 16:14:17 LV 102/15, 20 16:14:25 LV 100/15, 21 16:14:58 LVp 101/15, 20 16:15:02 AOp 106/61 (81) 16:15:09 Signed By Matthieu Katz MD On 06/20/2023 09:14:16 Matthieu Katz MD
== END 2023-06-15 20:03 | disposition home or self-care (01) | DRG 192 ==
LOC: ED 22:28 → ICU 23:32
PROVIDERS: Admitting Provider Family Medicine; Emergency Provider Emergency Medicine; Visit Provider Hospitalist
DX: T82.855A Stenosis of coronary artery stent, initial encounter (principal); I5A Non-ischemic myocardial injury (non-traumatic); E11.9 Type 2 diabetes mellitus without complications; I25.118 Atherosclerotic heart disease of native coronary artery with other forms of angina pectoris; I10 Essential (primary) hypertension; K21.9 Gastro-esophageal reflux disease without esophagitis; E78.00 Pure hypercholesterolemia, unspecified; F17.210 Nicotine dependence, cigarettes, uncomplicated; I25.2 Old myocardial infarction; E66.9 Obesity, unspecified; Y71.2 Prosthetic and other implants, materials and accessory cardiovascular devices associated with adverse incidents; T46.4X6A Underdosing of angiotensin-converting-enzyme inhibitors, initial encounter; T44.7X6A Underdosing of beta-adrenoreceptor antagonists, initial encounter; Z91.148 Patient's other noncompliance with medication regimen for other reason; Z68.31 Body mass index [BMI] 31.0-31.9, adult; Z79.84 Long term (current) use of oral hypoglycemic drugs; Z79.82 Long term (current) use of aspirin; Z79.02 Long term (current) use of antithrombotics/antiplatelets; Z95.5 Presence of coronary angioplasty implant and graft
CPT/HCPCS: 71045; 80048; 80053; 80061; 82962; 83036; 83735; 84484; 85025; 85610; 85730; 93005; 93306; 93458; 94668; 97802; 99152; 99153; 99284; J7030; Q9957; A4216; C1769; C1894; C8929; Q9967

== ENCOUNTER → 2023-06-29 | Outpatient (CLI) | payer MEDICAID, SELFPAY ==
[2023-06-29 12:31] LABS: Absolute Lymphocyte Count 2.15 X10^3/uL (0.83-4.51); Absolute Neutrophil Count 4.1 X10^3/uL (2.0-7.7); Basophil# 0.04 X10^3/uL; Basophil% 0.6 % (0-1); Eosinophil# 0.13 X10^3/uL; Eosinophils% 1.9 % (0-5); Hematocrit 43.4 % (40-54); Hemoglobin 14.8 g/dL (13.0-16.5); Lymphocyte # 2.15 X10^3/ul (0.83-4.51); Lymphocyte % 30.9 % (19-41); Mean Corp Hgb Conc 34.1 g/dL (32-36); Mean Corpuscular Hgb 28.4 pg (27.0-32.0); Mean Corpuscular Volume 83.3 fL (80-94); Mean Platelet Vol. 10.1 fl (6.2-12.0); Monocyte# 0.51 X10^3/uL; Monocyte% 7.3 % (0-10); NRBC Flagged by Analyzer 0 % (0-5); Platelet Count 245 K/mm3 (150-450); RBC Distribution Width CV 12.3 % (11.6-14.6); RBC Distribution Width SD 37.3 fl (35.1-43.9); Red Blood Count 5.21 M/mm3 (4.6-6.2)
[2023-06-29 13:09] LABS: Vitamin D,25 Hydroxy 12.9 ng/mL
[2023-06-29 13:15] LABS: Anion Gap 5 (5-15); BUN 15 mg/dL (7-18); BUN/Creat Ratio 14.7 RATIO (10-20); Calcium,Total 9.2 mg/dL (8.5-10.1); Chloride 104 mmol/L (98-107); Creatinine, Serum 1.02 mg/dL (0.70-1.30); EST Glomerular Filtration Rate 83 mL/min (>60); Est Glom Filt Rate - Afr Amer 100 mL/min (>60); Free T3 2.6 pg/mL (2.18-3.98); Glucose 248 mg/dL (74-106); Magnesium 2.3 mg/dL (1.6-2.6); Potassium 4.1 mmol/L (3.5-5.1); Sodium Level 135 mmol/L (136-145); T4 Free Direct 1.12 ng/dL (0.76-1.46); Thyroid Stim Hormone (TSH) 2.16 uIU/mL (0.358-3.74)
== END | disposition home or self-care (01) ==
LOC: LAB 12:01
PROVIDERS: Referring Provider Nurse Practitioner Gerontology; Visit Provider Nurse Practitioner Gerontology
DX: R53.83 Other fatigue (principal); E55.9 Vitamin D deficiency, unspecified
CPT/HCPCS: 36415; 80048; 82306; 83735; 84439; 84443; 84481; 85025

== ENCOUNTER 2024-03-18 18:12 | Emergency (ER) | payer MEDICAID, SELFPAY ==
[2024-03-18 18:13] VITALS: BP 155/84; PULSE 84; RESP 18; TEMP 36; O2SAT 98; BMI 31.9
--- NOTE | 2024-03-18 18:32 | EX.ED.DYSGE1 ---
HPI <MAYA Cortés - Last Filed: 03/18/24 18:44> History of Present Illness Chief Complaint: Dental Narrative Narrative: Patient is a 48-year-old male with history of CAD, type 2 diabetes who presents to the emergency department with complaints of pain to the right lower molar. Patient states that he broke the tooth on a piece of food 3 to 4 months ago. Patient states over the last 1.5 weeks, it is getting more painful and swollen. He did go to an emergency department early this last week, patient was placed on Augmentin as well as oxycodone. Patient states that the pain is still severe and he is here for a second opinion. Patient cannot get into his primary dentist/oral surgeon until April 05. Denies any fever or chills. PFSH <MAYA Cortés - Last Filed: 03/18/24 18:44> COUNTS INCLUDE 234 BEDS AT THE [facility] Medical History Atherosclerosis of coronary artery without angina pectoris CAD (coronary artery disease) Diabetes mellitus Hyperlipidemia Hypertension NSTEMI (non-ST elevated myocardial infarction) Obesity Type 2 diabetes mellitus Home Medications ?Medication ?Instructions ?Recorded ?Last Taken ?Type metformin 1,000 mg tablet 1,000 mg PO BID #60 tabs 02/28/23 Unknown Rx blood pressure monitor #1 ea 06/29/23 Unknown Rx atorvastatin 80 mg tablet 80 mg PO QHS #90 tabs 09/14/23 Unknown Rx lisinopril 10 mg tablet 10 mg PO DAILY #90 tabs 09/14/23 Unknown Rx metoprolol tartrate 25 mg tablet 25 mg PO BID #180 tabs 09/14/23 Unknown Rx aspirin 81 mg tablet,delayed 81 mg PO BREAKFAST #90 tabs 12/30/23 Unknown Rx release clopidogrel 75 mg tablet 75 mg PO DAILY #90 tabs 12/30/23 Unknown Rx amoxicillin 500 mg-potassium tab PO 03/18/24 Unknown History clavulanate 125 mg tablet naproxen 500 mg tablet (Naprosyn) 500 mg PO BID PRN pain #20 tabs 03/18/24 Unknown Rx oxycodone 5 mg tablet 5 mg PO TID PRN PRN pain 03/18/24 Unknown History Allergy/AdvReac Type Severity Reaction Status Date / Time No Known Allergies Allergy Verified 03/18/24 18:14 Family History Mother Heart disease Hypertension CAD (coronary artery disease) Myocardial infarction Heart transplant recipient Father Heart disease Hypertension CAD (coronary artery disease) Myocardial infarction Surgical History History of coronary artery stent placement (07/20/22) Social History household members: spouse and children housing: house Smoking Status: Current every day smoker tobacco type: cigarettes alcohol intake: current alcohol intake frequency: holidays/special occasions only Alcohol type: wine substance use type: does not use caffeine: Yes Type: coffee Number of servings: 5 ROS <MAYA Cortés - Last Filed: 03/18/24 18:44> ROS ED ROS Narrative Constitutional: Negative for fever, chills, weight loss, weakness Eyes: Negative for vision loss, vision change, double vision ENT: Negative for any sore throat, ear pain, congestion. Pain to the right lower jaw, right lower tooth Cardiovascular: Negative for any chest pain, tightness, palpitations Respiratory: Negative for any cough, sputum production, hemoptysis, dyspnea, dyspnea on exertion, orthopnea Gastrointestinal: Negative for any abdominal pain, nausea, vomiting, diarrhea, constipation, blood in stool, blood in vomit : Negative for any urinary frequency, dysuria, retention, blood in urine Muscle skeletal: Negative for any neck pain, back pain Neurological: Negative for any headache, syncope, dizziness Skin: Negative for any rashes, itching, abrasions, lacerations Psychiatric: Negative for any depression, anxiety, stress, suicidal ideation, homicidal ideation Hematologic: Negative for any excessive bruising, easy bleeding EXAM <MAYA Crotés - Last Filed: 03/18/24 18:44> Physical Exam Narrative Exam Narrative: Vital signs reviewed. HEET: Head normocephalic atraumatic, TMs clear bilaterally. Posterior pharynx is clear, moist mucous membranes. Nares clear bilaterally. Patient has a small fractured tooth to the right lower jaw, the right lower molar. There is no drainable abscess. There is no trismus. Neck: Supple with no lymphadenopathy or tenderness. No signs of meningismus. Cardiac: Regular rate and rhythm no murmurs gallops or rubs, equal peripheral pulses bilaterally. Respiratory: Lungs clear to auscultation bilaterally. No chest tenderness. Abdomen: Soft, nontender, nondistended. No abdominal bruit or pulsatile masses. No hepatosplenomegaly Extremities: No peripheral edema, no signs of gross trauma or deformity. Active full range of motion of all extremities. Neuro: Cranial nerves II through XII intact, no focal neurological deficits. Skin: Clean dry and intact with no rash, purpura, petechiae, vesicles or pustules. Backs/flank: No CVA tenderness, no midline spinal tenderness, no deformity. Psych: Normal mood and affect. No SI, HI or acute psychosis. Const Vital Signs: 03/18/24 18:13 Temperature 96.8 F L Temperature Source Temporal Pulse Rate 84 Respiratory Rate 18 Blood Pressure 155/84 H Blood Pressure Mean 107 Pulse Ox 98 <Dr. Rod Kohli DO - Last Filed: 03/18/24 18:44> Physical Exam Const Vital Signs: 03/18/24 18:13 Temperature 96.8 F L Temperature Source Temporal Pulse Rate 84 Respiratory Rate 18 Blood Pressure 155/84 H Blood Pressure Mean 107 Pulse Ox 98 [facility] <MAYA Cortés - Last Filed: 03/18/24 18:44> [facility] Treatment and Re-Evaluation :: Differential diagnosis includes however is not limited to: Dental caries, fractured tooth, reversible pulpitis Patient appears generally well, vital signs are stable, patient is nontoxic-appearing. Presenting to the emergency department with complaints of pain to the right lower molar. There is no drainable abscess. There is no significant edema. Patient has no trismus. At this time, patient is already on Augmentin as well as oxycodone, I do believe the patient is at the max of his oral medications. I spoke with the patient regarding other options, patient be given a dental referral list, I will use the temporary cavity paste for the patient. Patient be given dental referral list. Continue take the antibiotics as well as the pain medicine. Patient will given a prescription for naproxen as well, instructed return for any worsening symptoms. <Dr. Rod Kohli DO - Last Filed: 03/18/24 18:44> [facility] Narrative Medical decision making narrative: I have personally performed a face to face assessment of the patient and have reviewed the INOCENCIO Note. I performed a substantive portion of the visit including all aspects of the following. My bautista findings include: History: Patient presents with right lower dental pain that has been getting worse over the past several days. Patient states the pain is worse with any chewing or eating. Patient also states it is worse with palpation. Patient states nothing seems to help with his pain. Patient is on Augmentin and oxycodone. Patient states he has an appointment with the dentist on 04/05/2024. Patient denies any fevers or chills. Patient denies any difficulty breathing or difficulty swallowing. Exam: Vital signs are stable. Patient is afebrile. Patient is in no acute distress. Oral mucosa is pink and moist. Oropharynx is clear. Airway is patent. There is a dental carry noted over the right lower second molar. There is tenderness to palpation over this area. There is no fluctuance. There is no evidence of any abscess. There is no sublingual edema. There is no evidence of Magdy's angina. Medical Decision Making: Since the patient is currently on Augmentin and oxycodone, I do not feel those medications need to be adjusted at this time. We did place cavit temporary filling over the dental carry. Patient was given a list of dental referrals to see if he can get into a dentist anytime sooner. Patient was instructed to continue his Augmentin and oxycodone as prescribed. Patient was instructed to return if worse in any way. Patient understood and was agreeable with the plan. All questions were answered. Discharge Plan Triage Chief Complaint: Dental ED Midlevel Provider: Carlos Raza ED Provider: Rod Kohli Dx/Rx/DC Orders Clinical Impression: Pain due to dental caries, Fracture of tooth Instructions: ED Dental Cavity, ED Dental Trauma Prescriptions: New naproxen [Naprosyn] 500 mg tablet 500 mg PO BID PRN (Reason: pain) Qty: 20 0RF No Action (DME) blood pressure monitor Kit See Rx Instructions .Route Qty: 1 0RF Rx Instructions: As directed amoxicillin-pot clavulanate 500-125 mg tablet PO oxycodone 5 mg tablet 5 mg PO TID PRN PRN (Reason: pain) metformin 1,000 mg tablet 1,000 mg PO BID Qty: 60 0RF metoprolol tartrate 25 mg tablet 25 mg PO BID Qty: 180 3RF lisinopril 10 mg tablet 10 mg PO DAILY Qty: 90 3RF atorvastatin 80 mg tablet 80 mg PO QHS Qty: 90 3RF aspirin 81 mg tablet,delayed release (DR/EC) 81 mg PO BREAKFAST Qty: 90 3RF clopidogrel 75 mg tablet 75 mg PO DAILY Qty: 90 3RF Primary Care Provider: Care Physician,No Primary Referrals: Care Physician,No Primary [Primary Care Provider] - Activity Restrictions/Additional Instructions: You are on the right antibiotic, you on a stronger pain medicine. I see that you are only on oxycodone, you can supplement Tylenol. I will give you the dental referral list. Print Language: Macanese Disposition Disposition: Home, Self Care
[2024-03-18 18:55] VITALS: BP 155/84; PULSE 84; RESP 18; TEMP 36; O2SAT 98
== END 2024-03-18 18:56 | disposition home or self-care (01) ==
PROVIDERS: Emergency Provider Emergency Medicine; Visit Provider Emergency Medicine
DX: K02.9 Dental caries, unspecified (principal); E11.638 Type 2 diabetes mellitus with other oral complications; I25.10 Atherosclerotic heart disease of native coronary artery without angina pectoris; E78.5 Hyperlipidemia, unspecified; I10 Essential (primary) hypertension; S02.5XXA Fracture of tooth (traumatic), initial encounter for closed fracture; F17.210 Nicotine dependence, cigarettes, uncomplicated; X58.XXXA Exposure to other specified factors, initial encounter
CPT/HCPCS: 99282